=== PATIENT | female | born 1945 | race Caucasian/White ===

== ENCOUNTER 2025-08-15 08:48 | Outpatient (REF) | payer SELFPAY ==
--- OUTSIDE RECORDS SUMMARY | 2025-08-15 08:52 | XMS_ITS | Clinical Summary ---
Author Organization [facility] Address [address] [place] [address] Care Team Providers Care Layout Former Name Role Phone Danae Sanchez MD Primary Care Provider Allergies Active Allergy Reactions Criticality Noted Date Comments Lisinopril 09/21/2021 Medications Medication Sig Dispensed Refills Start Date End Date Status FLUoxetine (PROzac) 40 MG capsule Take 40 mg by mouth. 0 01/11/2019 Active hydroCHLOROthiazide (HYDRODIURIL) tablet 25 mg 0 04/14/2019 Active pravastatin (PRAVACHOL) tablet 20 mg 0 04/14/2019 Active amLODIPine (NORVASC) tablet 5 mg Take 5 mg by mouth. 0 01/11/2019 Activ e traZODone (DESYREL) 50 MG tablet 0 04/23/2019 Active Magnesium Oxide 400 (240 Mg) MG TABS Take 1 tablet by mouth. 0 06/13/2017 Active Multiple Vitamins tablet Take 1 tablet by mouth. 0 07/11/2014 Active [place]-3 Fatty Acids (FISH OIL) 1000 MG CAPS Take 1,000 mg by mouth. 0 01/10/2017 Active Timolol Maleate 0.5 % (DAILY) SOLN Apply 1 drop to eye. 0 Active vitamin E 400 UNIT capsule Take 1 capsule by mouth. 0 01/10/2017 Active acetaminophen (TYLENOL) 650 MG CR tablet Take 650 mg by mouth. 0 01/10/2017 Active aspirin 81 MG tablet Take 81 mg by mouth. 0 Active Calcium Carbonate-Vitamin D 600-400 MG-UNIT per tablet Take 1 tablet by mouth. 0 01/11/2019 Active fluticasone (FLONASE) 50 MCG/ACT nasal spray spray or apply 2 sprays inside Nose. 0 Active oxybutynin (DITROPAN) 5 MG tablet 0 07/31/2019 Active HYDROcodone-acetami nophen (NORCO) 5-325 MG per tablet Take 1 tab every 12 hours as needed for pain 20 tablet 0 10/15/2019 Active Coenzyme Q10 100 MG capsule Take 2 capsules by mouth daily. 0 Active albuterol 108 (90 Base) MCG/ACT inhaler 0 07/29/2021 Active celecoxib (CeleBREX) 200 MG capsule 0 07/29/2021 Active [place] Inhub 250-50 MCG/DOSE DISKUS 0 07/29/2021 Active gabapentin (NEURONTIN) 300 MG capsule 0 07/29/2021 Active acetaminophen (TYLENOL EXTRA STRENGTH) 500 MG tablet Take 500 mg by mouth. 0 Active amoxicillin (AMOXIL) 500 MG tablet Take 4 tabs 1 hour prior to dental appointment 20 tablet 3 08/10/2021 Active fluconazole (DIFLUCAN) 100 MG tablet 0 08/12/2021 Active Spiriva HandiHaler 18 MCG inhalation capsule 0 09/01/2021 Active oxyCODONE (ROXICODONE) 5 MG immediate release tablet Take 1 tab every 24 hours as needed for pain 30 tablet 0 12/21/2021 Active Synthroid 25 MCG tablet 0 03/15/2022 Active losartan (COZAAR) tablet 25 mg Take 25 mg by mouth daily. 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 Shoulder impingement, right 05/07/2019 Social History Tobacco Use Types Packs/Day Years Used Date Smoking Tobacco: Every Day Cigarettes 1 Smokeless Tobacco: Never Alcohol Use Standard Drinks/Week Comments Yes 3 (1 standard drink = 0.6 oz pur e alcohol) Sex and Gender Information Value Date Recorded Sex Assigned at Not on file Gender Identity Not on file Sexual Orientation Not on file Job Start Date Occupation Industry Not on file Not on file Not on file Last Filed Vital Signs Vital Sign Reading Time Taken Comments Blood Pressure - - Pulse - - Temperature - - Respiratory Rate - - Oxygen Saturation - - Inhaled Oxygen Concentration - - Weight 77.6 kg (171 lb) 03/23/2022 11:25 AM EDT Height 162.6 cm (5' 4 ) 03/23/2022 11:25 AM EDT Body Mass Index 29.35 03/23/2022 11:25 AM EDT Plan of Treatment Health Maintenance Due Date Last Done Comments Hepatitis C Screening 1945 COVID-19 Vaccine (#1) 06/18/1946 Depression Screening 1958 Preventative Health Evaluation 1964 Tobacco Cessation Counseling 1964 Shingrix-Zoster Vaccine (1 o f 2) 1996 Fall Risk Assessment 12/17/2011 Osteoporosis Screening (DEXA Scan) 12/17/2011 RSV Adult > 60+ Yrs or (1 - 1-dose 75+ series) 2021 Influenza Vaccine (#1) 2025 9, 06/15/2012, 07/26/2011 DTap / Tdap / Td (2 - Td or Tdap) 11/11/2031 11/11/2021 Pneumococcal Vaccine Completed 11/11/2021, 01/10/2017, 03/17/2011 Hepatitis B Vaccines Aged Out No long er eligible based on patient's age to complete this topic RSV Ped < 20 months Aged Out No longe r eligible based on patient's age to complete this topic Care Teams Layout Former Relationship Specialty Start Date End Date Danae Sanchez MD [address] [facility] [address] [place] [address] PCP - General Internal Medicine 04/05/19
--- OUTSIDE RECORDS SUMMARY | 2025-08-15 08:52 | XMS_ITS | Clinical Summary ---
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 Active timoloL maleate 0.5 % drops, once daily apply 1 Drop to the eye daily. Active aspirin 81 mg EC tablet Take 81 mg by mouth daily. Active albuterol HFA (PROAIR HFA ; PROVENTIL HFA ; VENTOLIN HFA) 90 mcg/actuation inhalerIndicati ons:ILD (interstitial lung disease) (CMS/HCC V24, CMS/HCC V28),Chronic obstructive pulmonary disease, unspecified COPD type (CMS/HCC V24, CMS/HCC V28) Inhale 2 puffs by mouth every 6 (six) hours if needed for wheezing. 3 each 3 5 09/25/19 26 Active FLUoxetine (PROzac) 40 mg capsule Take 1 capsule (40 mg total) by mouth 1 (one) time each day. 90 capsule 3 4 Active buPROPion XL (WELLBUTRIN XL) 150 mg 24 hr tablet Take 1 tablet (150 mg total) by mouth 1 (one) time each day in the morning. 90 tablet 3 5 Active traZODone (DESYREL) 100 mg tablet TAKE 1 TABLET BY MOUTH AT BEDTIME 90 tablet 3 5 Active levothyroxine (SYNTHROID, LEVOTHROID) 50 mcg tablet Take 1 tablet (50 mcg total) by mouth 1 (one) time each day. 90 tablet 3 5 Active meloxicam (MOBIC) 7.5 mg tablet Take 1 tablet (7.5 mg total) by mouth 1 (one) time each day. 90 tablet 3 5 Active oxyBUTYnin (DITROPAN) 5 mg tablet Take 1 tablet (5 mg total) by mouth 2 (two) times a day. 180 tablet 3 5 Active senna-docusate (PERICOLACE) 8.6-50 mg per tablet Take 1 tablet by mouth 1 (one) time each day. 90 each 3 5 Active fluticasone propionate (FLONASE) 50 mcg/actuation nasal spray Administer 2 sprays into each nostril 1 (one) time each day. 48 g 1 5 Active losartan (COZAAR) 25 mg tablet TAKE 1 TABLET BY MOUTH DAILY 90 tablet 3 5 Active tiotropium (Spiriva Respimat) 2.5 mcg/actuation inhalation sprayIndication s:ILD (interstitial lung disease) (CMS/HCC V24, CMS/HCC V28),Chronic obstructive pulmonary disease, unspecified COPD type (CMS/HCC V24, CMS/HCC V28) Inhale 2 puffs by mouth 1 (one) time each day. 3 each 3 5 03/10/20 26 Active Advair HFA 230-21 mcg/actuation inhalerIndicati ons:ILD (interstitial lung disease) (CMS/HCC V24, CMS/HCC V28),Chronic obstructive pulmonary disease, unspecified COPD type (CMS/HCC V24, CMS/HCC V28) INHALE 2 PUFFS BY MOUTH 2 TIMES A DAY. RINSE MOUTH WITH WATER AFTER USE TO REDUCE AFTERTASTE AND INCIDENCE OF CANDIDIASIS. DO NOT SWALLOW. 36 each 3 5 Active budesonide-form oteroL (Breyna) 160-4.5 mcg/actuation inhaler Inhale 2 puffs by mouth 2 (two) times a day. Rinse mouth with water after use to reduce aftertaste and incidence of candidiasis. Do not swallow. 3 each 3 5 03/10/20 26 Active pravastatin (PRAVACHOL) 20 mg tablet Take 1 tablet (20 mg total) by mouth 1 (one) time each day. 90 tablet 3 5 Active tiotropium (SPIRIVA RESPIMAT) 2.5 mcg/actuation inhalation sprayIndication s:Pulmonary emphysema, unspecified emphysema type Inhale 2 puffs by mouth 1 (one) time each day. 1 each 11 5 04/02/20 26 Active fluticasone furoate-vilante roL (Breo Ellipta) 200-25 mcg/dose inhaler Inhale 1 puff by mouth 1 (one) time each day. 1 each 11 5 04/23/20 26 Active fluticasone-ume clidinium-vilan terol (Trelegy Ellipta) 100-62.5-25 mcg inhaler Inhale 1 puff (100 mcg total) by mouth 1 (one) time each day. Rinse mouth with water after use to reduce aftertaste and incidence of candidiasis. Do not swallow. 3 each 3 5 07/31/20 26 Active blood pressure monitor (Blood Pressure Kit) kit 1 Kit by Does not apply route three times a week. 2 07/31/20 25 Discontin ued(Patie nt Discharge ) Active Problems Problem Noted Date Diagnosed Date Current smoker 08/07/2024 Depression 08/07/2024 Benign hypertension 08/07/2024 Assessment & Plan (10/31/2024 4:06 PM EST): Blood pressure is normal. I will discontinue hydrochlorothiazide. 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 Left ventricular systolic function was mildly reduced. I will discontinue hydrochlorothiazide and amlodipine. We will start low-dose losartan. Would like to arrange stress test. Assessment & Plan (10/31/2024 4:06 PM EST): Left ventricular systolic function was mildly reduced by echocardiogram but completely normal with stress test. Will update echocardiogram in 1 year. Interstitial lung disease (CMS/HCC V24, CMS/HCC V28) 10/18/2021 Overview (07/09/2024): Last Assessment & Plan: Mild interstitial lung disease Patient did not tolerate Ninetanib She continue doing all her regular activities with only with mild dyspnea on exertion Follow-up in 1 year with pulmonary function test. LBBB (left bundle branch block) 10/05/2020 Overview (07/09/2024): Last Assessment & Plan: Most likely from conduction system degenerative disorder. Assessment & Plan (10/31/2024 4:06 PM EST): Has been chronic. Will continue to monitor for further progression of arrhythmia. Orders: Transthoracic echocardiogram (TTE) complete with PRN contrast, bubble, strain, and 3D order panel; Future Nontraumatic complete tear of right rotator cuff 05/07/2019 Shoulder impingement, right 05/07/2019 Hyperlipidemia 01/30/2018 Overview (07/09/2024): Last Assessment & Plan: Has resumed statin. We will repeat another lipid profile in a couple of months. Suggest her to take coenzyme Q 10. Hypertension 01/30/2018 Overview (07/09/2024): Last Assessment & Plan: Overall well controlled. Insomnia 01/30/2018 Colon polyps 10/26/2017 Depression, major 06/13/2017 Degenerative joint disease (DJD) of hip 06/12/20 17 Glaucoma 01/10/2017 Degenerative joint disease of knee 07/12/2016 Osteoporosis 07/04/2016 Chronic constipation 01/04/2016 Encounters Date Type Department Care Team Description 08/06/2025 Lab Requisition [facility] [address] [place] [phone] Rogelio Avelar MD Anemia, unspecified 07/31/2025 3:00 PM EST Procedure visit Pulmonology [facility] 175 [facility] [address] [place] [phone] Dyspnea, unspecified type 07/31/2025 2:45 PM EST Office Visit Pulmonology [facility] [address] [phone] Akilah Bowen MD Dyspnea, unspecified type (Primary Dx); Pulmonary fibrosis (CMS/HCC V24, CMS/HCC V28); Chronic obstructive pulmonary disease, unspecified COPD type (CMS/HCC V24, CMS/HCC V28); Lung nodules; Recurrent pneumonia; Hypoxemia; Hospital discharge follow-up; Ex-smoker 07/30/2025 Lab Requisition [facility] [address] [place] [phone] Rogelio Avelar MD Anemia, unspecified 07/23/2025 Lab Requisition [facility] [address] [place] [phone] Rogelio Avelar MD Anemia, unspecified 07/20/2025 Lab Requisition [facility] [address] [place] [address] Rogelio Avelar MD Urinary tract infection, site not specified; Dysuria 07/17/2025 Lab Requisition [facility] [address] [place] [phone] Rogelio Avelar MD Anemia, unspecified from Last 3 Months Immunizations Immunization Administration Dates Next Due Influenza trivalent, 0.5mL (Fluad) 65yo and olde r 07/30/2019 Influenza trivalent, with pr eservative (Fluzone; Afluria) 6mo and older 06/15/2012,07/26/2011 Pneumococcal conjugate 13 va lent (Prevnar 13, PCV13) 2mo and older 01/10/2017 Pneumococcal conjugate 20 va lent (Prevnar 20, PCV 20) 2mo and older 08/03/2023 Pneumococcal polysaccharide 23 valent (Pneumovax 23) 2yo and older 11/11/2021,03/17/2011 Tdap Tetanus diptheria acell ular pertussis (Boostrix; Adacel) 7yo and older 11/11/2021,03/17/2011 Zoster Live 03/17/2011 Surgical History Surgery Date Site/Laterality Comments TUBAL LIGATION PROCEDURE: HISTORICAL TUBAL LIGATION TYMPANOSTOMY TUBE PLACEMENT PROCEDURE: HISTORICAL PE TUBES CATARACT EXTRACTION PROCEDURE: HISTORICAL CATARACT REMOVAL TOTAL KNEE ARTHROPLASTY PROCEDURE: TN ARTHRP KNE CONDYLE&PLATU MEDIAL&LAT COMPARTMENTS Medical History Medical History Date Comments Chronic constipation 01/04/2016 DX:Chronic constipation Colon polyps 10/26/2017 DX:Colon polyps Degenerative joint disease ( DJD) of hip 06/12/2017 DX:Degenerative joint diseas e (DJD) of hip Depression, major 06/13/2017 DX:Depression, major Degenerative joint disease of knee 07/12/2016 DX:Degenerative joint disease of knee Glaucoma 01/10/2017 DX:Glaucoma History of rheumatic fever 07/16/2018 DX:Hi story of rheumatic fever Hyperlipidemia 01/30/2018 DX:Hyperlipidemi a Hypertension 01/30/2018 DX:Hypertension Insomnia 01/30/2018 DX:Insomnia Osteoporosis 07/04/2016 DX:Osteoporosis Tobacco use 10/26/2017 DX:Tobacco use Family History Medical History Relation Name Comments Other: heart attack Father Breast cancer Mother's Sister Relation Name Status Comments Father Mother's Sister Alive Social History Tobacco Use Types Packs/Day Years Used Date Smoking Tobacco: Every Day Cigarettes 1 Last attempted to quit: 07/26/2021 Smokeless Tobacco: Never Tobacco Cessation:Ready to Q uit: Not Asked; Counseling Given: Not Answered Alcohol Use Standard Drinks/Week Comments Yes 0 (1 standard drink = 0.6 oz pur e alcohol) Housing Instability Answer Date Recorde d Are you worried that in the next 2 months you may not have stable housing? No 08/14/2024 Food Access & Nutrition Answer Date Rec orded Do you have access to a vari ety of food including fruits and vegetables? Yes 08/14/2024 Access to Healthcare Answer Date Record ed Within the last 3 months, ho w many times did you visit the emergency department for your medical care? 0 08/14/2024 Health Literacy Answer Date Recorded How often do you need to hav e someone help you when you read instructions, pamphlets, or other written material from your doctor or pharmacy? Never 08/14/2024 Caregiver: How often do you need to have someone help you when you read instructions, pamphlets, or other written material from your doctor or pharmacy? Not on file 08/14/2024 Financial Risk Answer Date Recorded How hard is it for you to pa y for the very basics like food, housing, medical care, and air conditioning / heating? Not very hard 08/14/2024 Transportation Answer Date Recorded Has the lack of transportati on kept you from meetings, work, or from getting things needed for daily living? No Has the lack of transportati on kept you from medical appointments or from getting medications? No 08/14/2024 Social Isolation Answer Date Recorded How often do you feel lonely or isolated from th ose around you? Rarely 08/14/2024 Food Risk Answer Date Recorded Within the past 12 months we worried whether our food would run out before we got money to buy more. Never true 08/14/2024 Within the past 12 months th e food we bought just didn't last and we didn't have money to get more. Never true 08/14/2024 Dependent Care Answer Date Recorded Do you need help finding or paying for care for your loved ones. For example, child development teacher or elderly care for an older adult? No 08/14/2024 Education Answer Date Recorded Do you think completing more education or training, like finishing a GED, going to college, or learning a trade, would be helpful for you? No 08/14/2024 Employment and Income Answer Date Recor ded During the last four weeks, have you been actively looking for work? No 08/14/2024 Living Situation Answer Date Recorded What is your living situation? Unrecognized valu e 08/14/2024 Interpersonal Safety Answer Date Record ed Physical Abuse Unrecognized value 12/24/2024 Verbal Abuse Unrecognized value 12/24/2024 Comments No Sex and Gender Information Value Date Recorded Sex Assigned at Female 08/19/2024 12:54 PM EST Legal Sex Female 12:49 AM EST Gender Identity Female 08/19/2024 12:54 PM EST Sexual Orientation Straight 08/19/2024 12 :54 PM EST Obstetrics History Para Term AB IAB SAB Ectopic Multiple Livin g Live Births 2 Last Filed Vital Signs Vital Sign Reading Time Taken Comments Blood Pressure 115/52 07/31/2025 2:45 PM EST Pulse 62 07/31/2025 2:45 PM EST Temperature 36.1 C (97 F) 07/31/2025 2:45 PM EST Respiratory Rate 18 07/31/2025 2:45 PM EST Oxygen Saturation 100% 07/31/2025 2:45 PM EST Inhaled Oxygen Concentration - - Weight 59 kg (130 lb) 07/31/2025 2:45 PM EST Height 162.6 cm (5' 4 ) 07/31/2025 2:45 PM EST Body Mass Index 22.31 07/31/2025 2:45 PM EST Plan of Treatment Upcoming Encounters Date Type Department Care Team (Late st Contact Info) Description 10/20/2025 3:30 PM EST Ancillary Procedure [facility] [address] [place] [phone] 12/01/2025 3:45 PM EDT Office Visit Pulmonology - [place] 175 [facility] [address] [place] [phone] Akilah Bowen MD [address] [place] [phone] Health Maintenance Due Date Last Done Comments Hepatitis C Screening 09/01/2022 Osteoporosis Screening (Bone Density Screening) 09/01/2022 Zoster Vaccines (3 of 3) 03/12/2025 01/15/2025, 02/24 COVID-19 Vaccine ( season) 2025 07/26/2024, 07/29/2023, 07/28/2022, Additional history exists Influenza Vaccine (#1) 2025 , 07/29/2023, 07/21/2022, Additional history exists Social Influencers of Health Screening 08/14/2025 08/14/2024 Medicare Annual Wellness Visit 08/21/2025 08/21/2024 Falls Risk Assessment 12/24/2025 12/24/2024, 024 Hypertension/CHF/CAD Annual BMP Blood Test 08/07/2026 08/07/2025, 07/31/2025, 07/24/2025, Additional history exists Cholesterol Screening (Lipid Panel) 09/02/2029 09/02/2024, 12/20/2023 DTaP,Tdap,and Td Vaccines (3 - Td or Tdap) 11/11/2031 11/11/2021, 03/17/2011 Lung Cancer Screening (Low Dose CT) Discontinued 10/19/2020 Pneumococcal Vaccine: 50+ Years Completed 08/03/2023, 11/11/2021, 01/10/2017, Additional history exists RSV Immunization Adult Patients Completed 08/11/2023 Colorectal Cancer Screening: Colonoscopy Discontinued 12/24/2024, 12/24/2024, 12/23/2024, Additional history exists Depression Screening Completed 01/07/2025 HIB Vaccines Aged Out No longer eligi ble based on patient's age to complete this topic HPV Vaccines Aged Out No longer eligi ble based on patient's age to complete this topic Hepatitis A Vaccines Aged Out No long er eligible based on patient's age to complete this topic Hepatitis B Vaccines Aged Out No long er eligible based on patient's age to complete this topic IPV Vaccines Aged Out No longer eligi ble based on patient's age to complete this topic MMR Vaccines Aged Out No longer eligi ble based on patient's age to complete this topic Meningococcal ACWY Vaccine Aged Out N o longer eligible based on patient's age to complete this topic Meningococcal B Vaccine Aged Out No l onger eligible based on patient's age to complete this topic RSV Immunization Patients Under 20 months Aged Out No longer eligible based on patient's age to complete this topic Varicella Vaccines Aged Out No longer eligible based on patient's age to complete this topic Procedures Procedure Name Priority Date/Time Associated Diagnosis Comments BASIC METABOLIC PANEL Routine 08/07/2025 8:19 AM EST Anemia, unspecified COMPLETE BLOOD COUNT Routine 08/07/2025 8:19 AM EST Anemia, unspecified SIX MINUTE WALK TEST Routine 07/31/2025 4:23 PM EST Dyspnea, unspecified type BASIC METABOLIC PANEL Routine 07/31/2025 7:33 AM EST Anemia, unspecified COMPLETE BLOOD COUNT Routine 07/31/2025 7:33 AM EST Anemia, unspecified BASIC METABOLIC PANEL Routine 07/24/2025 7:40 AM EDT Anemia, unspecified COMPLETE BLOOD COUNT Routine 07/24/2025 7:40 AM EDT Anemia, unspecified URINALYSIS WITH REFLEX MICROSCOPIC Routine 07/19/2025 9:00 PM EDT Urinary tract infection, site not specified Dysuria URINALYSIS WITH REFLEX MICROSCOPIC Routine 07/19/2025 9:00 PM EDT Urinary tract infection, site not specified Dysuria CULTURE URINE Routine 07/19/2025 9:00 PM EDT Urinary tract infection, site not specified Dysuria COMPREHENSIVE METABOLIC PANEL Routine 07/17/2025 10:02 AM EDT Anemia, unspecified COMPLETE BLOOD COUNT Routine 07/17/2025 10:02 AM EDT Anemia, unspecified COLONOSCOPY Routine 12/24/2024 12:04 PM EDT Colon cancer screening LIPID PANEL WITH REFLEX TO DIRECT LDL Routine 09/02/2024 10:17 AM EST Mixed hyperlipidemia Primary hypertension Cardiomyopathy, unspecified type (CMS/HCC V24, CMS/HCC V28) CT LUNG SCREENING LOW DOSE Routine 10/19/2020 4:14 PM EST Personal history of nicotine dependence from Last 3 Months or Most Recently Relevant to Health Maintenance Results * (ABNORMAL) Complete blood count (08/07/2025 8:19 AM EST) Only the most recent of4 resultswithin the time period is included. WBC 11.7(H) 4.8 - 10.8 K/mcL LAB HEMETOLOGY METHOD 08/07/2025 11:34 AM [facility] RBC 3.30(L) 3.80 - 4.80 M/mcL LAB HEMETOLOGY METHOD 08/07/2025 11:34 AM [facility] Hemoglobin 9.7(L) 11.5 - 16.0 g/dL LAB HEMETOLOGY METHOD 08/07/2025 11:34 AM [facility] Hematocrit 30.4(L) 35.0 - 47.0 % LAB HEMETOLOGY METHOD 08/07/2025 11:34 AM [facility] MCV 93.3 79.0 - 98.0 FL LAB HEMETOLOGY METHOD 08/07/2025 11:34 AM [facility] MCH 29.8 27.0 - 32.0 pcg LAB HEMETOLOGY METHOD 08/07/2025 11:34 AM [facility] MCHC 31.9(L) 32.0 - 37.0 g/dL LAB HEMETOLOGY METHOD 08/07/2025 11:34 AM [facility] RDW 17.7(H) 11.0 - 15.0 % LAB HEMETOLOGY METHOD 08/07/2025 11:34 AM [facility] Platelets 339 130 - 400 K/mcL LAB HEMETOLOGY METHOD 08/07/2025 11:34 AM [facility] MPV 10.4 7.0 - 11.0 FL LAB HEMETOLOGY METHOD 08/07/2025 11:34 AM [facility] NRBC 0.0 <1.0 % LAB HEMETOLOGY METHOD 08/07/2025 11:34 AM [facility] NRBC Absolute 0.00 <0.10 K/mcL LAB HEMETOLOGY METHOD 08/07/2025 11:34 AM [facility] Blood Venous blood specimen / Unknown Venipuncture / Unknown 08/07/2025 8:19 AM EST 08/07/2025 11:18 AM EST us Rogelio Avelar MD LAB BLOOD ORDERABLES Final Result [facility] [address] [place] [address], [place] [phone] * (ABNORMAL) Basic metabolic panel (08/07/2025 8:19 AM EST) Only the most recent of3 resultswithin the time period is included. Sodium 140 133 - 145 mmol/L LAB CHEMISTRY METHOD 08/07/2025 12:14 PM [facility] Potassium 3.6 3.5 - 5.5 mmol/L LAB CHEMISTRY METHOD 08/07/2025 12:14 PM [facility] Chloride 102 96 - 110 mmol/L LAB CHEMISTRY METHOD 08/07/2025 12:14 PM [facility] CO2 32 21 - 32 mmol/L LAB CHEMISTRY METHOD 08/07/2025 12:14 PM [facility] Anion Gap 6 3 - 11 LAB CHEMISTRY METHOD 08/07/2025 12:14 PM [facility] Glucose 53(L) 70 - 100 mg/dL LAB CHEMISTRY METHOD 08/07/2025 12:14 PM [facility] BUN 26(H) 5 - 25 mg/dL LAB CHEMISTRY METHOD 08/07/2025 12:14 PM [facility] Creatinine 1.05 0.50 - 1.10 mg/dL LAB CHEMISTRY METHOD 08/07/2025 12:14 PM [facility] eGFR 54(L) >=60 mL/min/1. 73m2 LAB CHEMISTRY METHOD 08/07/2025 12:14 PM EST [facility] Comment:Calculation based on the Chronic Kidney Disease Epidemiology Collaboration (CKD-EPI) equation refit without adjustment for race. BUN/Creatinine Ratio 24.8 LAB CHEMISTRY METHOD 08/07/2025 12:14 PM EST [facility] Calcium 8.2(L) 8.5 - 10.5 mg/dL LAB CHEMISTRY METHOD 08/07/2025 12:14 PM EST [facility] Blood Venous blood specimen / Unknown Venipuncture / Unknown 08/07/2025 8:19 AM EST 08/07/2025 11:21 AM EST us Rogelio Avelar MD LAB BLOOD ORDERABLES Final Result [facility] [address] [place] [address], [place] [phone] * 6 minute walk test (07/31/2025 4:23 PM EST) Impressions Akilah Bowen MD - 07/31/2025 4:23 PM EST Modified Walked six minutes covering, Mild SOB Lowest oxygen saturation was 88%. Returned to [facility] lab for Rest & Recovery. After 1 min RaSpO2 = 97% HR = 70; After 2 min RaSpO2 = 99% HR = 64. Pt has indication for supplemental Oxygen for activity on 1-2lpm. us Akilah Bowen MD IN CLINIC/BEDSIDE ORDERABLES Fin al Result * (ABNORMAL) Urinalysis with reflex microscopic (07/19/2025 9:00 PM EDT) Specific [place] Urine 1.013 1.003 - 1.030 LAB URINALYSIS - AUTOMATED METHOD 07/20/2025 11:08 AM EDT [facility] pH, Urine 6.5 5.0 - 8.0 pH LAB URINALYSIS - AUTOMATED METHOD 07/20/2025 11:08 AM EDT [facility] Leukocytes, Urine Large(A) Negative LAB URINALYSIS - AUTOMATED METHOD 07/20/2025 11:08 AM [facility] Nitrite, Urine Negative Negative LAB URINALYSIS - AUTOMATED METHOD 07/20/2025 11:08 AM [facility] Protein, Urine 30(A) <=Trace mg/dL LAB URINALYSIS - AUTOMATED METHOD 07/20/2025 11:08 AM [facility] Glucose, Urine 250(A) Negative mg/dL LAB URINALYSIS - AUTOMATED METHOD 07/20/2025 11:08 AM [facility] Ketones, Urine Negative Negative mg/dL LAB URINALYSIS - AUTOMATED METHOD 07/20/2025 11:08 AM [facility] Urobilinogen , Urine 0.2 0.2 - 1.0 mg/dL LAB URINALYSIS - AUTOMATED METHOD 07/20/2025 11:08 AM [facility] Bilirubin, Urine Negative Negative LAB URINALYSIS - AUTOMATED METHOD 07/20/2025 11:08 AM [facility] Blood, Urine Small(A) Negative LAB URINALYSIS - AUTOMATED METHOD 07/20/2025 11:08 AM [facility] RBC, Urine 1.0 0 - 4 /HPF LAB URINALYSIS - AUTOMATED METHOD 07/20/2025 11:08 AM [facility] WBC, Urine 811.7(H) 0 - 4 /HPF LAB URINALYSIS - AUTOMATED METHOD 07/20/2025 11:08 AM [facility] Squamous Epithelial, Urine 19 0 - 60 /LPF LAB URINALYSIS - AUTOMATED METHOD 07/20/2025 11:08 AM [facility] Crystals, Urine LT CALCIUM OXALATE /LPF LAB URINALYSIS - AUTOMATED METHOD 07/20/2025 11:08 AM [facility] Bacteria, Urine Moderate(A) Negative /HPF LAB URINALYSIS - AUTOMATED METHOD 07/20/2025 11:08 AM EDT [facility] Hyaline Casts, Urine 2.1 0 - 3 /LPF LAB URINALYSIS - AUTOMATED METHOD 07/20/2025 11:08 AM EDT [facility] Yeast, Urine Present(A) None /HPF LAB URINALYSIS - AUTOMATED METHOD 07/20/2025 11:08 AM EDT [facility] Urine Urinary bladder structure / Unknown 07/19/2025 9:00 PM EDT 07/20/2025 9:41 AM EDT us Rogelio vAelar MD LAB URINE ORDERABLES Final Result Performing Organization Address City/[facility]/ZIP Co de Phone Number [facility] [address] [place] [address], [place] [phone] * (ABNORMAL) Culture urine (07/19/2025 9:00 PM EDT) Pathologist [facility] Culture, Urine 50,000-100, 000 CFU/mL Laura glabrata(A) THONG 07/24/2025 10:05 AM EDT [facility] Comment: The organism value for this result has been updated. These results have been appended to the previously preliminary verified report. Edited result: Previously reported as Yeast on 07/23/2025 at 0932 EDT. Urine Urinary bladder structure / Unknown 07/19/2025 9:00 PM EDT 07/20/2025 9:41 AM EDT us Rogelio Avelar MD LAB MICROBIOLOGY - GENERAL ORDERABLES Final Result [facility] [address] [place] [address], [place] [phone] * (ABNORMAL) Comprehensive metabolic panel (07/17/2025 10:02 AM EDT) Sodium 138 133 - 145 mmol/L LAB CHEMISTRY METHOD 07/17/2025 2:45 PM [facility] Potassium 3.6 3.5 - 5.5 mmol/L LAB CHEMISTRY METHOD 07/17/2025 2:45 PM [facility] Chloride 98 96 - 110 mmol/L LAB CHEMISTRY METHOD 07/17/2025 2:45 PM [facility] CO2 30 21 - 32 mmol/L LAB CHEMISTRY METHOD 07/17/2025 2:45 PM [facility] Anion Gap 10 3 - 11 LAB CHEMISTRY METHOD 07/17/2025 2:45 PM [facility] Glucose 67(L) 70 - 100 mg/dL LAB CHEMISTRY METHOD 07/17/2025 2:45 PM [facility] BUN 27(H) 5 - 25 mg/dL LAB CHEMISTRY METHOD 07/17/2025 2:45 PM [facility] Creatinine 1.33(H) 0.50 - 1.10 mg/dL LAB CHEMISTRY METHOD 07/17/2025 2:45 PM [facility] eGFR 41(L) >=60 mL/min/1. 73m2 LAB CHEMISTRY METHOD 07/17/2025 2:45 PM [facility] Comment:Calculation based on the Chronic Kidney Disease Epidemiology Collaboration (CKD-EPI) equation refit without adjustment for race. BUN/Creatinine Ratio 20.3 LAB CHEMISTRY METHOD 07/17/2025 2:45 PM [facility] Calcium 9.2 8.5 - 10.5 mg/dL LAB CHEMISTRY METHOD 07/17/2025 2:45 PM [facility] AST (SGOT) 23 10 - 42 unit/L LAB CHEMISTRY METHOD 07/17/2025 2:45 PM [facility] ALT (SGPT) 13 10 - 60 unit/L LAB CHEMISTRY METHOD 07/17/2025 2:45 PM [facility] Alkaline Phosphatase 65 42 - 121 unit/L LAB CHEMISTRY METHOD 07/17/2025 2:45 PM EDT [facility] Total Protein 5.5(L) 6.0 - 8.0 g/dL LAB CHEMISTRY METHOD 07/17/2025 2:45 PM EDT [facility] Albumin 2.5(L) 3.2 - 5.0 g/dL LAB CHEMISTRY METHOD 07/17/2025 2:45 PM EDT [facility] Total Bilirubin 0.3 0.0 - 1.4 mg/dL LAB CHEMISTRY METHOD 07/17/2025 2:45 PM EDT [facility] Blood Venous blood specimen / Unknown Venipuncture / Unknown 07/17/2025 10:02 AM EDT 07/17/2025 12:10 PM EDT Rogelio Avelar MD LAB BLOOD ORDERABLES Final Result Performing Organization Address City/State/[facility] Co de Phone Number [facility] [address] [place] [address], * COLONOSCOPY Anesthesia - MAC; [facility] ENDOSCOPY (12/24/2024 12:04 PM EDT) Anatomical Region Laterality Modality Endoscopy 12/24/2024 11:4 5 AM EDT Impressions 12/24/2024 12:05 PM EDT - One 8 mm polyp in the ascending colon, removed with a cold snare. Resected and retrieved. - A single (solitary) ulcer in the transverse colon. Clip (MR conditional) was placed. 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 - Diverticulosis in the sigmoid colon and in the descending colon. - Internal hemorrhoids. Recommendation: - Await pathology results. - No repeat colonoscopy due to age. Narrative 12/24/2024 12:05 PM EDT [facility] Patient Name: Mendy Jiang Procedure Date: 12/24/2024 11:45 AM Date of : 1945 Age: 79 Gender: Female Note Status: Finalized Attending MD: Janeth Mendoza MD, Procedure Date No Time: 12/24/2024 Procedure: Colonoscopy Indications: Surveillance: Personal history of adenomatous polyps, inadequate prep on last colonoscopy (less than 1 year ago) Providers: Janeth Mendoza MD Referring MD: Janeth Mendoza MD Medicines: Monitored Anesthesia Care Complications: No immediate complications. Estimated blood loss: Minimal. Estimated Blood Loss: Estimated blood loss was minimal. Procedure: Pre-Anesthesia Assessment: - Prior to the procedure, a History and Physical was performed, and patient medications and allergies were reviewed. The patient is competent. The risks and benefits of the procedure and the sedation options and risks were discussed with the patient. All questions were answered and informed consent was obtained. Patient identification and proposed procedure were verified by the physician, the nurse, the textile scrap salvager and the material handling technician in the pre-procedure area in the endoscopy suite. Mental Status Examination: alert and oriented. Airway Examination: normal oropharyngeal airway and neck mobility. Respiratory Examination: clear to auscultation. CV Examination: normal. Prophylactic Antibiotics: The patient does not require prophylactic antibiotics. Prior Anticoagulants: The patient has taken no anticoagulant or antiplatelet agents. ASA Grade Assessment: III - A patient with severe systemic disease. After reviewing the risks and benefits, the patient was deemed in satisfactory condition to undergo the procedure. The anesthesia plan was to use monitored anesthesia care (MAC). Immediately prior to administration of medications, the patient was re-assessed for adequacy to receive sedatives. The heart rate, respiratory rate, oxygen saturations, blood pressure, adequacy of pulmonary ventilation, and response to care were monitored throughout the procedure. The physical status of the patient was re-assessed after the procedure. After I obtained informed consent, the scope was passed under direct vision. Throughout the procedure, the patient's blood pressure, pulse, and oxygen saturations were monitored continuously. The Colonoscope was introduced through the anus and advanced to the cecum, identified by appendiceal orifice and ileocecal valve. The colonoscopy was performed without difficulty. The patient tolerated the procedure well. The quality of the bowel preparation was good. Findings: The perianal and digital rectal examinations were normal. An 8 mm polyp was found in the ascending colon. The polyp was multi-lobulated. The polyp was removed with a cold snare. Resection and retrieval were complete. Estimated blood loss was minimal. A single (solitary) nine mm ulcer was found in the transverse colon. No bleeding was present. No stigmata of recent bleeding were seen. To prevent bleeding after the polypectomy, one hemostatic clip was successfully placed (MR conditional). 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 There was no bleeding at the end of the procedure. Estimated blood loss was minimal. Many small and large-mouthed diverticula were found in the sigmoid colon and descending colon. Internal hemorrhoids were found during retroflexion. The hemorrhoids were Grade II (internal hemorrhoids that prolapse but reduce spontaneously). Procedure Code(s): --- Professional --- 05758, Colonoscopy, flexible; with removal of tumor(s), polyp(s), or other lesion(s) by snare technique Diagnosis Code(s): --- Professional --- D12.2, Benign neoplasm of ascending colon K63.3, Ulcer of intestine CPT copyright 2020 [employer]. All rights reserved. The codes documented in this report are preliminary and upon stencil machine operator review may be revised to meet current compliance requirements. Janeth Mendoza MD 12/24/2024 12:05:27 PM This report has been signed electronically.Janeth Mendoza MD Number of Addenda: 0 Note Initiated On: 12/24/2024 11:45 AM Scope Withdrawal Time: 0 hours 7 minutes 53 seconds Scope In: 11:51:22 AM Scope Out: 12:03:03 PM Endoscopy Department at [facility] - [address] [place] [phone] Procedure Note Janeth Mendoza MD - 12/24/2024 [facility] Patient Name: Mendy Jiang Procedure Date: 12/24/2024 11:45 AM Date of : 1945 Age: 79 Gender: Female Note Status: Finalized Attending MD: Janeth Mendoza MD, Procedure Date No Time: 12/24/2024 Procedure: Colonoscopy Indications: Surveillance: Personal history of adenomatouspolyps, inadequate prep on last colonoscopy (less than 1year ago) Providers: Janeth Mendoza MD Referring MD: Janeth Mendoza MD Medicines: Monitored Anesthesia Care Complications: No immediate complications. Estimated blood loss: Minimal. Estimated Blood Loss: Estimated blood loss was minimal. Procedure: Pre-Anesthesia Assessment: - Prior to the procedure, a History and Physicalwas performed, and patient medications and allergieswere reviewed. The patient is competent. The risks and benefits of the procedure and the sedation optionsand risks were discussed with the patient. Allquestions were answered and informed consent was obtained. Patient identification and proposed procedure were verified by the physician, the nurse, theanesthetist and the material handling technician in the pre-procedure area in the endoscopy suite. Mental Status Examination: alertand oriented. Airway Examination: normal oropharyngeal airway and neck mobility. Respiratory Examination: clear to auscultation. CV Examination: normal. Prophylactic Antibiotics: The patient does notrequire prophylactic antibiotics. Prior Anticoagulants: The patient has taken no anticoagulant or antiplatelet agents. ASA Grade Assessment: III - A patient with severe systemic disease. After reviewing the risksand benefits, the patient was deemed in satisfactory condition to undergo the procedure. The anesthesia plan was to use monitored anesthesia care (MAC). Immediately prior to administration of medications, the patient was re-assessed for adequacy to receive sedatives. The heart rate, respiratory rate, oxygen saturations, blood pressure, adequacy of pulmonary ventilation, and response to care were monitored throughout the procedure. The physical status ofthe patient was re-assessed after the procedure. After I obtained informed consent, the scope was passed under direct vision. Throughout theprocedure, the patient's blood pressure, pulse, and oxygen saturations were monitored continuously. The Colonoscope was introduced through the anus and advanced to the cecum, identified by appendiceal orifice and ileocecal valve. The colonoscopy was performed without difficulty. The patient tolerated the procedure well. The quality of the bowel preparation was good. Findings: The perianal and digital rectal examinations were normal. An 8 mm polyp was found in the ascending colon. The polyp was multi-lobulated. The polyp was removedwith a cold snare. Resection and retrieval werecomplete. Estimated blood loss was minimal. A single (solitary) nine mm ulcer was found in the transverse colon. No bleeding was present. Nostigmata of recent bleeding were seen. To prevent bleeding after the polypectomy, one hemostatic clip was successfully placed (MR conditional). 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 There was nobleeding at the end of the procedure. Estimated blood losswas minimal. Many small and large-mouthed diverticula were foundin the sigmoid colon and descending colon. Internal hemorrhoids were found duringretroflexion. The hemorrhoids were Grade II (internal hemorrhoids that prolapse but reduce spontaneously). Procedure Code(s): --- Professional --- 91484, Colonoscopy, flexible; with removal of tumor(s), polyp(s), or other lesion(s) by snare technique Diagnosis Code(s): --- Professional --- D12.2, Benign neoplasm of ascending colon K63.3, Ulcer of intestine CPT copyright 2020 [employer]. All rights reserved. The codes documented in this report are preliminary and upon stencil machine operator reviewmay be revised to meet current compliance requirements. Janeth Mendoza MD 12/24/2024 12:05:27 PM This report has been signed electronically.Janeth Mendoza MD Number of Addenda: 0 Note Initiated On: 12/24/2024 11:45 AM Scope Withdrawal Time: 0 hours 7 minutes 53 seconds Scope In: 11:51:22 AM Scope Out: 12:03:03 PM Endoscopy Department at [facility] - [address] [place] [id number] IMPRESSION: - One 8 mm polyp in the ascending colon, removed with a cold snare. Resected and retrieved. - A single (solitary) ulcer in the transversecolon. Clip (MR conditional) was placed. 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 - Diverticulosis in the sigmoid colon and in the descending colon. - Internal hemorrhoids. Recommendation: - Await pathology results. - No repeat colonoscopy due to age. us Janeth Mendoza MD GI~PROCEDURE ORDERABLES Fin al Result * Lipid panel with reflex to direct LDL (09/02/2024 10:17 AM EST) Cholesterol 182 0 - 200 mg/dL LAB CHEMISTRY METHOD 09/02/2024 3:55 PM EST [facility] Triglycerides 113 0 - 150 mg/dL LAB CHEMISTRY METHOD 09/02/2024 3:55 PM EST [facility] HDL 64 >=40 mg/dL LAB CHEMISTRY METHOD 09/02/2024 3:55 PM EST [facility] LDL Calculated 95 0 - 100 mg/dL LAB CHEMISTRY METHOD 09/02/2024 3:55 PM EST [facility] VLDL Cholesterol Nicko 22.6 mg/dL LAB CHEMISTRY METHOD 09/02/2024 3:55 PM EST [facility] Non HDL Chol. (LDL+VLDL) 118 <145 mg/dL LAB CHEMISTRY METHOD 09/02/2024 3:55 PM EST [facility] Chol/HDL Ratio 2.8 0.0 - 4.4 LAB CHEMISTRY METHOD 09/02/2024 3:55 PM EST [facility] Blood Venous blood specimen / Unknown Venipuncture / Unknown 09/02/2024 10:17 AM EST 09/02/2024 10:17 AM EST us Danae Sanchez MD LAB BLOOD ORDERABLES Final Res ult [facility] [address] [place] [address], * CT LUNG SCREENING LOW DOSE (10/19/2020 4:14 PM EST) Anatomical Region Laterality Modality Computed Tomogra phy 10/19/2020 2:39 PM EST Narrative 10/19/2020 4:14 PM [facility] [address] [place] [address] Patient: MENDY JIANG./Age/Sex: 1945 - 74 - F Unit#: [id number] Location/Status: SPDICATLS/REG CLI Mnemonic/Ordering Site: [facility] Ordering Physician: DAVE LARKIN MD CT Lung Screening Low Dose - 10/19/20 - 1449 History: 54 pack-year current smoker screening for lung malignancy. Comparison: 09/23/2019 Findings: Noncontrast low dose chest CT (LDCT) was performed per lung cancer CT screening protocol on a GE multidetector scanner. The CT scanner utilized low- dose iterative reconstruction technique with automatic exposure control based on patient size. Dose: 154.91 mGy-cm DLP No incidental findings per PQRS measures. Lungs demonstrate emphysematous changes with bullous disease and peripheral lung scarring, similar to prior exam. Grossly stable 2 mm noncalcified right lower lobe pulmonary nodule on series 3 image 109. Essentially stable 2 mm subpleural nodule left lower lobe noted on series 3 image 131. No suspicious pulmonary nodule. No thoracic adenopathy appreciated. Normal thyroid. No pericardial or pleural effusions. Coronary vascular calcification. Limited views of the upper abdomen appear within normal limits. Anterior spurring the thoracic spine. IMPRESSION: No suspicious pulmonary nodule. Chronic emphysematous changes with bilateral lung scarring Lung RADS 1.1: Category 2: Recommend LDCT in 12 months. G0297 G9637 G9557 G9551 Dictating Physician: KENROY BEEBE MD Electronically Signed by: KENROY BEEBE MD Dic Date/Time: 10/19/20 1605 Sign date/Time: 10/19/20 1614 Procedure Note Kenroy Beebe MD - 09/13/2022 [facility] Diagnostic Imaging Department [address] [place] [id number] Patient: MENDY JIANG D.O.B./Age/Sex: 1945 - 74 - F Unit#: [id number] Location/Status: SPDICATLS/REG CLI Mnemonic/Ordering Site: [facility] Ordering Physician: DAVE LARKIN MD CT Lung Screening Low Dose - 10/19/20 - 1449 History: 54 pack-year current smoker screening for lung malignancy. Comparison: 09/23/2019 Findings: Noncontrast low dose chest CT (LDCT) was performed per lungcancer CT screening protocol on a GE multidetector scanner. The CT scanner utilizedlow- dose iterative reconstruction technique with automatic exposure controlbased on patient size. Dose: 154.91 mGy-cm DLP No incidental findings per PQRS measures. Lungs demonstrate emphysematous changes with bullous disease andperipheral lung scarring, similar to prior exam. Grossly stable 2 mm noncalcified right lower lobe pulmonary nodule onseries 3 image 109. Essentially stable 2 mm subpleural nodule left lower lobe noted on series3 image 131. No suspicious pulmonary nodule. No thoracic adenopathy appreciated. Normal thyroid. No pericardial or pleural effusions. Coronary vascular calcification. Limited views of the upper abdomen appear within normal limits. Anterior spurring the thoracic spine. IMPRESSION: No suspicious pulmonary nodule. Chronic emphysematous changes with bilateral lung scarring Lung RADS 1.1: Category 2: Recommend LDCT in 12 months. 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 [address] [place] [address] PCP - General Internal Medicine 08/06/24
--- OUTSIDE RECORDS SUMMARY | 2025-08-15 08:52 | XMS_ITS | Clinical Summary ---
Author Organization [facility] Address [address] [place] [address] Care Team Providers Care [employer] Name Role Phone Danae Sanchez MD Primary Care Provider [phone] Allergies No known active allergies Medications albuterol (PROVENTIL HFA; VENTOLIN HFA) 108 (90 Base) MCG/ACT inhaler Inhale 2 puffs 4 times daily (every 6 hours) as needed. 09/25/19 25 026 Active buPROPion (WELLBUTRIN XL) 150 MG 24 hr tablet Take 1 tablet (150 mg total) by mouth every morning. 10/14/19 25 Active cyclobenzaprine (FLEXERIL) 5 MG tablet 3 (three) times a day as needed. 05/16/20 24 Active dorzolamide-timol ol (COSOPT) 2-0.5 % ophthalmic solution 1 drop. 01/25/20 25 Active FLUoxetine (PROzac) 40 MG capsule Take 1 capsule (40 mg total) by mouth every morning. 09/02/20 24 Active levothyroxine (SYNTHROID, LEVOTHROID) 50 MCG tablet 1 tablet (50 mcg total) daily on an empty stomach. 11/01/19 25 Active losartan (COZAAR) 25 MG tablet Take 1 tablet (25 mg total) by mouth every morning. 11/01/19 25 Active meloxicam (MOBIC) 7.5 MG tablet Take 1 tablet (7.5 mg total) by mouth daily. 11/01/19 25 Active oxybutynin (DITROPAN) 5 mg tablet Take 1 tablet (5 mg total) by mouth 2 times a day. 11/01/19 25 Active traZODone (DESYREL) 100 MG tablet Take 1 tablet (100 mg total) by mouth nightly. 10/31/19 25 Active oxyCODONE (ROXICODONE) 5 MG immediate release tablet 04/29/20 25 Active gabapentin (NEURONTIN) 100 MG capsule 2 capsules (200 mg total) by Mouth/Oral Cavity route every 12 hours. 04/21/20 25 Active timolol (BETIMOL) 0.5 % ophthalmic solution Administer 1 drop to the right eye 2 (two) times a day. Active timolol (BETIMOL) 0.25 % ophthalmic solution Administer 1 drop into the left eye daily. Active aspirin enteric coated 81 MG EC tabletIndications :S/P reverse total shoulder arthroplasty, left Take 1 tablet (81 mg total) by mouth 2 times a day. 84 tablet 05/02/20 25 Active acetaminophen (TYLENOL) 325 MG tabletIndications :S/P reverse total shoulder arthroplasty, left Take 3 tablets (975 mg total) by mouth every 8 (eight) hours around the clock. 05/02/20 25 Active PANTOprazole (PROTONIX) 40 MG EC tabletIndications :S/P reverse total shoulder arthroplasty, left Take 1 tablet (40 mg total) by mouth daily. 30 tablet 05/02/20 25 Active senna-docusate (SENNA-S) 8.6-50 MGIndications:S/P reverse total shoulder arthroplasty, left Take 1 tablet by mouth daily as needed for constipation. 14 tablet 05/02/20 25 Active oxyCODONE (ROXICODONE) 10 mg immediate release tabletIndications :S/P reverse total shoulder arthroplasty, left Take 1 tablet (10 mg total) by mouth every 4 (four) hours as needed for moderate pain. Max Daily Amount: 60 mg 05/12/20 25 Active oxyCODONE (ROXICODONE) 5 MG immediate release tabletIndications :S/P reverse total shoulder arthroplasty, left Take 1 tablet (5 mg total) by mouth every 4 (four) hours as needed for severe pain. Max Daily Amount: 30 mg 05/12/20 25 Active carvedilol (COREG) 3.125 MG tabletIndications :S/P reverse total shoulder arthroplasty, left Take 1 tablet (3.125 mg total) by mouth 2 (two) times a day with meals. 05/12/20 Active empagliflozin (JARDIANCE) 10 MG tabletIndications :S/P reverse total shoulder arthroplasty, left Take 1 tablet (10 mg total) by mouth daily. 05/13/20 25 026 Active fluticasone-umecl idinium-vilantero l (TRELEGY ELLIPTA) 100-62.5-25 mcg/act inhalerIndication s:S/P reverse total shoulder arthroplasty, left Inhale 1 puff daily. Do not start before May 13, 2025. 05/13/20 25 Active furosemide (LASIX) 40 MG tabletIndications :S/P reverse total shoulder arthroplasty, left Take 1 tablet (40 mg total) by mouth daily. 05/13/20 25 Active empty syringe 1 each with levothyroxine 100 MCG SOLR 125 mcgIndications:S/ P reverse total shoulder arthroplasty, left Infuse 125 mcg into a venous catheter 2 (two) times a week on Monday and . 05/12/20 Active nystatin (MYCOSTATIN) 763394 UNIT/ML suspensionIndicat ions:S/P reverse total shoulder arthroplasty, left Take 5 mL (500,000 Units total) by mouth 4 (four) times a day. 05/12/20 25 Active PANTOprazole (PROTONIX) 40 MG EC tabletIndications :S/P reverse total shoulder arthroplasty, left Take 1 tablet (40 mg total) by mouth daily. 05/13/20 Active polyethylene glycol 17 g packetIndications :S/P reverse total shoulder arthroplasty, left Take 1 packet (17 g total) by mouth daily as needed for constipation (first line). 05/12/20 25 Active predniSONE (DELTASONE) 20 MG tabletIndications :S/P reverse total shoulder arthroplasty, left Take 3 tablets (60 mg total) by mouth daily. With food. 05/13/20 25 Active predniSONE (DELTASONE) 50 MG tabletIndications :S/P reverse total shoulder arthroplasty, left Take 1 tablet (50 mg total) by mouth daily. With food. Do not start before May 14, 2025. 05/14/20 25 Active predniSONE (DELTASONE) 20 MG tabletIndications :S/P reverse total shoulder arthroplasty, left Take 2 tablets (40 mg total) by mouth daily. With food. Do not start before May 16, 2025. 05/16/20 Active predniSONE (DELTASONE) 10 MG tabletIndications :S/P reverse total shoulder arthroplasty, left Take 3 tablets (30 mg total) by mouth daily. With food. Do not start before May 18, 2025. 05/18/20 Active predniSONE (DELTASONE) 20 MG tabletIndications :S/P reverse total shoulder arthroplasty, left Take 1 tablet (20 mg total) by mouth daily. With food. Do not start before May 20, 2025. 05/20/20 Active predniSONE (DELTASONE) 10 MG tabletIndications :S/P reverse total shoulder arthroplasty, left Take 1 tablet (10 mg total) by mouth daily. With food. Do not start before May 22, 2025. 05/22/20 Active Active Problems Problem Noted Date Diagnosed Date Hypokalemia from diuretics 05/09/2025 Assessment & Plan (05/11/2025 1:21 PM EDT): Resolved Assessment & Plan (05/10/2025 12:58 PM EDT): From diuretics Lab workup showed potassium 3.4 Will replete potassium with 60 mEq of potassium chloride Monitor the potassium level close Assessment & Plan (05/09/2025 3:08 PM EDT): From diuretics use Lab workup showed potassium of 3.3 Heart failure with reduced ejection fraction Assessment & Plan (05/11/2025 1:21 PM EDT): Respiratory history has been getting better initially patient was on high flow nasal cannula nonbreathing mask and currently on 1.5 L of oxygen and maintaining saturation of 97%.off oxygen patient desaturated to 86% today CT chest angio showed no evidence of pulmonary embolism, diffuse patchy opacities in bilateral lungs likely presented pneumonia, pulmonary edema or atelectasis is superimposed on pulmonary fibrosis. - Echo showed decrease in LV function with ejection fraction of 30%, there is global hypokinesia with akinesia of the apex, wall motion based preserved in the basal to mid anterior lateral wall.estimated RVSP of 47 mmHg Procalcitonin 0.55, MRSA negative respiratory viral panel negative Urine output 1800 mL in 24 hour -proBNP I worsened 5002 --> 61,288(05/07/2025) Completed ceftriaxone and doxycycline for aspiration pneumonia( 03/31) on 05/10/2025 Continue Solu-Medrol 40 mg IV push once a day today and will transition to tapering dose of prednisone from tomorrow Continue Trelegy, DuoNebs scheduled and as needed Continue Jardiance 10 mg once a day and carvedilol 3.125 mg 2 times a day, lasix 40 mg x daily Pulmonology and cardiology is following Outpatient stress test as per cardiology Assessment & Plan (05/10/2025 2:39 PM EDT): Respiratory history has been getting better initially patient was on high flow nasal cannula nonbreathing mask and now on nasal cannula requiring 2 L of oxygen maintaining saturation of 95%. CT chest angio showed no evidence of pulmonary embolism, diffuse patchy opacities in bilateral lungs likely presented pneumonia, pulmonary edema or atelectasis is superimposed on pulmonary fibrosis. - Echo showed decrease in LV function with ejection fraction of 30%, there is global hypokinesia with akinesia of the apex, wall motion based preserved in the basal to mid anterior lateral wall.estimated RVSP of 47 mmHg Procalcitonin 0.55, MRSA negative respiratory viral panel negative Urine output 1000 mL in 24 hour -proBNP I worsened 5002 --> 61,288(05/07/2025) Continue ceftriaxone and doxycycline for aspiration pneumonia( 03/31) Will reduce Solu-Medrol to 40 mg every 24 hours Continue Trelegy, DuoNebs scheduled and as needed Will transition iv lasix to PO lasix 40 mg once a day Will start Jardiance 10 mg once a day and carvedilol 3.125 mg 2 times a day Pulmonology and cardiology is following Outpatient stress test as per cardiology Assessment & Plan (05/09/2025 3:08 PM EDT): Respiratory history has been getting better initially patient was on high flow nasal cannula nonbreathing mask and now on nasal cannula requiring 3 L of oxygen with no saturation of 94%. CT chest angio showed no evidence of pulmonary embolism, diffuse patchy opacities in bilateral lungs likely presented pneumonia, pulmonary edema or atelectasis is superimposed on pulmonary fibrosis. - Echo showed decrease in LV function with ejection fraction of 30%, there is global hypokinesia with akinesia of the apex, wall motion based preserved in the basal to mid anterior lateral wall.estimated RVSP of 47 mmHg Procalcitonin 0.55, MRSA negative respiratory viral panel negative Urine output 1000 mL in 24 hour -proBNP I worsened 5002 --> 61,288(05/07/2025) Continue ceftriaxone and doxycycline for aspiration pneumonia( 6/) Continue Solu-Medrol to 40 mg every 12 hourly Continue Trelegy, DuoNebs scheduled and as needed -Continue IV Lasix twice daily Will start Jardiance 10 mg once a day and carvedilol 3.125 mg 2 times a day Pulmonology and cardiology is following Outpatient stress test as per cardiology Assessment & Plan (05/08/2025 1:48 PM EDT): Respiratory status has been getting better and Patient switched from HFNC to 4 L of oxygen and maintaining saturation of 96% , decreased air entry in both lower lung zones CT chest angio was done which showed no evidence of pulmonary embolism, diffuse patchy opacities in bilateral lungs likely presented pneumonia, pulmonary edema or atelectasis is superimposed on pulmonary fibrosis. - Echo showed decrease in LV function with ejection fraction of 30%, there is global hypokinesia with akinesia of the apex, wall motion based preserved in the basal to mid anterior lateral wall.estimated RVSP of 47 mmHg Procalcitonin 0.55, MRSA negative respiratory viral panel negative Urine output 1000 mL in 24 hour -proBNP I worsened 5002 --> 61,288(05/07/2025) Continue ceftriaxone and doxycycline for aspiration pneumonia( /7) Will decrease Solu-Medrol to 40 mg every 12 hourly Continue Trelegy, DuoNebs scheduled and as needed -Continue IV Lasix twice daily Pulmonology and cardiology is following Assessment & Plan (05/07/2025 6:20 PM EDT): Respiratory status has been getting better and oxygen requirement decreased from 80% to FiO2 of 40% and maintaining oxygen saturation of 96%, decreased air entry in both lower lung zones CT chest angio was done which showed no evidence of pulmonary embolism, diffuse patchy opacities in bilateral lungs likely presented pneumonia, pulmonary edema or atelectasis is superimposed on pulmonary fibrosis. - Echo showed decrease in LV function with ejection fraction of 30%, there is global hypokinesia with akinesia of the apex, wall motion based preserved in the basal to mid anterior lateral wall.estimated RVSP of 47 mmHg Procalcitonin 0.55, MRSA negative respiratory viral panel negative Urine output 900 mL in 24 hours which might be an accurate -proBNP is getting worse from 5002 --> 61,288 Continue ceftriaxone and doxycycline for aspiration pneumonia Continue Solu-Medrol 40 mg every 6 hourly Continue Trelegy, DuoNebs scheduled and as needed -Continue IV Lasix twice daily Pulmonology and cardiology is following Dysphagia 05/07/2025 Assessment & Plan (05/11/2025 1:21 PM EDT): MOLD WASHER evaluated the patient and fees test was done on 05/09/2000 and and recommended dysphagia diet level 6 Assessment & Plan (05/10/2025 12:58 PM EDT): MOLD WASHER evaluated the patient and fees test was done yesterday and recommended dysphagia diet level 6 Assessment & Plan (05/09/2025 3:08 PM EDT): MOLD WASHER evaluated the patient and fees test was done yesterday and recommended dysphagia diet level 6 Assessment & Plan (05/08/2025 4:42 PM EDT): MOLD WASHER reevaluated patient and advise keep NPO and FEES test Addendum : Fees test was done and recommended dysphagia diet level 6 Assessment & Plan (05/07/2025 1:32 PM EDT): MOLD WASHER evaluated the patient .during evaluation, patient showed signs and symptoms of aspiration and desaturated to the high 80s with p.o..MOLD WASHER recommended FEES or MBS . However patient desaturated so we are holding fees and MBS for now. Keep n.p.o. MOLD WASHER reevaluation tomorrow Anxiety and depression 05/07/2025 Assessment & Plan (05/11/2025 1:21 PM EDT): Continue fluoxetine and bupropion Disposition : STR , Auth is pending Assessment & Plan (05/10/2025 12:58 PM EDT): Continue fluoxetine and bupropion Assessment & Plan (05/09/2025 3:08 PM EDT): Continue fluoxetine and bupropion Assessment & Plan (05/08/2025 1:48 PM EDT): Continue to hold fluoxetine and bupropion Assessment & Plan (05/07/2025 1:32 PM EDT): Continue hold fluoxetine and bupropion Acute systolic congestive heart failure 05/06/20 25 Assessment & Plan (05/11/2025 1:21 PM EDT): Respiratory history has been getting better initially patient was on high flow nasal cannula nonbreathing mask and currently on 1.5 L of oxygen and maintaining saturation of 97%.off oxygen patient desaturated to 86% today CT chest angio showed no evidence of pulmonary embolism, diffuse patchy opacities in bilateral lungs likely presented pneumonia, pulmonary edema or atelectasis is superimposed on pulmonary fibrosis. - Echo showed decrease in LV function with ejection fraction of 30%, there is global hypokinesia with akinesia of the apex, wall motion based preserved in the basal to mid anterior lateral wall.estimated RVSP of 47 mmHg Procalcitonin 0.55, MRSA negative respiratory viral panel negative Urine output 1800 mL in 24 hour -proBNP I worsened 5002 --> 61,288(05/07/2025) Completed ceftriaxone and doxycycline for aspiration pneumonia( 03/31) on 05/10/2025 Continue Solu-Medrol 40 mg IV push once a day today and will transition to tapering dose of prednisone from tomorrow Continue Trelegy, DuoNebs scheduled and as needed Continue Jardiance 10 mg once a day and carvedilol 3.125 mg 2 times a day, lasix 40 mg x daily Pulmonology and cardiology is following Outpatient stress test as per cardiology Assessment & Plan (05/10/2025 2:39 PM EDT): Respiratory history has been getting better initially patient was on high flow nasal cannula nonbreathing mask and now on nasal cannula requiring 2 L of oxygen maintaining saturation of 95%. CT chest angio showed no evidence of pulmonary embolism, diffuse patchy opacities in bilateral lungs likely presented pneumonia, pulmonary edema or atelectasis is superimposed on pulmonary fibrosis. - Echo showed decrease in LV function with ejection fraction of 30%, there is global hypokinesia with akinesia of the apex, wall motion based preserved in the basal to mid anterior lateral wall.estimated RVSP of 47 mmHg Procalcitonin 0.55, MRSA negative respiratory viral panel negative Urine output 1000 mL in 24 hour -proBNP I worsened 5002 --> 61,288(05/07/2025) Continue ceftriaxone and doxycycline for aspiration pneumonia( 03/31) Will reduce Solu-Medrol to 40 mg every 24 hours Continue Trelegy, DuoNebs scheduled and as needed Will transition iv lasix to PO lasix 40 mg once a day Will start Jardiance 10 mg once a day and carvedilol 3.125 mg 2 times a day Pulmonology and cardiology is following Outpatient stress test as per cardiology Assessment & Plan (05/09/2025 3:08 PM EDT): Respiratory history has been getting better initially patient was on high flow nasal cannula nonbreathing mask and now on nasal cannula requiring 3 L of oxygen with no saturation of 94%. CT chest angio showed no evidence of pulmonary embolism, diffuse patchy opacities in bilateral lungs likely presented pneumonia, pulmonary edema or atelectasis is superimposed on pulmonary fibrosis. - Echo showed decrease in LV function with ejection fraction of 30%, there is global hypokinesia with akinesia of the apex, wall motion based preserved in the basal to mid anterior lateral wall.estimated RVSP of 47 mmHg Procalcitonin 0.55, MRSA negative respiratory viral panel negative Urine output 1000 mL in 24 hour -proBNP I worsened 5002 --> 61,288(05/07/2025) Continue ceftriaxone and doxycycline for aspiration pneumonia( 03/01) Continue Solu-Medrol to 40 mg every 12 hourly Continue Trelegy, DuoNebs scheduled and as needed -Continue IV Lasix twice daily Will start Jardiance 10 mg once a day and carvedilol 3.125 mg 2 times a day Pulmonology and cardiology is following Outpatient stress test as per cardiology Assessment & Plan (05/08/2025 1:48 PM EDT): Respiratory status has been getting better and Patient switched from HFNC to 4 L of oxygen and maintaining saturation of 96% , decreased air entry in both lower lung zones CT chest angio was done which showed no evidence of pulmonary embolism, diffuse patchy opacities in bilateral lungs likely presented pneumonia, pulmonary edema or atelectasis is superimposed on pulmonary fibrosis. - Echo showed decrease in LV function with ejection fraction of 30%, there is global hypokinesia with akinesia of the apex, wall motion based preserved in the basal to mid anterior lateral wall.estimated RVSP of 47 mmHg Procalcitonin 0.55, MRSA negative respiratory viral panel negative Urine output 1000 mL in 24 hour -proBNP I worsened 5002 --> 61,288(05/07/2025) Continue ceftriaxone and doxycycline for aspiration pneumonia( 01/29) Will decrease Solu-Medrol to 40 mg every 12 hourly Continue Trelegy, DuoNebs scheduled and as needed -Continue IV Lasix twice daily Pulmonology and cardiology is following Assessment & Plan (05/07/2025 6:20 PM EDT): Respiratory status has been getting better and oxygen requirement decreased from 80% to FiO2 of 40% and maintaining oxygen saturation of 96%, decreased air entry in both lower lung zones CT chest angio was done which showed no evidence of pulmonary embolism, diffuse patchy opacities in bilateral lungs likely presented pneumonia, pulmonary edema or atelectasis is superimposed on pulmonary fibrosis. - Echo showed decrease in LV function with ejection fraction of 30%, there is global hypokinesia with akinesia of the apex, wall motion based preserved in the basal to mid anterior lateral wall.estimated RVSP of 47 mmHg Procalcitonin 0.55, MRSA negative respiratory viral panel negative Urine output 900 mL in 24 hours which might be an accurate -proBNP is getting worse from 5002 --> 61,288 Continue ceftriaxone and doxycycline for aspiration pneumonia Continue Solu-Medrol 40 mg every 6 hourly Continue Trelegy, DuoNebs scheduled and as needed -Continue IV Lasix twice daily Pulmonology and cardiology is following Assessment & Plan (05/06/2025 12:22 PM EDT): Continue IV Lasix high flow oxygen to keep saturation above 90% consult cardiology for new findings of cardiomyopathy with ejection fraction of 30% (patient has a history of mild cardiomyopathy with ejection fraction 45 to 50% on last echo available from 2021 and history of LBBB, with last stress test being in June 2022 with no perfusion defect) 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 - Echo showed decrease in LV function with ejection fraction of 30%, there is global hypokinesia with akinesia of the apex, wall motion based preserved in the basal to mid anterior lateral wall.estimated RVSP of 47 mmHg Procalcitonin 0.55, MRSA negative respiratory viral panel negative Urine output 1800 mL in 24 hour -proBNP I worsened 5002 --> 61,288(05/07/2025) Completed ceftriaxone and doxycycline for aspiration pneumonia( 03/31) on 05/10/2025 Continue Solu-Medrol 40 mg IV push once a day today and will transition to tapering dose of prednisone from tomorrow Continue Jacquelin Hobbs scheduled and as needed Continue Jardiance 10 mg once a day and carvedilol 3.125 mg 2 times a day, lasix 40 mg x daily Pulmonology and cardiology is following Outpatient stress test as per cardiology Assessment & Plan (05/10/2025 2:39 PM EDT): Respiratory history has been getting better initially patient was on high flow nasal cannula nonbreathing mask and now on nasal cannula requiring 2 L of oxygen maintaining saturation of 95%. CT chest angio showed no evidence of pulmonary embolism, diffuse patchy opacities in bilateral lungs likely presented pneumonia, pulmonary edema or atelectasis is superimposed on pulmonary fibrosis. - Echo showed decrease in LV function with ejection fraction of 30%, there is global hypokinesia with akinesia of the apex, wall motion based preserved in the basal to mid anterior lateral wall.estimated RVSP of 47 mmHg Procalcitonin 0.55, MRSA negative respiratory viral panel negative Urine output 1000 mL in 24 hour -proBNP I worsened 5002 --> 61,288(05/07/2025) Continue ceftriaxone and doxycycline for aspiration pneumonia( 03/31) Will reduce Solu-Medrol to 40 mg every 24 hours Continue Trelegy, DuoNebs scheduled and as needed Will transition iv lasix to PO lasix 40 mg once a day Will start Jardiance 10 mg once a day and carvedilol 3.125 mg 2 times a day Pulmonology and cardiology is following Outpatient stress test as per cardiology Assessment & Plan (05/09/2025 3:08 PM EDT): Respiratory history has been getting better initially patient was on high flow nasal cannula nonbreathing mask and now on nasal cannula requiring 3 L of oxygen with no saturation of 94%. CT chest angio showed no evidence of pulmonary embolism, diffuse patchy opacities in bilateral lungs likely presented pneumonia, pulmonary edema or atelectasis is superimposed on pulmonary fibrosis. - Echo showed decrease in LV function with ejection fraction of 30%, there is global hypokinesia with akinesia of the apex, wall motion based preserved in the basal to mid anterior lateral wall.estimated RVSP of 47 mmHg Procalcitonin 0.55, MRSA negative respiratory viral panel negative Urine output 1000 mL in 24 hour -proBNP I worsened 5002 --> 61,288(05/07/2025) Continue ceftriaxone and doxycycline for aspiration pneumonia( 03/01) Continue Solu-Medrol to 40 mg every 12 hourly Continue Trelegy, DuoNebs scheduled and as needed -Continue IV Lasix twice daily Will start Jardiance 10 mg once a day and carvedilol 3.125 mg 2 times a day Pulmonology and cardiology is following Outpatient stress test as per cardiology Assessment & Plan (05/08/2025 1:48 PM EDT): Respiratory status has been getting better and Patient switched from HFNC to 4 L of oxygen and maintaining saturation of 96% , decreased air entry in both lower lung zones CT chest angio was done which showed no evidence of pulmonary embolism, diffuse patchy opacities in bilateral lungs likely presented pneumonia, pulmonary edema or atelectasis is superimposed on pulmonary fibrosis. - Echo showed decrease in LV function with ejection fraction of 30%, there is global hypokinesia with akinesia of the apex, wall motion based preserved in the basal to mid anterior lateral wall.estimated RVSP of 47 mmHg Procalcitonin 0.55, MRSA negative respiratory viral panel negative Urine output 1000 mL in 24 hour -proBNP I worsened 5002 --> 61,288(05/07/2025) Continue ceftriaxone and doxycycline for aspiration pneumonia( 5/7) Will decrease Solu-Medrol to 40 mg every 12 hourly Continue Trelegy, DuoNebs scheduled and as needed -Continue IV Lasix twice daily Pulmonology and cardiology is following Assessment & Plan (05/07/2025 6:20 PM EDT): Respiratory status has been getting better and oxygen requirement decreased from 80% to FiO2 of 40% and maintaining oxygen saturation of 96%, decreased air entry in both lower lung zones CT chest angio was done which showed no evidence of pulmonary embolism, diffuse patchy opacities in bilateral lungs likely presented pneumonia, pulmonary edema or atelectasis is superimposed on pulmonary fibrosis. - Echo showed decrease in LV function with ejection fraction of 30%, there is global hypokinesia with akinesia of the apex, wall motion based preserved in the basal to mid anterior lateral wall.estimated RVSP of 47 mmHg Procalcitonin 0.55, MRSA negative respiratory viral panel negative Urine output 900 mL in 24 hours which might be an accurate -proBNP is getting worse from 5002 --> 61,288 Continue ceftriaxone and doxycycline for aspiration pneumonia Continue Solu-Medrol 40 mg every 6 hourly Continue Trelegy, DuoNebs scheduled and as needed -Continue IV Lasix twice daily Pulmonology and cardiology is following Assessment & Plan (05/06/2025 12:22 PM EDT): Continue IV Lasix high flow oxygen to keep saturation above 90% consult cardiology for new findings of cardiomyopathy with ejection fraction of 30% (patient has a history of mild cardiomyopathy with ejection fraction 45 to 50% on last echo available from 2021 and history of LBBB, with last stress test being in June 2022 with no perfusion defect) Aspiration pneumonia 05/06/2025 Assessment & Plan (05/11/2025 1:21 PM EDT): Respiratory history has been getting better initially patient was on high flow nasal cannula nonbreathing mask and currently on 1.5 L of oxygen and maintaining saturation of 97%.off oxygen patient desaturated to 86% today CT chest angio showed no evidence of pulmonary embolism, diffuse patchy opacities in bilateral lungs likely presented pneumonia, pulmonary edema or atelectasis is superimposed on pulmonary fibrosis. - Echo showed decrease in LV function with ejection fraction of 30%, there is global hypokinesia with akinesia of the apex, wall motion based preserved in the basal to mid anterior lateral wall.estimated RVSP of 47 mmHg Procalcitonin 0.55, MRSA negative respiratory viral panel negative Urine output 1800 mL in 24 hour -proBNP I worsened 5002 --> 61,288(05/07/2025) Completed ceftriaxone and doxycycline for aspiration pneumonia( 03/31) on 05/10/2025 Continue Solu-Medrol 40 mg IV push once a day today and will transition to tapering dose of prednisone from tomorrow Continue Trelegy, DuoNebs scheduled and as needed Continue Jardiance 10 mg once a day and carvedilol 3.125 mg 2 times a day, lasix 40 mg x daily Pulmonology and cardiology is following Outpatient stress test as per cardiology Assessment & Plan (05/10/2025 2:39 PM EDT): Respiratory history has been getting better initially patient was on high flow nasal cannula nonbreathing mask and now on nasal cannula requiring 2 L of oxygen maintaining saturation of 95%. CT chest angio showed no evidence of pulmonary embolism, diffuse patchy opacities in bilateral lungs likely presented pneumonia, pulmonary edema or atelectasis is superimposed on pulmonary fibrosis. - Echo showed decrease in LV function with ejection fraction of 30%, there is global hypokinesia with akinesia of the apex, wall motion based preserved in the basal to mid anterior lateral wall.estimated RVSP of 47 mmHg Procalcitonin 0.55, MRSA negative respiratory viral panel negative Urine output 1000 mL in 24 hour -proBNP I worsened 5002 --> 61,288(05/07/2025) Continue ceftriaxone and doxycycline for aspiration pneumonia( 03/31) Will reduce Solu-Medrol to 40 mg every 24 hours Continue Trelegy, DuoNebs scheduled and as needed Will transition iv lasix to PO lasix 40 mg once a day Will start Jardiance 10 mg once a day and carvedilol 3.125 mg 2 times a day Pulmonology and cardiology is following Outpatient stress test as per cardiology Assessment & Plan (05/09/2025 3:08 PM EDT): Respiratory history has been getting better initially patient was on high flow nasal cannula nonbreathing mask and now on nasal cannula requiring 3 L of oxygen with no saturation of 94%. CT chest angio showed no evidence of pulmonary embolism, diffuse patchy opacities in bilateral lungs likely presented pneumonia, pulmonary edema or atelectasis is superimposed on pulmonary fibrosis. - Echo showed decrease in LV function with ejection fraction of 30%, there is global hypokinesia with akinesia of the apex, wall motion based preserved in the basal to mid anterior lateral wall.estimated RVSP of 47 mmHg Procalcitonin 0.55, MRSA negative respiratory viral panel negative Urine output 1000 mL in 24 hour -proBNP I worsened 5002 --> 61,288(05/07/2025) Continue ceftriaxone and doxycycline for aspiration pneumonia( 03/01) Continue Solu-Medrol to 40 mg every 12 hourly Continue Trelegy, DuoNebs scheduled and as needed -Continue IV Lasix twice daily Will start Jardiance 10 mg once a day and carvedilol 3.125 mg 2 times a day Pulmonology and cardiology is following Outpatient stress test as per cardiology Assessment & Plan (05/08/2025 1:48 PM EDT): Respiratory status has been getting better and Patient switched from HFNC to 4 L of oxygen and maintaining saturation of 96% , decreased air entry in both lower lung zones CT chest angio was done which showed no evidence of pulmonary embolism, diffuse patchy opacities in bilateral lungs likely presented pneumonia, pulmonary edema or atelectasis is superimposed on pulmonary fibrosis. - Echo showed decrease in LV function with ejection fraction of 30%, there is global hypokinesia with akinesia of the apex, wall motion based preserved in the basal to mid anterior lateral wall.estimated RVSP of 47 mmHg Procalcitonin 0.55, MRSA negative respiratory viral panel negative Urine output 1000 mL in 24 hour -proBNP I worsened 5002 --> 61,288(05/07/2025) Continue ceftriaxone and doxycycline for aspiration pneumonia( /) Will decrease Solu-Medrol to 40 mg every 12 hourly Continue Trelegy, DuoNebs scheduled and as needed -Continue IV Lasix twice daily Pulmonology and cardiology is following Assessment & Plan (05/07/2025 6:20 PM EDT): Respiratory status has been getting better and oxygen requirement decreased from 80% to FiO2 of 40% and maintaining oxygen saturation of 96%, decreased air entry in both lower lung zones CT chest angio was done which showed no evidence of pulmonary embolism, diffuse patchy opacities in bilateral lungs likely presented pneumonia, pulmonary edema or atelectasis is superimposed on pulmonary fibrosis. - Echo showed decrease in LV function with ejection fraction of 30%, there is global hypokinesia with akinesia of the apex, wall motion based preserved in the basal to mid anterior lateral wall.estimated RVSP of 47 mmHg Procalcitonin 0.55, MRSA negative respiratory viral panel negative Urine output 900 mL in 24 hours which might be an accurate -proBNP is getting worse from 5002 --> 61,288 Continue ceftriaxone and doxycycline for aspiration pneumonia Continue Solu-Medrol 40 mg every 6 hourly Continue Jacquelin Hobbs scheduled and as needed -Continue IV Lasix twice daily Pulmonology and cardiology is following Assessment & Plan (05/06/2025 12:22 PM EDT): Continue IV antibiotics Closed fracture of left proximal humerus 025 Assessment & Plan (05/11/2025 1:21 PM EDT): Status post left reverse total shoulder arthroplasty for left proximal third humeral shaft fracture. Continuing on WB LUE in sling at all times, Orhto is following Pain is better controlled Will discontinue IV Dilaudid and start oxycodone as needed continue doxycycline 100 mg 2 times a day for extended surgical prophylaxis antibiotics Needs to complete 6 weeks course of doxycycline 100 mg twice daily once patient discharge DC planning as per case managemen Assessment & Plan (05/10/2025 12:58 PM EDT): Status post left reverse total shoulder arthroplasty for left proximal third humeral shaft fracture. Continuing on WB LUE in sling at all times, Orhto is following Pain is better controlled Will discontinue IV Dilaudid and start oxycodone as needed continue doxycycline 100 mg 2 times a day for extended surgical prophylaxis antibiotics Needs to complete 6 weeks course of doxycycline 100 mg twice daily once patient discharge DC planning as per case management Assessment & Plan (05/09/2025 3:08 PM EDT): Status post left reverse total shoulder arthroplasty for left proximal third humeral shaft fracture. Continuing on WB LUE in sling at all times, Orhto is following IV Dilaudid as needed for pain continue doxycycline 100 mg 2 times a day for extended surgical prophylaxis antibiotics Needs to complete 6 weeks course of doxycycline 100 mg twice daily once patient discharge DC planning as per case management Assessment & Plan (05/08/2025 1:48 PM EDT): Status post left reverse total shoulder arthroplasty for left proximal third humeral shaft fracture. Continuing on WB LUE in sling at all times, Orhto is following IV Dilaudid as needed for pain continue doxycycline 100 mg 2 times a day for extended surgical prophylaxis antibiotics Needs to complete 6 weeks course of doxycycline 100 mg twice daily once patient discharge DC planning as per case management Assessment & Plan (05/07/2025 6:20 PM EDT): Status post left reverse total shoulder arthroplasty for left proximal third humeral shaft fracture. Continuing on WB LUE in sling at all times, IV Dilaudid as needed for pain continue doxycycline 100 mg 2 times a day for extended surgical prophylaxis antibiotics Needs to complete 6 weeks course of doxycycline 100 mg twice daily once patient Assessment & Plan (05/06/2025 12:22 PM EDT): Status post surgical treatment follow-up with Ortho discharge planning prison facility when able Acute respiratory failure with hypoxia Assessment & Plan (05/11/2025 1:21 PM EDT): Respiratory history has been getting better initially patient was on high flow nasal cannula nonbreathing mask and currently on 1.5 L of oxygen and maintaining saturation of 97%.off oxygen patient desaturated to 86% today CT chest angio showed no evidence of pulmonary embolism, diffuse patchy opacities in bilateral lungs likely presented pneumonia, pulmonary edema or atelectasis is superimposed on pulmonary fibrosis. - Echo showed decrease in LV function with ejection fraction of 30%, there is global hypokinesia with akinesia of the apex, wall motion based preserved in the basal to mid anterior lateral wall.estimated RVSP of 47 mmHg Procalcitonin 0.55, MRSA negative respiratory viral panel negative Urine output 1800 mL in 24 hour -proBNP I worsened 5002 --> 61,288(05/07/2025) Completed ceftriaxone and doxycycline for aspiration pneumonia( 03/31) on 05/10/2025 Continue Solu-Medrol 40 mg IV push once a day today and will transition to tapering dose of prednisone from tomorrow Continue Trelegy, DuoNebs scheduled and as needed Continue Jardiance 10 mg once a day and carvedilol 3.125 mg 2 times a day, lasix 40 mg x daily Pulmonology and cardiology is following Outpatient stress test as per cardiology Assessment & Plan (05/10/2025 2:39 PM EDT): Respiratory history has been getting better initially patient was on high flow nasal cannula nonbreathing mask and now on nasal cannula requiring 2 L of oxygen maintaining saturation of 95%. CT chest angio showed no evidence of pulmonary embolism, diffuse patchy opacities in bilateral lungs likely presented pneumonia, pulmonary edema or atelectasis is superimposed on pulmonary fibrosis. - Echo showed decrease in LV function with ejection fraction of 30%, there is global hypokinesia with akinesia of the apex, wall motion based preserved in the basal to mid anterior lateral wall.estimated RVSP of 47 mmHg Procalcitonin 0.55, MRSA negative respiratory viral panel negative Urine output 1000 mL in 24 hour -proBNP I worsened 5002 --> 61,288(05/07/2025) Continue ceftriaxone and doxycycline for aspiration pneumonia( 03/31) Will reduce Solu-Medrol to 40 mg every 24 hours Continue Trelegy, DuoNebs scheduled and as needed Will transition iv lasix to PO lasix 40 mg once a day Will start Jardiance 10 mg once a day and carvedilol 3.125 mg 2 times a day Pulmonology and cardiology is following Outpatient stress test as per cardiology Assessment & Plan (05/09/2025 3:08 PM EDT): Respiratory history has been getting better initially patient was on high flow nasal cannula nonbreathing mask and now on nasal cannula requiring 3 L of oxygen with no saturation of 94%. CT chest angio showed no evidence of pulmonary embolism, diffuse patchy opacities in bilateral lungs likely presented pneumonia, pulmonary edema or atelectasis is superimposed on pulmonary fibrosis. - Echo showed decrease in LV function with ejection fraction of 30%, there is global hypokinesia with akinesia of the apex, wall motion based preserved in the basal to mid anterior lateral wall.estimated RVSP of 47 mmHg Procalcitonin 0.55, MRSA negative respiratory viral panel negative Urine output 1000 mL in 24 hour -proBNP I worsened 5002 --> 61,288(05/07/2025) Continue ceftriaxone and doxycycline for aspiration pneumonia( 6/) Continue Solu-Medrol to 40 mg every 12 hourly Continue Trelegy, DuoNebs scheduled and as needed -Continue IV Lasix twice daily Will start Jardiance 10 mg once a day and carvedilol 3.125 mg 2 times a day Pulmonology and cardiology is following Outpatient stress test as per cardiology Assessment & Plan (05/08/2025 1:48 PM EDT): Respiratory status has been getting better and Patient switched from HFNC to 4 L of oxygen and maintaining saturation of 96% , decreased air entry in both lower lung zones CT chest angio was done which showed no evidence of pulmonary embolism, diffuse patchy opacities in bilateral lungs likely presented pneumonia, pulmonary edema or atelectasis is superimposed on pulmonary fibrosis. - Echo showed decrease in LV function with ejection fraction of 30%, there is global hypokinesia with akinesia of the apex, wall motion based preserved in the basal to mid anterior lateral wall.estimated RVSP of 47 mmHg Procalcitonin 0.55, MRSA negative respiratory viral panel negative Urine output 1000 mL in 24 hour -proBNP I worsened 5002 --> 61,288(05/07/2025) Continue ceftriaxone and doxycycline for aspiration pneumonia( 5/) Will decrease Solu-Medrol to 40 mg every 12 hourly Continue Trelegy, DuoNebs scheduled and as needed -Continue IV Lasix twice daily Pulmonology and cardiology is following Assessment & Plan (05/07/2025 6:20 PM EDT): Respiratory status has been getting better and oxygen requirement decreased from 80% to FiO2 of 40% and maintaining oxygen saturation of 96%, decreased air entry in both lower lung zones CT chest angio was done which showed no evidence of pulmonary embolism, diffuse patchy opacities in bilateral lungs likely presented pneumonia, pulmonary edema or atelectasis is superimposed on pulmonary fibrosis. - Echo showed decrease in LV function with ejection fraction of 30%, there is global hypokinesia with akinesia of the apex, wall motion based preserved in the basal to mid anterior lateral wall.estimated RVSP of 47 mmHg Procalcitonin 0.55, MRSA negative respiratory viral panel negative Urine output 900 mL in 24 hours which might be an accurate -proBNP is getting worse from 5002 --> 61,288 Continue ceftriaxone and doxycycline for aspiration pneumonia Continue Solu-Medrol 40 mg every 6 hourly Continue Jacquelin Hobbs scheduled and as needed -Continue IV Lasix twice daily Pulmonology and cardiology is following Assessment & Plan (05/06/2025 12:22 PM EDT): Continue IV Lasix high flow oxygen to keep saturation above 90% consult cardiology for new findings of cardiomyopathy with ejection fraction of 30% (patient has a history of mild cardiomyopathy with ejection fraction 45 to 50% on last echo available from 2021 and history of LBBB, with last stress test being in June 2022 with no perfusion defect) Assessment & Plan (05/05/2025 11:18 AM EDT): High flow oxygen IV Lasix IV Solu-Medrol IV antibiotics for pneumonia may require intubation Assessment & Plan (05/04/2025 11:06 AM EDT): Continue high flow oxygen keep saturation above 90% transferred to progressive care unit for closer monitoring continue telemetry pulse oximetry. Lasix 20 x 1 IV follow-up echo result Will start on DVT prophylaxis with subcu Lovenox CT angiogram negative. Glaucoma 05/02/2025 Assessment & Plan (05/06/2025 12:22 PM EDT): Timolol eyedrops Assessment & Plan (05/05/2025 11:18 AM EDT): Timolol eyedrops Assessment & Plan (05/04/2025 11:06 AM EDT): Stable Severe protein-calorie malnu trition greater than 10% weight loss in 6 months, meeting less than 75% needs for over 3 months, moderate orbital/triceps fat loss and moderate pectoralis/trapezous/interos 05/02/2025 05/02/2025 Assessment & Plan (05/11/2025 1:21 PM EDT): On dysphagia diet, [employer] is following Assessment & Plan (05/10/2025 12:58 PM EDT): On dysphagia diet, [employer] is following Assessment & Plan (05/09/2025 3:08 PM EDT): On dysphagia diet, [employer] is following Assessment & Plan (05/08/2025 1:48 PM EDT): NPO status, M[employer] W[employer]ER is following Assessment & Plan (05/07/2025 1:32 PM EDT): NPO status, M[employer] WASHER is following Assessment & Plan (05/06/2025 12:22 PM EDT): Currently n.p.o. pending speech evaluation Assessment & Plan (05/05/2025 11:18 AM EDT): N.p.o. risk for intubation S/P reverse total shoulder arthroplasty, left Assessment & Plan (05/11/2025 1:21 PM EDT): Status post left reverse total shoulder arthroplasty for left proximal third humeral shaft fracture. Continuing on WB LUE in sling at all times, Orhto is following Pain is better controlled Will discontinue IV Dilaudid and start oxycodone as needed continue doxycycline 100 mg 2 times a day for extended surgical prophylaxis antibiotics Needs to complete 6 weeks course of doxycycline 100 mg twice daily once patient discharge DC planning as per case managemen Assessment & Plan (05/10/2025 12:58 PM EDT): Status post left reverse total shoulder arthroplasty for left proximal third humeral shaft fracture. Continuing on WB LUE in sling at all times, Orhto is following Pain is better controlled Will discontinue IV Dilaudid and start oxycodone as needed continue doxycycline 100 mg 2 times a day for extended surgical prophylaxis antibiotics Needs to complete 6 weeks course of doxycycline 100 mg twice daily once patient discharge DC planning as per case management Assessment & Plan (05/09/2025 3:08 PM EDT): Status post left reverse total shoulder arthroplasty for left proximal third humeral shaft fracture. Continuing on WB LUE in sling at all times, Orhto is following IV Dilaudid as needed for pain continue doxycycline 100 mg 2 times a day for extended surgical prophylaxis antibiotics Needs to complete 6 weeks course of doxycycline 100 mg twice daily once patient discharge DC planning as per case management Assessment & Plan (05/08/2025 1:48 PM EDT): Status post left reverse total shoulder arthroplasty for left proximal third humeral shaft fracture. Continuing on WB LUE in sling at all times, Orhto is following IV Dilaudid as needed for pain continue doxycycline 100 mg 2 times a day for extended surgical prophylaxis antibiotics Needs to complete 6 weeks course of doxycycline 100 mg twice daily once patient discharge DC planning as per case management Assessment & Plan (05/07/2025 6:20 PM EDT): Status post left reverse total shoulder arthroplasty for left proximal third humeral shaft fracture. Continuing on WB LUE in sling at all times, IV Dilaudid as needed for pain continue doxycycline 100 mg 2 times a day for extended surgical prophylaxis antibiotics Needs to complete 6 weeks course of doxycycline 100 mg twice daily once patient Assessment & Plan (05/06/2025 12:22 PM EDT): Cleared by Ortho for discharge when medically stable to go to a prison facility with outpatient follow-up with orthopedic surgery in 2 weeks Assessment & Plan (05/05/2025 11:18 AM EDT): Orthopedic surgery follow-up Assessment & Plan (05/04/2025 11:06 AM EDT): As per Ortho Assessment & Plan (05/03/2025 12:38 PM EDT): Management as per orthopedic surgery patient medically stable Preoperative examination 04/24/2025 Assessment & Plan (04/24/2025 7:23 AM EDT): Patient will follow-up postoperatively for continued chronic disease management with their primary care and appropriate specialists. 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 Continuing on WB LUE in sling at all times, Orhto is following Pain is better controlled Will discontinue IV Dilaudid and start oxycodone as needed continue doxycycline 100 mg 2 times a day for extended surgical prophylaxis antibiotics Needs to complete 6 weeks course of doxycycline 100 mg twice daily once patient discharge DC planning as per case managemen Assessment & Plan (05/10/2025 12:58 PM EDT): Status post left reverse total shoulder arthroplasty for left proximal third humeral shaft fracture. Continuing on WB LUE in sling at all times, Orhto is following Pain is better controlled Will discontinue IV Dilaudid and start oxycodone as needed continue doxycycline 100 mg 2 times a day for extended surgical prophylaxis antibiotics Needs to complete 6 weeks course of doxycycline 100 mg twice daily once patient discharge DC planning as per case management Assessment & Plan (05/09/2025 3:08 PM EDT): Status post left reverse total shoulder arthroplasty for left proximal third humeral shaft fracture. Continuing on WB LUE in sling at all times, Orhto is following IV Dilaudid as needed for pain continue doxycycline 100 mg 2 times a day for extended surgical prophylaxis antibiotics Needs to complete 6 weeks course of doxycycline 100 mg twice daily once patient discharge DC planning as per case management Assessment & Plan (05/08/2025 1:48 PM EDT): Status post left reverse total shoulder arthroplasty for left proximal third humeral shaft fracture. Continuing on WB LUE in sling at all times, Orhto is following IV Dilaudid as needed for pain continue doxycycline 100 mg 2 times a day for extended surgical prophylaxis antibiotics Needs to complete 6 weeks course of doxycycline 100 mg twice daily once patient discharge DC planning as per case management Assessment & Plan (05/07/2025 6:20 PM EDT): Status post left reverse total shoulder arthroplasty for left proximal third humeral shaft fracture. Continuing on WB LUE in sling at all times, IV Dilaudid as needed for pain continue doxycycline 100 mg 2 times a day for extended surgical prophylaxis antibiotics Needs to complete 6 weeks course of doxycycline 100 mg twice daily once patient Assessment & Plan (05/06/2025 12:22 PM EDT): Continue to hold on antihypertensive due to soft blood pressure in order to allow for diuresis Assessment & Plan (05/05/2025 11:18 AM EDT): Continue to hold on antihypertensive to allow diuresis Assessment & Plan (05/04/2025 11:06 AM EDT): Hold on antihypertensives due to borderline hypotension in order to allow for diuresis Assessment & Plan (05/03/2025 12:38 PM EDT): Hold on HCTZ Assessment & Plan (04/24/2025 7:24 AM EDT): Seeking definitive management of left shoulder pain. Discussed the perioperative process, medication changes, and NPO status. Lung nodules 04/24/2025 Assessment & Plan (04/24/2025 7:29 AM EDT): Lung nodules, LLL 7mm. Last chest CT 12/10/24. Follows with [facility] [place], Dr. Maribell Fischer. Pulmonary hypertension 11/01/2024 Requires supplemental oxygen 11/01/2024 Current smoker 08/07/2024 Assessment & Plan (04/24/2025 8:08 AM EDT): Smokes 1 ppd. 60 pack year history. No interest in quitting. Discussed smoking cessation with patient at least 7 days prior to surgery date. Discussed risks of smoking including, but not limited to, delayed wound healing and increased risk of infection. Hypothyroidism 03/01/2023 Assessment & Plan (05/11/2025 1:21 PM EDT): Continue levothyroxine Assessment & Plan (05/10/2025 12:58 PM EDT): Continue levothyroxine Assessment & Plan (05/09/2025 3:08 PM EDT): Continue levothyroxine Assessment & Plan (05/08/2025 1:48 PM EDT): Continue hold levothyroxine Assessment & Plan (05/07/2025 1:32 PM EDT): Continue hold levothyroxine Assessment & Plan (05/06/2025 12:22 PM EDT): Continue Synthroid if does not pass swallow evaluation will change to IV Assessment & Plan (05/05/2025 11:18 AM EDT): Levothyroid Assessment & Plan (05/04/2025 11:06 AM EDT): Continue Synthroid Assessment & Plan (05/03/2025 12:38 PM EDT): Levothyroxine 50 mcg daily Assessment & Plan (04/24/2025 7:25 AM EDT): Compliant with thyroid medication. Continue current medication regimen as prescribed. Patient to follow up with PCP or customer support analyst for continued management of hypothyroidism as previously directed. Mixed stress and urge urinary incontinence 03/01 Chronic obstructive pulmonar y disease with acute exacerbation 07/27/2022 Assessment & Plan (05/11/2025 1:21 PM EDT): Respiratory history has been getting better initially patient was on high flow nasal cannula nonbreathing mask and currently on 1.5 L of oxygen and maintaining saturation of 97%.off oxygen patient desaturated to 86% today CT chest angio showed no evidence of pulmonary embolism, diffuse patchy opacities in bilateral lungs likely presented pneumonia, pulmonary edema or atelectasis is superimposed on pulmonary fibrosis. - Echo showed decrease in LV function with ejection fraction of 30%, there is global hypokinesia with akinesia of the apex, wall motion based preserved in the basal to mid anterior lateral wall.estimated RVSP of 47 mmHg Procalcitonin 0.55, MRSA negative respiratory viral panel negative Urine output 1800 mL in 24 hour -proBNP I worsened 5002 --> 61,288(05/07/2025) Completed ceftriaxone and doxycycline for aspiration pneumonia( 03/31) on 05/10/2025 Continue Solu-Medrol 40 mg IV push once a day today and will transition to tapering dose of prednisone from tomorrow Continue Trelegy, DuoNebs scheduled and as needed Continue Jardiance 10 mg once a day and carvedilol 3.125 mg 2 times a day, lasix 40 mg x daily Pulmonology and cardiology is following Outpatient stress test as per cardiology Assessment & Plan (05/10/2025 2:39 PM EDT): Respiratory history has been getting better initially patient was on high flow nasal cannula nonbreathing mask and now on nasal cannula requiring 2 L of oxygen maintaining saturation of 95%. CT chest angio showed no evidence of pulmonary embolism, diffuse patchy opacities in bilateral lungs likely presented pneumonia, pulmonary edema or atelectasis is superimposed on pulmonary fibrosis. - Echo showed decrease in LV function with ejection fraction of 30%, there is global hypokinesia with akinesia of the apex, wall motion based preserved in the basal to mid anterior lateral wall.estimated RVSP of 47 mmHg Procalcitonin 0.55, MRSA negative respiratory viral panel negative Urine output 1000 mL in 24 hour -proBNP I worsened 5002 --> 61,288(05/07/2025) Continue ceftriaxone and doxycycline for aspiration pneumonia( 03/31) Will reduce Solu-Medrol to 40 mg every 24 hours Continue Trelegy, DuoNebs scheduled and as needed Will transition iv lasix to PO lasix 40 mg once a day Will start Jardiance 10 mg once a day and carvedilol 3.125 mg 2 times a day Pulmonology and cardiology is following Outpatient stress test as per cardiology Assessment & Plan (05/09/2025 3:08 PM EDT): Respiratory history has been getting better initially patient was on high flow nasal cannula nonbreathing mask and now on nasal cannula requiring 3 L of oxygen with no saturation of 94%. CT chest angio showed no evidence of pulmonary embolism, diffuse patchy opacities in bilateral lungs likely presented pneumonia, pulmonary edema or atelectasis is superimposed on pulmonary fibrosis. - Echo showed decrease in LV function with ejection fraction of 30%, there is global hypokinesia with akinesia of the apex, wall motion based preserved in the basal to mid anterior lateral wall.estimated RVSP of 47 mmHg Procalcitonin 0.55, MRSA negative respiratory viral panel negative Urine output 1000 mL in 24 hour -proBNP I worsened 5002 --> 61,288(05/07/2025) Continue ceftriaxone and doxycycline for aspiration pneumonia( 03/01) Continue Solu-Medrol to 40 mg every 12 hourly Continue Trelegy, DuoNebs scheduled and as needed -Continue IV Lasix twice daily Will start Jardiance 10 mg once a day and carvedilol 3.125 mg 2 times a day Pulmonology and cardiology is following Outpatient stress test as per cardiology Assessment & Plan (05/08/2025 1:48 PM EDT): Respiratory status has been getting better and Patient switched from HFNC to 4 L of oxygen and maintaining saturation of 96% , decreased air entry in both lower lung zones CT chest angio was done which showed no evidence of pulmonary embolism, diffuse patchy opacities in bilateral lungs likely presented pneumonia, pulmonary edema or atelectasis is superimposed on pulmonary fibrosis. - Echo showed decrease in LV function with ejection fraction of 30%, there is global hypokinesia with akinesia of the apex, wall motion based preserved in the basal to mid anterior lateral wall.estimated RVSP of 47 mmHg Procalcitonin 0.55, MRSA negative respiratory viral panel negative Urine output 1000 mL in 24 hour -proBNP I worsened 5002 --> 61,288(05/07/2025) Continue ceftriaxone and doxycycline for aspiration pneumonia( 01/29) Will decrease Solu-Medrol to 40 mg every 12 hourly Continue Trelegy, DuoNebs scheduled and as needed -Continue IV Lasix twice daily Pulmonology and cardiology is following Assessment & Plan (05/07/2025 6:20 PM EDT): Respiratory status has been getting better and oxygen requirement decreased from 80% to FiO2 of 40% and maintaining oxygen saturation of 96%, decreased air entry in both lower lung zones CT chest angio was done which showed no evidence of pulmonary embolism, diffuse patchy opacities in bilateral lungs likely presented pneumonia, pulmonary edema or atelectasis is superimposed on pulmonary fibrosis. - Echo showed decrease in LV function with ejection fraction of 30%, there is global hypokinesia with akinesia of the apex, wall motion based preserved in the basal to mid anterior lateral wall.estimated RVSP of 47 mmHg Procalcitonin 0.55, MRSA negative respiratory viral panel negative Urine output 900 mL in 24 hours which might be an accurate -proBNP is getting worse from 5002 --> 61,288 Continue ceftriaxone and doxycycline for aspiration pneumonia Continue Solu-Medrol 40 mg every 6 hourly Continue Jacquelin Hobbs scheduled and as needed -Continue IV Lasix twice daily Pulmonology and cardiology is following Assessment & Plan (05/06/2025 12:22 PM EDT): IV steroids, bronchodilators scheduled and as needed pulmonary follow-up Assessment & Plan (05/05/2025 11:18 AM EDT): Start on high-dose IV steroids Assessment & Plan (05/04/2025 11:06 AM EDT): Scheduled and as needed bronchodilators Spiriva will discuss with pulmonary if patient will benefit from steroids Assessment & Plan (05/03/2025 12:38 PM EDT): Continue Breo Ellipta Assessment & Plan (04/24/2025 7:26 AM EDT): Continue inhalers without interruption. Denies any recent asthma exacerbations and/or hospitalizations. Lungs are CTA today with no obvious increased WOB. Follows with Grain Inspector. Depression 07/27/2022 Assessment & Plan (05/05/2025 11:18 AM EDT): Home meds Assessment & Plan (05/04/2025 11:06 AM EDT): Stable Assessment & Plan (05/03/2025 12:38 PM EDT): Continue home meds Fibrosis of lung 07/27/2022 Assessment & Plan (04/24/2025 8:01 AM EDT): Follows with dealer card room. Has chronic AHWLEY. No use of supplemental oxygen. SpO2 97% on room air. In process of obtaining last echo. Cardiomyopathy 03/16/2022 Overview (04/24/2025): Last Assessment & Plan: Probably from left bundle branch block. Left ventricular systolic function was mildly reduced. I will discontinue hydrochlorothiazide and amlodipine. We will start low-dose losartan. Would like to arrange stress test. Assessment & Plan (04/24/2025 8:08 AM EDT): Follows with utility tech regularly. Her last echocardiogram 07/26/2021, EF of 55 to 55%, grade 2 diastolic heart dysfunction, moderate TR, and elevation PASP. Requested last echo. Left bundle branch block (LBBB) 10/05/2020 Overview (04/24/2025): Last Assessment & Plan: Most likely from conduction system degenerative disorder. Assessment & Plan (04/24/2025 8:01 AM EDT): Chronic. Follows with cards. Benign hypertension 01/30/2018 Overview (04/24/2025): Last Assessment & Plan: Overall well controlled. Assessment & Plan (05/11/2025 1:21 PM EDT): Blood pressure is stable so far Continue losartan 25 mg once a day , carvedilol 3.125 mg 2 times a day Continue to hold hydrochlorothiazide Hydralazine as needed Assessment & Plan (05/10/2025 2:40 PM EDT): Blood pressure is stable so far Continue losartan 25 mg once a day , carvedilol 3.125 mg 2 times a day Continue to hold hydrochlorothiazide Hydralazine as needed Assessment & Plan (05/09/2025 3:08 PM EDT): Blood pressure is stable so far Continue losartan 25 mg once a day Will start carvedilol 3.125 mg 2 times a day Continue to hold hydrochlorothiazide Hydralazine as needed Assessment & Plan (05/08/2025 1:48 PM EDT): Blood pressure is stable so far Continue to hold losartan, hydrochlorothiazide in the setting of n.p.o. status, monitor blood pressure closely Hydralazine as needed Assessment & Plan (05/07/2025 1:32 PM EDT): Blood pressure is stable so far Continue to hold losartan, hydrochlorothiazide in the setting of n.p.o. status, monitor blood pressure closely Hydralazine as needed Assessment & Plan (05/06/2025 12:22 PM EDT): Continue to hold on antihypertensive due to soft blood pressure in order to allow for diuresis Assessment & Plan (05/05/2025 11:18 AM EDT): Continue to hold on antihypertensive to allow diuresis Assessment & Plan (05/04/2025 11:06 AM EDT): Hold on antihypertensives due to borderline hypotension in order to allow for diuresis Assessment & Plan (05/03/2025 12:38 PM EDT): Hold on HCTZ Assessment & Plan (04/24/2025 8:04 AM EDT): Well-controlled by lifestyle and medication. Continue current medication regimen as prescribed. Continue plan as previously directed by your provider. Hyperlipidemia 01/30/2018 Overview (04/24/2025): Last Assessment & Plan: Has resumed statin. We will repeat another lipid profile in a couple of months. Suggest her to take coenzyme Q 10. Assessment & Plan (04/24/2025 8:06 AM EDT): Diet controlled. Component Ref Range & Units 7 mo ago Cholesterol 0 - 200 mg/dL 182 Triglycerides 0 - 150 mg/dL 113 HDL >=40 mg/dL 64 LDL Cholesterol, Calculated 0 - 100 mg/dL 95 VLDL mg/dL 22.6 Non HDL Chol. (LDL+VLDL) <145 mg/dL 118 Insomnia 01/30/2018 Assessment & Plan (05/04/2025 11:06 AM EDT): Stable Osteoporosis 07/04/2016 Assessment & Plan (05/04/2025 11:06 AM EDT): Stable Chronic constipation 01/04/2016 Assessment & Plan (05/11/2025 1:21 PM EDT): Continue bowel regimen Assessment & Plan (05/10/2025 12:58 PM EDT): Continue bowel regimen Assessment & Plan (05/09/2025 3:08 PM EDT): Continue bowel regimen Assessment & Plan (05/08/2025 1:48 PM EDT): On bowel regimen on hold because of n.p.o. status Assessment & Plan (05/07/2025 1:32 PM EDT): On bowel regimen on hold because of n.p.o. status Assessment & Plan (05/06/2025 12:22 PM EDT): Bowel regimen Assessment & Plan (05/05/2025 11:18 AM EDT): Bowel regimen Assessment & Plan (05/04/2025 11:06 AM EDT): Bowel regimen Assessment & Plan (05/03/2025 12:38 PM EDT): Bowel regimen as ordered Assessment & Plan (04/24/2025 7:25 AM EDT): Patient states that her bowels have been regular. She will discuss postop constipation prevention upon discharge with her surgeon. Social History Tobacco Use Types Packs/Day Years Used Date Smoking Tobacco: Every Day Cigarettes Smokeless Tobacco: Never Alcohol Use Standard Drinks/Week Comments Yes 7 (1 standard drink = 0.6 oz pur e alcohol) [facility] Utilities Answer Date Recorded In the past 12 months has th e 115 network disks, gas, oil, or water [employer] threatened to shut off services in your home? No 05/12/2025 AUDIT-C Answer Date Recorded Q1: How often do you have a drink containing alcohol? 4 or more times a week 05/01/2025 Q2: How many drinks containi ng alcohol do you have on a typical day when you are drinking? 1 or 2 Q3: How often do you have si x or more drinks on one occasion? Less than monthly 05/01/2025 Overall Financial Resource Strain (CARDIA) Answe r Date Recorded How hard is it for you to pa y for the very basics like food, housing, medical care, and heating? Not very hard 05/02/2025 Hunger Vital Sign Answer Date Recorded Within the past 12 months, y ou worried that your food would run out before you got the money to buy more. Never true 05/12/20 25 Within the past 12 months, t he food you bought just didn't last and you didn't have money to get more. Never true 05/12/2025 PRAPARE - Transportation Answer Date Re corded In the past 12 months, has l ack of transportation kept you from medical appointments or from getting medications? No 04/25 In the past 12 months, has l ack of transportation kept you from meetings, work, or from getting things needed for daily living? No 05/12/2025 Housing Stability Vital Sign Answer Camacho e Recorded In the last 12 months, was t here a time when you were not able to pay the mortgage or rent on time? No 05/12/2025 In the past 12 months, how m any times have you moved where you were living? 0 05/12/2025 At any time in the past 12 m [facility], were you homeless or living in a half-way (including now)? No 05/12/2025 Comments No Sex and Gender Information Value Date Recorded Sex Assigned at Female 04/01/2025 12:05 PM EDT Legal Sex Female 11:32 AM EDT Gender Identity Female 04/01/2025 12:05 PM EDT Sexual Orientation Heterosexual (straight) 04/01 12:05 PM EDT Last Filed Vital Signs Vital Sign Reading Time Taken Comments Blood Pressure 113/55 05/12/2025 5:39 PM EDT Pulse 71 05/12/2025 5:39 PM EDT Temperature 35.8 C (96.4 F) 05/12/2025 2:25 PM EDT Respiratory Rate 18 05/12/2025 2:25 PM EDT Oxygen Saturation 94% 05/12/2025 2:25 PM EDT Inhaled Oxygen Concentration - - Weight 71.6 kg (157 lb 13.6 oz) 05/04/2025 2:00 PM EDT Height 162.6 cm (5' 4 ) 05/04/2025 2:00 PM EDT Body Mass Index 27.09 05/04/2025 2:00 PM EDT Plan of Treatment Health Maintenance Due Date Last Done Comments Advance Care Planning 1945 Hepatitis C Virus Screening 1945 DTaP/Tdap/Td Vaccines (1 - Tdap) 1965 Pneumococcal Vaccines 50+ (1 of 2 - PCV) 1965 Zoster (Shingles) Vaccine (1 of 2) 1996 DXA Bone Density (Females,Ages 65 and older) 12/17/2011 RSV Vaccine 50 years and older and Patients (1 - 1-dose 75+ series) 2021 Influenza Vaccine 04/25/2025 07/30/2019, , 06/15/2012, Additional history exists COVID-19 Vaccine (2 - season) 2025 01/17/2022 Hepatitis B Vaccines Aged Out No long er eligible based on patient's age to complete this topic Medical Devices Implanted Type Area Incident Analyst Device Identifier Shelf Expiration Date Model / Serial / Lot 6192-1-001 Cement Bone Smpx P Speedset Radopq Sterl - [id number] Implanted:Qty : 1 on 05/01/2025 by Glenys Hernandez MD at [facility] Cement Left: Shoulder [employer] JACLYN [id number] 07/25/2026 6192-1-0 01 / / [id number] Cement Bone Smpx P Speedset Radopq Sterl - [id number] Implanted:Qty : 1 on 05/01/2025 by Glenys Hernandez MD at [facility] Cement Left: Shoulder [employer] JACLYN [id number] 07/25/2026 6192--0 01 / / [id number] Insert Humeral 33mm Univers Revers +6mm Shldr Linr Cnstrn - [id number] Implanted:Qty : 1 on 05/01/2025 by Glenys Hernandez MD at [facility] Joint Prosthesis Left: Shoulder [employer] [id number] 05/25/2029 AR-9503X S-06C / / [id number] Component Glenoid 33mm 24mm +4 Lateralize Glenosphere Taper - [id number] Implanted:Qty : 1 on 05/01/2025 by Glenys Hernandez MD at [facility] Joint Prosthesis Left: Shoulder [employer] [id number] 12/23/2029 AR-9564- 2433-LAT / / [id number] Ar-9561-25s Screw Baseplate 25mm Central Mdlr Sterl - [id number] Implanted:Qty : 1 on 05/01/2025 by Glenys Hernandez MD at [facility] Joint Prosthesis Left: Shoulder [employer] [id number] 10/25/2029 AR-9561- 25S / / [id number] Baseplate Glenoid 24mm Arthx +2mm Shldr Mdlr Lateralize - [id number] Implanted:Qty : 1 on 05/01/2025 by Glenys Hernandez MD at [facility] Joint Prosthesis Left: Shoulder [employer] [id number] 07/25/2029 AR-9560- 24-2 / / [id number] c Cup Humeral 33mm Univers Revers Neutral Suture - [id number] Implanted:Qty : 1 on 05/01/2025 by Glenys Hernandez MD at [facility] Joint Prosthesis Left: Shoulder [employer] [id number] 09/24/2028 AR-9502F -33CPC / / [id number] Ar-9501-06p Stem Humeral Arthx Univers Revers 6 Shldr Sterl - [id number] Implanted:Qty : 1 on 05/01/2025 by Glenys Hernandez MD at [facility] Joint Prosthesis Left: Shoulder [employer] [id number] 04/24/2028 AR-9501- 06P / / [id number] Ar-9563-20 Screw Bone Glenoid Perph Univers Revers 20mm 5.5mm Lock - [id number] Implanted:Qty : 1 on 05/01/2025 by Glenys Hernandez MD at [facility] Screw Left: Shoulder [employer] [id number] 08/24/2029 AR-9563- 20 / / [id number] Ar-9563-16 Screw Bone Glenoid Perph Univers Revers 16mm 5.5mm Lock - [id number] Implanted:Qty : 1 on 05/01/2025 by Glenys Hernandez MD at [facility] Screw Left: Shoulder [employer] [id number] 10/25/2029 AR-9563- 16 / / [id number] Ar-9563-36 Screw Bone Univers Revers L36 Mm Od5.5 Mm Glenoid Peripheral - [id number] Implanted:Qty : 1 on 05/01/2025 by Glenys Hernandez MD at [facility] Screw Left: Shoulder [employer] [id number] 01/22/2029 AR-9563- 36 / / [id number] Ar-9563-32 Screw Bone Glenoid Perph Univers Revers 32mm 5.5mm Lock - [id number] Implanted:Qty : 1 on 05/01/2025 by Glenys Hernandez MD at [facility] Screw Left: Shoulder [employer] [id number] 08/24/2029 MN-9563- 32 / / [id number] Insurance [employer]ED MEDICARE [facility] Advance Directives * Full Code (Latest Code Status on File) Date Activated Date Inactivated Comments 05/01/2025 6:51 PM Care Teams Experimental [employer] Relationship Specialty Start Date End Date Danae Sanchez MD [address] [facility] [address] [place] [address] PCP - General 04/01/25
--- OUTSIDE RECORDS SUMMARY | 2025-08-15 08:52 | XMS_ITS ---
Author Name [facility] Organization Unknown Results Test Name/Text Value Interpretation Date Range Source TSH 7.48 uIU/mL Above high normal 06/23/2025 0.35 - 5. 5 [facility] BICARBONATE 32.0 mmol/L 06/23/2025 24 - 32 [facility] GLOBULIN 2.5 g/dL 06/23/2025 2.3 - 4.5 [facility] SGOT 28.0 Units/L 06/23/2025 14 - 36 [facility] ALKALINE PHOSPHATASE 102.0 Units/L 06/23/2025 40 - 129 [facility] ANION GAP 8.0 Below low normal 06/23/2025 10 - 25 [facility] SGPT 30.0 Units/L 06/23/2025 - 35 [facility] GFR,CALCULATED 51.0 mL/min/1.73m2 06/23/2025 39 - [facility] TOTAL PROTEIN 4.7 g/dL Below low normal 06/23/2025 6.4 - 8. 3 [facility] BUN 20.0 mg/dL 06/23/2025 8 - 23 [facility] SODIUM 134.0 mmol/L Below low normal 06/23/2025 135 - 145 [facility] ALBUMIN 2.2 g/dL Below low normal 06/23/2025 3.5 - 5 CT [facility] BUN/CREA RATIO 18.18 Ratio 06/23/2025 CT [facility] POTASSIUM 3.5 mmol/L 06/23/2025 3.5 - 5.1 [facility] BILIRUBIN, TOTAL 0.4 mg/dL 06/23/2025 0.2 - 1.3 CT [facility] CHLORIDE 98.0 mmol/L 06/23/2025 98 - 107 [facility] A:G RATIO 0.88 Ratio Below low normal 06/23/2025 0.91 - 1.95 [facility] CALCIUM 8.5 mg/dL 06/23/2025 8.4 - 10.2 [facility] CREATININE 1.1 mg/dL 06/23/2025 0.4 - 1.1 [facility] GLUCOSE, FASTING 55.0 mg/dL Below low normal 06/23/2025 70 - [address] [facility] [address] 290.0 K/uL 06/23/2025 150 - 450 [facility] RDWS 55.8 fL Above high normal 06/23/2025 41 - 51 [facility] MCHC 30.7 g/dL Below low normal 06/23/2025 32 - 36 CT [facility] MCH 28.5 pg 06/23/2025 27 - 31 [facility] HEMATOCRIT 30.0 % Below low normal 06/23/2025 38 - 47 [facility] RDWC 16.5 % Above high normal 06/23/2025 11 - 16 [facility] MCV 92.9 fL 06/23/2025 80 - 96 [facility] RBC COUNT 3.23 M/uL Below low normal 06/23/2025 4.2 - 5.4 CT [facility] HEMOGLOBIN 9.2 g/dL Below low normal 06/23/2025 12 - 16 [facility] WBC COUNT 12.85 K/uL Above high normal 06/23/2025 4.2 - 10 [facility] MPV 11.1 fL 06/23/2025 8 - 13 [facility] HEMOGLOBIN 9.4 g/dL Below low normal 05/28/2025 12 - 16 [facility] MPV 12.0 fL 05/28/2025 8 - 13 [facility] MCHC 30.8 g/dL Below low normal 05/28/2025 32 - 36 CT [facility] MCV 96.2 fL Above high normal 05/28/2025 80 - 96 [facility] MCH 29.7 pg 05/28/2025 27 - 31 [facility] WBC COUNT 9.43 K/uL 05/28/2025 4.2 - [address] [facility] [address] 173.0 K/uL 05/28/2025 150 - 450 [facility] RBC COUNT 3.17 M/uL Below low normal 05/28/2025 4.2 - 5.4 CT [facility] RDWS 55.7 fL Above high normal 05/28/2025 41 - 51 [facility] HEMATOCRIT 30.5 % Below low normal 05/28/2025 38 - 47 [facility] RDWC 15.8 % 05/28/2025 11 - 16 [facility] SODIUM 137.0 mmol/L 05/28/2025 135 - 145 [facility] CHLORIDE 99.0 mmol/L 05/28/2025 98 - 107 [facility] GLUCOSE, RANDOM 56.0 mg/dL Below low normal 05/28/2025 65 - 130 [facility] BUN 43.0 mg/dL Above high normal 05/28/2025 8 - 23 [facility] GFR,CALCULATED 31.0 mL/min/1.73m2 Below low normal 05/28/2025 39 - [facility] BUN/CREA RATIO 25.29 Ratio 05/28/2025 CT [facility] ANION GAP 9.0 Below low normal 05/28/2025 10 - 25 CT [facility] BICARBONATE 33.0 mmol/L Above high normal 05/28/2025 24 - 32 [facility] CREATININE 1.7 mg/dL Above high normal 05/28/2025 0.4 - 1.1 [facility] POTASSIUM 4.1 mmol/L 05/28/2025 3.5 - 5.1 [facility] CALCIUM 8.8 mg/dL 05/28/2025 8.4 - 10.2 [facility] CREATININE 1.1 mg/dL 05/14/2025 0.4 - 1.1 [facility] GLUCOSE, RANDOM 85.0 mg/dL 05/14/2025 65 - 130 [facility] CALCIUM 8.0 mg/dL Below low normal 05/14/2025 8.4 - 10.2 [facility] TOTAL PROTEIN 4.3 g/dL Below low normal 05/14/2025 6.4 - 8. 3 [facility] GFR,CALCULATED 51.0 mL/min/1.73m2 05/14/2025 39 - [facility] GLOBULIN 2.0 g/dL Below low normal 05/14/2025 2.3 - 4.5 CT [facility] BILIRUBIN, TOTAL 0.5 mg/dL 05/14/2025 0.2 - 1.3 CT [facility] ALBUMIN 2.3 g/dL Below low normal 05/14/2025 3.5 - 5 CT [facility] SODIUM 132.0 mmol/L Below low normal 05/14/2025 135 - 145 [facility] SGOT 28.0 Units/L 05/14/2025 14 - 36 [facility] BUN/CREA RATIO 41.82 Ratio 05/14/2025 CT [facility] ALKALINE PHOSPHATASE 72.0 Units/L 05/14/2025 40 - 129 [facility] ANION GAP 7.0 Below low normal 05/14/2025 10 - 25 CT [facility] BUN 46.0 mg/dL Above high normal 05/14/2025 8 - 23 [facility] CHLORIDE 94.0 mmol/L Below low normal 05/14/2025 98 - 107 [facility] POTASSIUM 4.0 mmol/L 05/14/2025 3.5 - 5.1 [facility] A:G RATIO 1.15 Ratio 05/14/2025 0.91 - 1.95 [facility] BICARBONATE 35.0 mmol/L Above high normal 05/14/2025 24 - 32 [facility] SGPT 23.0 Units/L 05/14/2025 - 35 [facility] ABS. EOSINOPHIL 0.09 K/uL 05/14/2025 0 - 0.45 [facility] MONOCYTE 7.5 % 05/14/2025 0 - 12.5 [facility] LYMPHOCYTES 11.3 % Below low normal 05/14/2025 20 - 52 [facility] ABS. LYMPHOCYTE 1.25 K/uL 05/14/2025 1 - 5.2 [facility] NEUTROPHIL 78.9 % Above high normal 05/14/2025 50 - 70 [facility] EOSINOPHIL 0.8 % 05/14/2025 0 - 4 [facility] ABS. NEUTROPHIL 8.76 K/uL Above high normal 05/14/2025 2.5 - 7 [facility] ABS. IMMATURE GRAN. 0.15 K/uL Above high normal 05/14/2025 - 0.1 [facility] IMMATURE GRAN. 1.4 % Above high normal 05/14/2025 0 - 1. 1 [facility] ABS. NUCLEATED RBC 0.0 K/uL 05/14/2025 - [facility] ABS. MONOCYTE 0.83 K/uL 05/14/2025 0 - 0.9 [facility] BASOPHIL 0.1 % 05/14/2025 0 - 2 [facility] ABS. BASOPHIL 0.01 K/uL 05/14/2025 0 - 0.2 [facility] NUCLEATED RBC 0.0 % 05/14/2025 - [facility] DIFF TYPE AUTOMATED 05/14/2025 [facility] RDWS 47.0 fL 05/14/2025 41 - 51 [facility] MCV 94.3 fL 05/14/2025 80 - 96 [facility] HEMATOCRIT 34.5 % Below low normal 05/14/2025 38 - 47 [facility] HEMOGLOBIN 11.0 g/dL Below low normal 05/14/2025 12 - 16 [facility] MPV 11.7 fL 05/14/2025 8 - [address] [facility] [address] 283.0 K/uL 05/14/2025 150 - 450 [facility] MCHC 31.9 g/dL Below low normal 05/14/2025 32 - 36 CT [facility] RDWC 14.0 % 05/14/2025 11 - 16 [facility] MCH 30.1 pg 05/14/2025 27 - 31 [facility] WBC COUNT 11.09 K/uL Above high normal 05/14/2025 4.2 - 10 [facility] RBC COUNT 3.66 M/uL Below low normal 05/14/2025 4.2 - 5.4 CT [facility] Magnesium SerPl-mCnc 2.1 mg/dL 05/11/2025 1.6 - 2. 7 [facility] CO2 SerPl-sCnc 30.0 mmol/L 05/11/2025 22 - 33 HH CCT Glucose SerPl-mCnc 79.0 mg/dL 05/11/2025 65 - 99 [facility] Chloride SerPl-sCnc 97.0 mmol/L Below low normal 05/11/2025 98 - 107 [facility] GFR/BSA.pred SerPlBld DJZ-NAQ-SpSFsm 58.0 Below low normal 05/11/2025 59 - [facility]HCCT Creat SerPl-mCnc 1.0 mg/dL 05/11/2025 0.4 - 1.1 HH CCT Potassium SerPl-sCnc 3.8 mmol/L 05/11/2025 3.4 - 5 .3 [facility] BUN SerPl-mCnc 54.0 mg/dL Above high normal 05/11/2025 8 - 2 1 [facility] Anion Gap Bld-sCnc 10.0 05/11/2025 7 - 17 [facility] BUN/Creat SerPl 54.0 Ratio Above high normal 05/11/2025 10 - 25 [facility] Calcium SerPl-mCnc 8.5 mg/dL Below low normal 05/11/2025 8.7 - 10.5 [facility] Sodium SerPl-sCnc 137.0 mmol/L 05/11/2025 136 - 14 5 [facility] PMV Bld Auto 10.4 fL 05/11/2025 7.5 - 12.5 [facility] MCHC RBC Auto-mCnc 32.7 g/dL 05/11/2025 30 - 36 [facility] MCV RBC Auto 92.0 fL 05/11/2025 80 - 100 [facility] RBC num Bld Auto 3.97 Mil/uL Below low normal 05/11/2025 4 - 5.4 [facility] WBC num Bld Auto 14.7 Thou/uL Above high normal 05/11/2025 4 - 11 [facility] Platelet num Bld Auto 267.0 Thou/uL 05/11/2025 150 - 450 [facility] MCH RBC Qn Auto 30.0 pg 05/11/2025 27 - [address] Hct VFr Bld Auto 36.4 % 05/11/2025 35 - 47 HH CCT Hgb Bld-mCnc 11.9 g/dL 05/11/2025 11.7 - 15.7 [facility] T RDW RBC Auto-Rto 13.1 % 05/11/2025 11.5 - 14.5 [facility] ESR Bld Qn 39.0 MM/HR Above high normal 05/10/2025 - 30 [facility] Magnesium SerPl-mCnc 1.8 mg/dL 05/10/2025 1.6 - 2. 7 [facility] Anion Gap Bld-sCnc 10.0 05/10/2025 7 - 17 [facility] Glucose SerPl-mCnc 116.0 mg/dL Above high normal 05/10/2025 65 - 99 [facility] BUN SerPl-mCnc 57.0 mg/dL Above high normal 05/10/2025 8 - 2 1 [facility]CT CO2 SerPl-sCnc 31.0 mmol/L 05/10/2025 22 - 33 HH CCT Chloride SerPl-sCnc 96.0 mmol/L Below low normal 05/10/2025 98 - 107 [facility]CT Potassium SerPl-sCnc 3.4 mmol/L 05/10/2025 3.4 - 5 .3 [facility]CT BUN/Creat SerPl 52.0 Ratio Above high normal 05/10/2025 10 - 25 [facility]CT Sodium SerPl-sCnc 137.0 mmol/L 05/10/2025 136 - 14 5 HHCCT Calcium SerPl-mCnc 8.1 mg/dL Below low normal 05/10/2025 8.7 - 10.5 HHCCT GFR/BSA.pred SerPlBld DZO-OON-UkILsi 51.0 Below low normal 05/10/2025 59 - HHCCT Creat SerPl-mCnc 1.1 mg/dL 05/10/2025 0.4 - 1.1 HH CCT CRP SerPl-mCnc 2.67 mg/dL Above high normal 05/10/2025 0 - 0 .49 [facility]CT RDW RBC Auto-Rto 13.0 % 05/10/2025 11.5 - 14.5 [facility]CT RBC num Bld Auto 3.77 Mil/uL Below low normal 05/10/2025 4 - 5.4 [facility]CT Platelet num Bld Auto 269.0 Thou/uL 05/10/2025 150 - 450 [facility]CT Hgb Bld-mCnc 11.7 g/dL 05/10/2025 11.7 - 15.7 [facility] T MCHC RBC Auto-mCnc 33.3 g/dL 05/10/2025 30 - 36 [facility]CT MCH RBC Qn Auto 31.0 pg 05/10/2025 27 - [address] MCV RBC Auto 93.0 fL 05/10/2025 80 - 100 [facility] PMV Bld Auto 10.5 fL 05/10/2025 7.5 - 12.5 [facility]CT WBC num Bld Auto 8.1 Thou/uL 05/10/2025 4 - 11 [facility] nRBC num Bld Auto 0.02 Thou/uL 05/10/2025 0 - 0.02 HHCCT Hct VFr Bld Auto 35.1 % 05/10/2025 35 - 47 HH CCT nRBC/100 WBC Bld Auto-Rto 0.2 /100 WBC Above high normal 05/10/2025 0 - 0.1 [facility]CT Anion Gap Bld-sCnc 13.0 05/09/2025 7 - 17 [facility]CT Chloride SerPl-sCnc 94.0 mmol/L Below low normal 05/09/2025 98 - 107 [facility]CT BUN SerPl-mCnc 60.0 mg/dL Above high normal 05/09/2025 8 - 2 1 [facility]CT CO2 SerPl-sCnc 28.0 mmol/L 05/09/2025 22 - 33 HH CCT Glucose SerPl-mCnc 111.0 mg/dL Above high normal 05/09/2025 65 - 99 [facility]CT Potassium SerPl-sCnc 3.3 mmol/L Below low normal 05/09/2025 3.4 - 5.3 HHCCT GFR/BSA.pred SerPlBld EZU-CQY-LsOEei 46.0 Below low normal 05/09/2025 59 - HHCCT Creat SerPl-mCnc 1.2 mg/dL Above high normal 05/09/2025 0.4 - 1.1 [facility]CT Calcium SerPl-mCnc 8.2 mg/dL Below low normal 05/09/2025 8.7 - 10.5 H[facility]CT Sodium SerPl-sCnc 135.0 mmol/L Below low normal 05/09/2025 1 36 - 145 [facility]CT BUN/Creat SerPl 50.0 Ratio Above high normal 05/09/2025 10 - 25 H[facility]CT WBC num Bld Auto 5.1 Thou/uL 05/09/2025 4 - 11 [facility]CT nRBC num Bld Auto 0.02 Thou/uL 05/09/2025 0 - 0.02 [facility]CT nRBC/100 WBC Bld Auto-Rto 0.4 /100 WBC Above high normal 05/09/2025 0 - 0.1 H[facility]CT RDW RBC Auto-Rto 13.3 % 05/09/2025 11.5 - 14.5 [facility]CT RBC num Bld Auto 4.03 Mil/uL 05/09/2025 4 - 5.4 HHCCT MCHC RBC Auto-mCnc 32.0 g/dL 05/09/2025 30 - 36 [facility]CT Platelet num Bld Auto 239.0 Thou/uL 05/09/2025 150 - 450 [facility]CT MCV RBC Auto 96.0 fL 05/09/2025 80 - 100 [facility]CT Hgb Bld-mCnc 12.4 g/dL 05/09/2025 11.7 - 15.7 [facility] T Hct VFr Bld Auto 38.7 % 05/09/2025 35 - 47 HH CCT PMV Bld Auto 10.4 fL 05/09/2025 7.5 - 12.5 HHCCT MCH RBC Qn Auto 30.8 pg 05/09/2025 27 - [address] Chloride SerPl-sCnc 99.0 mmol/L 05/07/2025 98 - 10 7 [facility]HCCT CO2 SerPl-sCnc 23.0 mmol/L 05/07/2025 22 - 33 HH CCT Calcium SerPl-mCnc 8.8 mg/dL 05/07/2025 8.7 - 10.5 H[facility]CT BUN/Creat SerPl 41.0 Ratio Above high normal 05/07/2025 10 - 25 [facility]CT GFR/BSA.pred SerPlBld NVW-LQL-ZlWSih 46.0 Below low normal 05/07/2025 59 - HHCCT Glucose SerPl-mCnc 123.0 mg/dL Above high normal 05/07/2025 65 - 99 H[facility]CT Potassium SerPl-sCnc 3.7 mmol/L 05/07/2025 3.4 - 5 .3 HHCCT Creat SerPl-mCnc 1.2 mg/dL Above high normal 05/07/2025 0.4 - 1.1 HHCCT BUN SerPl-mCnc 49.0 mg/dL Above high normal 05/07/2025 8 - 2 1 H[facility]CT Anion Gap Bld-sCnc 19.0 Above high normal 05/07/2025 7 - 17 H[facility]CT Sodium SerPl-sCnc 141.0 mmol/L 05/07/2025 136 - 14 5 HHCCT MCV RBC Auto 96.0 fL 05/07/2025 80 - 100 H[facility]CT MCH RBC Qn Auto 30.4 pg 05/07/2025 27 - [address] Hgb Bld-mCnc 12.0 g/dL 05/07/2025 11.7 - 15.7 [facility] T RBC num Bld Auto 3.95 Mil/uL Below low normal 05/07/2025 4 - 5.4 [facility]CT Platelet num Bld Auto 290.0 Thou/uL 05/07/2025 150 - 450 H[facility]CT MCHC RBC Auto-mCnc 31.7 g/dL 05/07/2025 30 - 36 H[facility]CT WBC num Bld Auto 8.6 Thou/uL 05/07/2025 4 - 11 HHCCT RDW RBC Auto-Rto 13.4 % 05/07/2025 11.5 - 14.5 HHCCT Hct VFr Bld Auto 37.8 % 05/07/2025 35 - 47 HH CCT PMV Bld Auto 11.1 fL 05/07/2025 7.5 - 12.5 H[facility]CT ISTAT Arterial Total CO2 28.0 mmol/L 05/06/2025 22 - 28 [facility] Liter Flow 40.0 05/06/2025 [facility] ISTAT Arterial PO2 221.0 mmHg Above high normal 05/06/2025 7 5 - 95 [facility] ISTAT Sample Type Arterial 05/06/2025 H [facility] Blood Gas Draw Site Right radial artery 05/06/2025 [facility] ISTAT Arterial PCO2 39.9 mmHg 05/06/2025 32 - 45 [facility]CT ISTAT Arterial FIO2 100.0 05/06/2025 [facility] ISTAT Base Excess 3.0 mmol/L 05/06/2025 [facility] ISTAT Arterial HCO3 27.0 mmol/L Above high normal 05/06/2025 22 - 26 [facility]CT ISTAT Arterial pH 7.44 05/06/2025 7.35 - 7.45 [facility]CT Delivery System High Flow NC 05/06/2025 [facility]CT Beto Test Positive 05/06/2025 [facility] ISTAT O2 Saturation 100.0 % Above high normal 05/06/2025 9 4 - 97 [facility]CT CRP SerPl-mCnc 36.6 mg/dL Above high normal 05/06/2025 0 - 0 .49 H[facility]CT GFR/BSA.pred SerPlBld WQN-IBP-AaLBtn 51.0 Below low normal 05/06/2025 59 - HHCCT Glucose SerPl-mCnc 129.0 mg/dL Above high normal 05/06/2025 65 - 99 [facility]CT Calcium SerPl-mCnc 9.0 mg/dL 05/06/2025 8.7 - 10.5 H[facility]CT BUN/Creat SerPl 33.0 Ratio Above high normal 05/06/2025 10 - 25 [facility]CT CO2 SerPl-sCnc 25.0 mmol/L 05/06/2025 22 - 33 HH CCT Sodium SerPl-sCnc 140.0 mmol/L 05/06/2025 136 - 14 5 HHCCT Creat SerPl-mCnc 1.1 mg/dL 05/06/2025 0.4 - 1.1 HH CCT BUN SerPl-mCnc 36.0 mg/dL Above high normal 05/06/2025 8 - 2 1 [facility]CT Anion Gap Bld-sCnc 17.0 05/06/2025 7 - 17 [facility]CT Chloride SerPl-sCnc 98.0 mmol/L 05/06/2025 98 - 10 7 HHCCT Potassium SerPl-sCnc 3.9 mmol/L 05/06/2025 3.4 - 5 .3 HHCCT ESR Bld Qn 102.0 MM/HR Above high normal 05/06/2025 - 30 [facility]CT RBC num Bld Auto 3.9 Mil/uL Below low normal 05/06/2025 4 - 5.4 H[facility]CT WBC num Bld Auto 14.0 Thou/uL Above high normal 05/06/2025 4 - 11 H[facility]CT MCHC RBC Auto-mCnc 33.1 g/dL 05/06/2025 30 - 36 [facility]CT Platelet num Bld Auto 305.0 Thou/uL 05/06/2025 150 - 450 [facility]CT MCH RBC Qn Auto 30.3 pg 05/06/2025 27 - [address] MCV RBC Auto 92.0 fL 05/06/2025 80 - 100 [facility]CT PMV Bld Auto 11.2 fL 05/06/2025 7.5 - 12.5 H[facility]CT Hgb Bld-mCnc 11.8 g/dL 05/06/2025 11.7 - 15.7 [facility] T Hct VFr Bld Auto 35.7 % 05/06/2025 35 - 47 HH CCT RDW RBC Auto-Rto 13.2 % 05/06/2025 11.5 - 14.5 H[facility]CT pro BNP, N-terminal 86143.0 pg/mL Above high normal 05/06/20 25 - 450 [facility] Result Not Detected 05/05/2025 - CCT MDRN Aware Yes 05/05/2025 [facility] ISTAT Venous TCO2 30.0 mmol/L Above high normal 05/05/2025 2 3 - 29 [facility] ISTAT VENOUS PCO2 37.8 mmHg 05/05/2025 35 - 50 H [facility] Liter Flow 50.0 05/05/2025 [facility] ISTAT Base Excess 6.0 mmol/L 05/05/2025 [facility] ISTAT Venous pH 7.5 Above high normal 05/05/2025 7.33 - 7.43 HHT Blood Gas Draw Site VENOUS 05/05/2025 [facility] High Flow NC 05/05/2025 [facility] ISTAT Venous HCO3 29.1 mmol/L Above high normal 05/05/2025 2 3 - 28 HHT ISTAT Sample Type VENOUS 05/05/2025 H [facility] ISTAT Venous FIO2 100.0 [facility]05[facility] NA 05/05/2025 [facility] ISTAT Venous PO2 <50.0 mmHg 05/05/2025 0 - 60 H [facility] Ferritin SerPl-mCnc 746.0 ug/L Above high normal 05/05/2025 30 - 400 [facility]CT MCV RBC Auto 94.0 fL 05/05/2025 80 - 100 [facility]CT MCHC RBC Auto-mCnc 32.6 g/dL 05/05/2025 30 - 36 HHCCT Hct VFr Bld Auto 39.0 % 05/05/2025 35 - 47 HH CCT Platelet num Bld Auto 250.0 Thou/uL 05/05/2025 150 - 450 [facility]CT RDW RBC Auto-Rto 13.1 % 05/05/2025 11.5 - 14.5 HHCCT MCH RBC Qn Auto 30.5 pg 05/05/2025 27 - [address] PMV Bld Auto 11.3 fL 05/05/2025 7.5 - 12.5 H[facility]CT WBC num Bld Auto 17.3 Thou/uL Above high normal 05/05/2025 4 - 11 H[facility]CT RBC num Bld Auto 4.16 Mil/uL 05/05/2025 4 - 5.4 HHCCT Hgb Bld-mCnc 12.7 g/dL 05/05/2025 11.7 - 15.7 [facility] T Potassium SerPl-sCnc 3.9 mmol/L 05/05/2025 3.4 - 5 .3 HHCCT Creat SerPl-mCnc 1.1 mg/dL 05/05/2025 0.4 - 1.1 HH CCT CO2 SerPl-sCnc 27.0 mmol/L 05/05/2025 22 - 33 HH CCT Anion Gap Bld-sCnc 13.0 05/05/2025 7 - 17 [facility]CT BUN/Creat SerPl 24.0 Ratio 05/05/2025 10 - 25 HH CCT Calcium SerPl-mCnc 9.3 mg/dL 05/05/2025 8.7 - 10.5 HHCCT Sodium SerPl-sCnc 132.0 mmol/L Below low normal 05/05/2025 1 36 - 145 HHCCT Chloride SerPl-sCnc 92.0 mmol/L Below low normal 05/05/2025 98 - 107 HHCCT GFR/BSA.pred SerPlBld EPL-GSV-HmSOkg 51.0 Below low normal 05/05/2025 59 - HHCCT Glucose SerPl-mCnc 79.0 mg/dL 05/05/2025 65 - 99 H[facility]CT BUN SerPl-mCnc 26.0 mg/dL Above high normal 05/05/2025 8 - 2 1 CCT FLUAV RNA Nph Ql STEVE+probe Not Detected 05/05/2025 CCT 2019-nCOV RNA Not Detected 05/05/2025 CCT C pneum DNA Nph Ql STEVE+probe Not Detected 05/05/2025 [facility] RV+EV RNA Nph Ql STEVE+probe Not Detected 05/05/2025 [facility] HCoV [id number] Nph Ql STEVE+Pr Not Detected 05/05/2025 [facility] FLUBV RNA Nph Ql STEVE+probe Not Detected 05/05/2025 [facility] RSV B RNA Nph Ql STEVE+probe Not Detected 05/05/2025 [facility] HPIV3 RNA Nph Ql STEVE+probe Not Detected 05/05/2025 [facility] HPIV1 RNA Nph Ql STEVE+probe Not Detected 05/05/2025 [facility] HAdV A+B+C+D+E+F DNA Nph Ql STEVE+probe Not Detected 05/05/2025 [facility] FLUAV H3 RNA Nph Ql STEVE+probe Not Detected 05/05/2025 [facility] HPIV4 RNA Nph Ql STEVE+probe Not Detected 05/05/2025 [facility] hMPV RNA Nph Ql STEVE+probe Not Detected 05/05/2025 CCT M pneumo DNA Nph Ql STEVE+probe Not Detected 05/05/2025 [facility] FLUAV H1 RNA Nph Ql STEVE+probe Not Detected 05/05/2025 [facility] FLUAV H1 2009 pand RNA Nph Ql STEVE+probe Not Detected 05/05/2025 CCT RSV A RNA Nph Ql STEVE+probe Not Detected 05/05/2025 [facility] HPIV2 RNA Nph Ql STEVE+probe Not Detected 05/05/2025 CCT Procalcitonin SerPl EIA-mCnc 0.55 ng/mL Above high normal 05/05/2025 - 0.51 HHCCT ESR Bld Qn 28.0 MM/HR 05/04/2025 - 30 CCT Hct VFr Bld Auto 35.4 % 05/04/2025 35 - 47 HH CCT Hgb Bld-mCnc 11.5 g/dL Below low normal 05/04/2025 11.7 - 15 .7 CCT ISTAT Arterial Total CO2 30.0 mmol/L Above high normal 05/04/2025 22 - 28 CCT Beto Test Positive 05/04/2025 [facility] I[facility] Arterial FIO2 80.0 05/04/2025 [facility] Delivery System High Flow NC 05/04/2025 [facility] Blood Gas Draw Site Right radial artery 05/04/2025 [facility] ISTAT O2 Saturation 97.0 % 05/04/2025 94 - 97 [facility] I[facility] Arterial PO2 87.0 mmHg 05/04/2025 75 - 95 CCT ISTAT Arterial PCO2 41.3 mmHg 05/04/2025 32 - 45 CCT ISTAT Arterial HCO3 28.8 mmol/L Above high normal 05/04/2025 22 - 26 [facility] I[facility] Sample Type Arterial 05/04/2025 H HC[facility] ISTAT Base Excess 4.0 mmol/L 05/04/2025 [facility] Liter Flow 40.0 05/04/2025 H[facility] ISTAT Arterial pH 7.45 05/04/2025 7.35 - 7.45 CCT CRP SerPl-mCnc 11.9 mg/dL Above high normal 05/04/2025 0 - 0 .49 HHCCT Magnesium SerPl-mCnc 2.0 mg/dL 05/04/2025 1.6 - 2. 7 HHCCT Phosphate SerPl-mCnc 2.1 mg/dL Below low normal 05/04/2025 2 .7 - 4.5 HHCCT pro BNP, N-terminal 5024.0 pg/mL Above high normal 5 - 450 HHCCT CO2 SerPl-sCnc 25.0 mmol/L 05/04/2025 22 - 33 HH CCT GFR/BSA.pred SerPlBld [id number] 51.0 Below low normal 05/04/2025 59 - HHCCT Chloride SerPl-sCnc 93.0 mmol/L Below low normal 05/04/2025 98 - 107 HHCCT Glucose SerPl-mCnc 90.0 mg/dL 05/04/2025 65 - 99 HHCCT Calcium SerPl-mCnc 8.5 mg/dL Below low normal 05/04/2025 8.7 - 10.5 HHCCT Creat SerPl-mCnc 1.1 mg/dL 05/04/2025 0.4 - 1.1 HH CCT Potassium SerPl-sCnc 4.4 mmol/L 05/04/2025 3.4 - 5 .3 HHCCT BUN SerPl-mCnc 25.0 mg/dL Above high normal 05/04/2025 8 - 2 1 HHCCT BUN/Creat SerPl 23.0 Ratio 05/04/2025 10 - 25 HH CCT Anion Gap Bld-sCnc 10.0 05/04/2025 7 - 17 HHCCT Sodium SerPl-sCnc 128.0 mmol/L Below low normal 05/04/2025 1 36 - 145 HHCCT POC Glucose 126.0 mg/dL Above high normal 05/04/2025 65 - 99 HHCCT Hgb Bld-mCnc 10.7 g/dL Below low normal 05/02/2025 11.7 - 15 .7 HHCCT Hct VFr Bld Auto 32.9 % Below low normal 05/02/2025 35 - 47 HHCCT Est. average glucose Bld gHb Est-mCnc 103.0 mg/dL 04/24/2025 HHCCT Hgb A1c MFr Bld 5.2 % 04/24/2025 - 5.[address] Result Not Detected 04/24/2025 - HHCCT Potassium SerPl-sCnc 3.4 mmol/L 04/24/2025 3.4 - 5 .3 HHCCT Glucose SerPl-mCnc 79.0 mg/dL 04/24/2025 65 - 99 HHCCT CO2 SerPl-sCnc 27.0 mmol/L 04/24/2025 22 - 33 HH CCT Calcium SerPl-mCnc 9.4 mg/dL 04/24/2025 8.7 - 10.5 HHCCT GFR/BSA.pred SerPlBld [id number] 46.0 Below low normal 04/24/2025 59 - HHCCT BUN/Creat SerPl 23.0 Ratio 04/24/2025 10 - 25 HH CCT BUN SerPl-mCnc 27.0 mg/dL Above high normal 04/24/2025 8 - 2 1 HHCCT Chloride SerPl-sCnc 95.0 mmol/L Below low normal 04/24/2025 98 - 107 HHCCT Sodium SerPl-sCnc 137.0 mmol/L 04/24/2025 136 - 14 5 HHCCT Anion Gap Bld-sCnc 15.0 04/24/2025 7 - 17 HHCCT Creat SerPl-mCnc 1.2 mg/dL Above high normal 04/24/2025 0.4 - 1.1 HHCCT RBC num Bld Auto 4.2 Mil/uL 04/24/2025 4 - 5.4 H HCCT RDW RBC Auto-Rto 12.9 % 04/24/2025 11.5 - 14.5 HHCCT Hct VFr Bld Auto 40.4 % 04/24/2025 35 - 47 HH CCT Hgb Bld-mCnc 12.9 g/dL 04/24/2025 11.7 - 15.7 HHCC T MCV RBC Auto 96.0 fL 04/24/2025 80 - 100 HHCCT PMV Bld Auto 11.0 fL 04/24/2025 7.5 - 12.5 HHCCT MCH RBC Qn Auto 30.7 pg 04/24/2025 27 - [address] MCHC RBC Auto-mCnc 31.9 g/dL 04/24/2025 30 - 36 HHCCT Platelet num Bld Auto 352.0 Thou/uL 04/24/2025 150 - 450 CCT WBC num Bld Auto 12.8 Thou/uL Above high normal 04/24/2025 4 - 11 [facility] History of Medication Use Medication Directions Dispensed Refills Start Date End Date Status HYDROcodone-acetaminophe n (NORCO) 5-325 mg per tablet Take 1 tablet by mouth 4 times daily (every 6 hours) as needed for severe pain (pain). Max Daily Amount: 4 tablets 5 04/23/20 25 aborted fluticasone-salmeterol (Advair HFA) 230-21 MCG/ACT inhaler 2 puffs 2 (two) times a day. 5 active tiotropium (SPIRIVA RESPIMAT) 2.5 MCG/ACT inhaler Inhale 2 puffs (5 mcg total) daily. 5 active dorzolamide-timolol (COSOPT) 2-0.5 % ophthalmic solution 1 drop. 5 active diphenhydrAMINE-APAP, sleep, (TYLENOL PM EXTRA STRENGTH PO) Take by mouth. 5 04/23/20 25 aborted levothyroxine (SYNTHROID, LEVOTHROID) 50 MCG tablet 1 tablet (50 mcg total) daily on an empty stomach. 5 active losartan (COZAAR) 25 MG tablet Take 1 tablet (25 mg total) by mouth every morning. 5 active meloxicam (MOBIC) 7.5 MG tablet Take 1 tablet (7.5 mg total) by mouth daily. 5 active oxybutynin (DITROPAN) 5 mg tablet Take 1 tablet (5 mg total) by mouth 2 times a day. 5 active traZODone (DESYREL) 100 MG tablet Take 1 tablet (100 mg total) by mouth nightly. 5 active buPROPion (WELLBUTRIN XL) 150 MG 24 hr tablet Take 1 tablet (150 mg total) by mouth every morning. 5 active albuterol (PROVENTIL HFA; VENTOLIN HFA) 108 (90 Base) MCG/ACT inhaler Inhale 2 puffs 4 times daily (every 6 hours) as needed. 5 active FLUoxetine (PROzac) 40 MG capsule Take 1 capsule (40 mg total) by mouth every morning. 4 active lidocaine (PF) 100 mg/5 mL (2 %) injection syringe Take 4 mL by injection route. 4 active Marcaine (PF) 0.5 % (5 mg/mL) injection solution Take 4 mL by injection route. 4 active triamcinolone acetonide 40 mg/mL suspension for injection Take 40 mg by injection route. 4 active cyclobenzaprine (FLEXERIL) 5 MG tablet 3 (three) times a day as needed. 4 active Marcaine (PF) 0.5 % (5 mg/mL) injection solution active lidocaine (PF) 100 mg/5 mL (2 %) injection syringe active triamcinolone acetonide 40 mg/mL suspension for injection active amlodipine 5 mg tablet a ctive azithromycin 250 mg tablet TAKE 2 TABLETS BY MOUTH TODAY, THEN TAKE 1 TABLET DAILY FOR 4 DAYS DIRECTED active estradiol 0.01% (0.1 mg/gram) vaginal cream PLEASE SEE ATTACHED FOR DETAILED DIRECTIONS active fluoxetine 40 mg capsule active fluticasone propionate 50 mcg/actuation nasal spray,suspension SPRAY 2 SPRAYS BY NASAL ROUTE DAILY active hydrochlorothiazide 25 mg tablet active ketoconazole 2 % topical cream APPLY TOPICALLY VERY SPARINGLY TWICE A DAY TO RASH UNDER BREASTS active levothyroxine 50 mcg tablet active losartan 25 mg tablet TAKE 1 TABLET BY MOUTH EVERY DAY active metronidazole 0.75 % topical cream APPLY TOPICALLY TO AFFECTED AREA ON FACE TWICE DAILY FOR ROSACEA active Myrbetriq 25 mg tablet,extended release TAKE 1 TABLET BY MOUTH DAILY active nystatin 100,000 unit/gram topical cream APPLY LOCALLY TWICE A DAY active oxybutynin chloride ER 5 mg tablet,extended release 24 hr TAKE 3 TABLETS BY MOUTH DAILY active oxycodone 5 mg tablet TAKE 1 TABLET BY MOUTH EVERY 24 HOURS NEEDED FOR PAIN active pravastatin 20 mg tablet active Synthroid 25 mcg tablet active trazodone 100 mg tablet active aspirin enteric coated 81 MG EC tablet Take 1 tablet (81 mg total) by mouth every morning. active hydroCHLOROthiazide (HYDRODIURIL) 25 MG tablet 1 tablet (25 mg total) every morning. 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 2023-03-01 ProblemAct [facility] Pulmonary hypertension active 2024-11-01 ProblemAct [facility] Fibrosis of lung active 2022-07-27 ProblemAct [facility] Lung nodules active 2025-04-24 ProblemAct [facility] Cardiomyopathy active 2022-03-[address] Current smoker active 2024-08-[address] Depression active 2022-07-27 ProblemAct [facility] Arthritis of left shoulder region active 2025-04-24 ProblemAct [facility] Chronic constipation active 2016-01-04 ProblemAct [facility] Insomnia active 2018-01-30 ProblemAct [facility] Hypothyroidism active 2023-03-[address] Requires supplemental oxygen active 2024-11-01 ProblemAct [facility] Hyperlipidemia active 2018-01-[address] Chronic pain following right total knee arthroplasty active 2022-12-21 ProblemAct [facility] Arthritis of knee active 2022-12-21 ProblemAct [facility] Encounters Encounter Type Encounter Reason Primary Diagnosis Location Date Ambulatory [facility] 08/07/2025 Ambulatory Pulmonary fibrosis, unspecified Pulmonary fibrosis, unspecified [facility] 07/07/2025 Ambulatory Acute systolic (congestive) heart failure Acute systolic (congestive) heart failure [facility] 06/23/2025 Ambulatory Hypotension, unspecified Hypotension, unspecified [facility] 05/28/2025 Ambulatory Hypertensive heart disease with heart failure Hypertensive heart disease with heart failure [facility] 05/14/2025 Inpatient UNSPECIFIED FRAC TURE OF UPPER END OF LEFT HUMERUS, SUBSEQUENT ENCOUNTER FOR FRACTURE WITH ROUTINE HEALING [facility] 05/13/2025 Inpatient Presence of left artificial shoulder joint Presence of left artificial shoulder joint [facility] 05/01/2025 Ambulatory Encounter for other preprocedural examination Encounter for other preprocedural examination [facility] 04/24/2025 Emergency Other nonspecific abnormal finding of lung field Other nonspecific abnormal finding of lung field [employer] [place] 04/01/2025 Ambulatory [facility] 06/03/2024 Ambulatory [facility] 05/31/2024 Ambulatory [facility] 05/31/2024 Ambulatory [facility] 05/31/2024 Ambulatory [facility] 05/31/2024 Ambulatory [facility] 05/31/2024 Care Team Organization Name Specialty Phone Email Start Date End [facility] 07/02/2025 [facility] 05/19/2025 [facility] 05/15/2025 [facility] 05/14/2025 [facility] 05/13/2025 [employer] [place] 04/01/2025 05/30/2025 [employer] [facility] [place] [facility] 04/01/2025 [employer] [place] 04/01/2025 [facility] 08/02/2022 05/13/20 24
--- OUTSIDE RECORDS SUMMARY | 2025-08-15 08:52 | XMS_ITS | Data Portability ---
Author Organization [place] [facility] Address [address] [place] [address] Care Team Providers Care Logistics Technician Name Role Phone EDDA HAIR Referring Provider [phone] EDDA HAIR Primary Care Provider [phone] Assessment Encounter Date Assessment Date Assessment LastModified by Organization Details LastModified Time 12/21/2022 12/21/2022 77-year-old female following up on her chronic right knee pain seen on 09/27/2022 for which she noted improvement from her sliding injury however she has ongoing chronic pain she is addressed this with Dr. Williamson in the past. I did discuss further work-up however she declines this. She does have chronic back problems which she is bringing up to her primary care next week. I did discuss having her see Dr. Williamson once again for her chronic right knee pain however she declined this at this time. She does admit she is not compliant with her stretching exercises and routine which may be a contributing factor. Her also states this who is present with her at today's visit. Regarding her left knee she has very mild arthritis predominantly in the patellofemoral compartment. She opted for cortisone injection at today's visit. After verbal consent was obtained. The procedure was carried out. The patient tolerated the procedure well. Aftercare instructions were discussed in detail. Follow-up visit 3 months time for repeat clinical exam. Should her symptoms not improve or worsen she should contact my office. Patient agrees with the above-noted plan. Additional treatment plan discussed with the patient in detail included the following; - Provider focused nonsteroidal anti-inflammatory regimen (discussed were the pros, cons, benefits and risks as well as any black box warnings) - Analgesic pain medication for pain suppression (discussed were the pros, cons, benefits and risks as well as any black box warnings) - The use of topical pain relieving medication were discussed - The use of ice to decrease inflammation and pain - The use of assistive ambulatory devices for ambulation and fall prevention - Formal specific guided physical therapy program I reviewed my findings at length with the patient today. We discussed the nature and etiology of this problem along with current treatment options. We discussed the expected course and outcomes and what to expect. We also discussed risks and benefits. All of their questions were answered today, and there was exhibited understanding and comprehension of all that was discussed. 10 minutes were spent reviewing previous imaging and charting. 15 minutes were spent obtaining patient history. 5 minutes were spent on physical exam. 15minutes were spent explaining diagnosis and assessment. Today's documentation was made using voice recognition software. This note may contain grammatical errors secondary to the software. Not available 12/21/2022 13:36:03 05/31/2024 05/31/2024 HPI : Patient is here today with complaints of left knee pain. T he patient is experiencing left knee pain, which is moderate in intensity, and has recently worsened. The pain limits some activities of daily living. Walking tolerance is reduced. Pain and restriction of function are moderate at this time. She also has a history of a right total knee replacement by Dr. Williamson. She never felt great following the knee replacement. There has been some persistent pain. This has been steady. Pain particular in the medial aspect of the knee. Review of systems is negative for other rapidly progressive neurological disorder, chest pain, shortness of breath, fevers, chills, or any signs of active or persistent local or systemic infection. Physical Exam : Patient is well nourished, well-developed, in no acute distress, with appropriate mood and affect. The patient is oriented to time, place, and person. Examination of the right knee shows a well-healed skin incision. Range of motion is 0 to 120 degrees. Stable to varus and valgus stress. Stable to AP translation. Left knee motion is reduced and does cause significant pain. The left knee moves from 0-130 degrees. The knees are stable within those [id number]. The alignment of the left knee is valgus . Muscle strength is normal. Pedal pulses are palpable. Hip examination, including flexion and internal rotation, was negative in that groin pain was not produced. Assessment/Plan : Regarding her right knee she is 3 years from right total knee replacement with Dr. Williamson. I do not see any implant related issues on exam or imaging. We discussed that some patients do have some persistent pain following right total knee replacement. Declined further workup at this time. The patient has left knee arthritis. An extensive discussion was conducted on the natural history of the disease and the variety of surgical and non-surgical options available to the patient including, but not limited to non-steroidal anti-inflammatory medications, steroid injections, viscosupplementat ion, physical therapy, maintenance of ideal body weight, and reduction of activity. Plan for left knee corticosteroid injection today. Her preference is to follow-up as needed. Not available 05/31/2024 14:04:30 Plan of Treatment Reminders Order Date Submit Date Provider Last Modified By Organization Details Last Modified Time Details Appointments None recorded. Lab None recorded. Referral None recorded. Procedures None recorded. Surgeries None recorded. Imaging XR, knee, 4 or more view 2023 024 [email or web address] [facility], [address], [address], [place], [address], 4 14:30:49 XR, knee, 4 or more view 2023 024 [email or web address] [facility], [address], [address], [place], [address], 4 14:30:49 XR, knee, 3 view 2022 023 [email or web address] [facility], [address], [place], [address], 3 07:56:41 Medication Orders Marcaine (PF) 0.5 % (5 mg/mL) injection solution 2023 024 [email or web address] [id number], [address] [place] [address], [address], 4 14:30:49 lidocaine (PF) 100 mg/5 mL (2 %) injection syringe 2023 024 [email or web address] [id number], [address] [place], [address], 4 14:30:49 triamcinolo ne acetonide 40 mg/mL suspension for injection 2023 024 [email or web address] [id number], [address] [place], [address], 4 14:30:49 Kenalog 40 mg/mL suspension for injection 2022 023 [email or web address] [id number], [address] [place], [address], 3 13:37:09 lidocaine (PF) 100 mg/5 mL (2 %) injection syringe 2022 023 [email or web address] [id number], [address] [place] [address], [address], 3 13:37:09 Patient TargetsNo targets recorded. Patient Instructions Encounter Date Encounter Id Patient Instructions Last Modified By Organization Details Last Modified Time 12/21/2022 [id number] Left knee x-rays taken at today's visit reveals mild degenerative changes predominantly in the lateral compartment left knee with subchondral sclerosis as well as patellofemoral joint space narrowing without acute bony abnormality. Patient Instructions Following Cortisone Injections Elly Sanders, MS, PA-C has recommended a cortisone injection of the LEFT Knee for you in the office today He has injected the area in order to reduce the pain and inflammation that you are experiencing. Please note that not everyone will have a lasting response following the injection. Here is some information that he would like for you to have: Content of the Injection: The injection consists of two medications. Cortisone (an anti-inflammatory that will take 48-72 hours to take effect) and Lidocaine (a numbing agent that will last 2-3 hours). Once the Lidocaine wears off, you may have an increase in your pain. l recommend icing the affected area for 20 minutes 3-4 times per day. Post-injection Instructions: It is recommended that you refrain from any high level activities using the joint or limb that was injected for approximately 24-48 hours. Normal day to day activities are generally not a problem. Possible Side Effects: Skin discoloration: Individuals with dark complexions may experience some skin discoloration locally at the site of the injection. Steroid Flare-Up: There is the possibility of an increase in discomfort within 48 hours following the injection. This is called luba diggs . To help minimize the chances of this, please see the post-injection instructions above. Infection: There is a less than 1% chance of an infection. If you notice any signs of infection (redness, warmth, drainage, fever greater than 100 degrees) you should call Elly's office immediately. Not available 12/21/2022 13:39:00 05/31/2024 [id number] AP, lateral, and patellar radiographs of the right knee taken today demonstrate satisfactory position and alignment of components following right total knee replacement. AP, lateral, Murphy, and patellar view radiographs of the left knee taken today demonstrate left knee degenerative joint disease with joint space narrowing, osteophyte formation, and subchondral sclerosis. Not available 05/31/2024 14:04:44 Reason for Referral None Reported. 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 28203096447 95381 Active 2018 Nontrauma tic complete tear of right rotator cuff Not Available [facility] 5 23:47:30 Disorder of shoulder 913730510 Active 2018 Shoulder impingeme nt, right Not Available [facility] 5 23:47:30 Arthritis of knee 606633113 Active 2022 ELLY SANDERS PA-C [address], [place], [address] , [place] [facility] 3 13:28:18 Chronic pain following right total knee arthropla sty 96388904534 866832 Active 2022 ELLY SANDERS PA-C [address], [place], [address] , [place] [facility] 3 13:29:02 Problem Notes None recorded. Procedures Surgical History Date Name Laterality Status Provider Name and Address Organization Details Recorded Time 4 MJG Knee Injection w/o US completed Jeremie Hayden MD [address] [facility] [address], [place], [address], [facility] 05/31/2024 14:04:57 3 Knee Joint/Bursa Asp & Inj completed ELLY SANDERS PA-C [address] [facility] [address], [place], [address], [facility] 12/21/2022 13:27:31 Imaging Results None recorded. Procedure Notes None recorded. Medical Equipment None Reported. Allergies Allergen ID Allergen Name Allergen Category Reaction Reaction Severity Criticality Documentation Date Start Date Code Code System Note Provider Name and Address Organization Details Recorded Time 1108 lisinopri l medicatio n Not available Not available Not available 12/21/2022 17190 RxNorm Sinai rowan, [facility] 3 12:53:27 Medications Name Sig Start Date Stop Date Status Note LastModified by Organization Details LastModified Time celecoxib 200 mg capsule 2020 active Not Available Not Available Not Avai lable fluoxetine 40 mg capsule Take 40 mg by mouth. active Not Available Not Available No t Available fluconazole 100 mg tablet 2020 active Not Available Not Available Not Avai lable trazodone 50 mg tablet 2018 active Not Available Not Available Not Avai lable azithromyci n 250 mg tablet TAKE 2 TABLETS BY MOUTH TODAY, THEN TAKE 1 TABLET DAILY FOR 4 DAYS DIRECTED active Not Available Not Available No t Available hydrocodone 5 mg-acetamin ophen 325 mg tablet Take 1 tab every 12 hours as needed for pain 2019 active Not Available Not Available Not Avai lable amlodipine 5 mg tablet Take 5 mg by mouth. active Not Available Not Available No t Available acetaminoph en 500 mg tablet Take 500 mg by mouth. active Not Available Not Available No t Available amoxicillin 500 mg tablet Take 4 tabs 1 hour prior to dental appointme nt 2020 active Not Available Not Available Not Avai lable levothyroxi ne 25 mcg tablet Take 1 tablet (25 mcg total) by mouth. 03/10 completed Not Available Not Available Not Available acetaminoph en ER 650 mg tablet,exte nded release Take 650 mg by mouth. 2016 active Not Available Not Available Not Avai lable magnesium oxide 400 mg (241.3 mg magnesium) tablet Take 1 tablet by mouth. 2016 active Not Available Not Available Not Avai lable trazodone 100 mg tablet active Not Available Not Available Not Available triamcinolo ne acetonide 40 mg/mL suspension for injection Take 40 mg by injection route. 2023 active Not Available Not Available Not Avai lable levothyroxi ne 50 mcg tablet active Not Available Not Available Not Available methylpredn isolone acetate 40 mg/mL suspension for injection 12/21 completed Not Available Not Available Not Available nystatin 100,000 unit/gram topical cream APPLY LOCALLY TWICE A DAY active Not Available Not Available No t Available metronidazo le 0.75 % topical cream APPLY TOPICALLY TO AFFECTED AREA ON FACE TWICE DAILY FOR ROSACEA active Not Available Not Available No t Available losartan 25 mg tablet Take 25 mg by mouth daily. active Not Available Not Available No t Available oxybutynin chloride ER 5 mg tablet,exte nded release 24 hr TAKE 3 TABLETS BY MOUTH DAILY active Not Available Not Available No t Available gabapentin 300 mg capsule 2020 active Not Available Not Available Not Avai lable aspirin 81 mg tablet Take 81 mg by mouth. active Not Available Not Available No t Available pravastatin 20 mg tablet active Not Available Not Available Not Available hydrochloro thiazide 25 mg tablet active Not Available Not Available No t Available estradiol 0.01% (0.1 mg/gram) vaginal cream PLEASE SEE ATTACHED FOR DETAILED DIRECTION S active Not Available Not Available No t Available albuterol sulfate HFA 90 mcg/actuati on aerosol inhaler 2020 active Not Available Not Available Not Avai lable ketoconazol e 2 % topical cream APPLY TOPICALLY VERY SPARINGLY TWICE A DAY TO RASH UNDER BREASTS active Not Available Not Available No t Available oxybutynin chloride 5 mg tablet 2018 active Not Available Not Available Not Avai lable fluticasone propionate 50 mcg/actuati on nasal spray,suspe nsion spray or apply 2 sprays inside Nose. active Not Available Not Available No t Available oxycodone 5 mg tablet Take 1 tab every 24 hours as needed for pain 2021 active Not Available Not Available Not Avai lable docosahexae noic acid (dha)-epa 120 mg-180 mg capsule Take 1,000 mg by mouth. 2016 active Not Available Not Available Not Avai lable Marcaine (PF) 0.5 % (5 mg/mL) injection solution Take 4 mL by injection route. 2023 active Not Available Not Available Not Avai lable Spiriva with HandiHaler 18 mcg and inhalation capsules 2020 active Not Available Not Available Not Avai lable vitamin E phosphate 400 Unit capsule Take 1 capsule by mouth. 2016 active Not Available Not Available Not Avai lable timolol maleate 0.5 % once daily eye drops Apply 1 drop to eye. active Not Available Not Available No t Available lidocaine (PF) 10 mg/mL (1 %) injection solution 07/19 completed Not Available Not Available Not Available coenzyme R60-gavgujg E 100 mg-5 unit capsule Take 2 capsules by mouth daily. active Not Available Not Available No t Available lidocaine (PF) 100 mg/5 mL (2 %) injection syringe Take 4 mL by injection route. 2023 active Not Available Not Available Not Avai lable Myrbetriq 25 mg tablet,exte nded release TAKE 1 TABLET BY MOUTH DAILY active Not Available Not Available No t Available hyaluronate sodium, stabilized 60 mg/3 mL intra-artic ular syringe 04/24 completed Not Available Not Available Not Available Vitals Date Recorded Body height Body mass index (BMI) Body weight Provider Name and Address Organization Details Last Updated DateTime 05/31/2024 162.56 cm 28.2 kg/m2 86912.15 g Ivelisse Botello [place] [facility] 05/31/2024 13:41:48 Social History Question Answer Notes LastModified by Organizat ion Details LastModified Time Tobacco Smoking Status Current Every Day Smoker Ivelisse Botello null, [place] [facility] 05/31/2024 13:45:21 How Much Tobacco Do You Smoke? 1 PPD [email or web address] Information not available 05/31/2024 Sex: Unknown Functional Status Question Answer Note LastModified by Organizat ion Details LastModified Time How many times per week do you consume alcohol? 3-4 times per week [email or web address] Information not available 05/31/2024 Do you use any illicit or recreational drugs? No [email or web address] Information not available 05/31/2024 What is your level of alcohol consumption? Occasional Information not available 05/31/2024 Mental Status None recorded. Family History Nothing Reported. Medical History Condition Response Hypertension Y Gynecological HistoryNo gynecological history recorded. Obstetrics History GPAL:G 0 P 0 0 0 0 Past Encounters Encounter ID Performer Location Encounter Start Date Encounter Closed Date Diagnosis/Indication Diagnosis SNOMED-CT Code Diagnosis ICD10 Code Diagnosis IMO Codes [id number] [address] [facility] [address] [place] [address] 12/21/2022 12:46:36 12/21/2022 13:26:27 Pain of left knee joint 7845368968 29444 M25.562 Chronic pa in following right total knee arthroplasty 0076010041 2611184 T84.84XD Arthritis of knee 608512 002 M13.862 [id number] MD HUE [facility] [address] [facility] [address] [place] [address] 05/31/2024 13:30:40 05/31/2024 14:01:12 History of right total knee replacement 3448257408 111335 Z96.651 17044120 Pain of le ft knee region 8916258589 33875 M25.562 23083647 Osteoarthr itis of left knee joint 6433899138 17228 M17.12 2274108 Health Concerns Section Related Observation LastModified by Organization Detai ls LastModified Time None Recorded Concern Status LastModified by Organization Details LastModified Time None Recorded Advance Directives Directive None Recorded Payers Insurance Date Sequence Insurance Name Policy Number Policy Aldana Covered Member ID Aldana Member ID Guarantor Name 06/03/2024 1 [facility] - MEDICARE PREFERRED (MEDICARE REPLACEMENT HMO) [employer] Mendy Jack [id number] Mendy Jack 06/03/2024 2 () Mendy Jack [id number] Mendy Jack Notes Date Note Type Note Provider Name and Address Organization Details Recorded Time 12/21/2022 text/html Assessment and Plan: Date of visit [id number] female history of right total knee arthroplasty on July 26, 2021. With recent sliding injury onto a carpeted floor approximately 2 and half weeks ago. She may have a grade 1 MCL sprain. We discussed treatment options she opted for double hinged knee brace for which she was fitted for. I would like to reevaluate her in 4 weeks for repeat clinical exam. Should her symptoms worsen she should contact my office. In the meantime she can take [id number] pain medication and topical analgesics for symptomatic relief.It appears she did not cause any loosening to her knee replacement. She will continue with her stretching exercises. I did review her x-rays with her she should continue with her stretching exercise regimen. She also understands will take her antibiotic prophylaxis. She agrees with the above-noted plan. If she has any worsening symptoms she should contact her office.She had a scheduled follow-up visit on 10/25/2022 however she canceled appointment. HPI:Patient states recovered from her sliding injury of her right knee. However she does admit she does not do her stretching exercises she states has had chronic knee pain before and after her total knee replacement surgery for which she has brought up in the past with Dr. Williamson. Her who is accompanied with her at today's visit states the patient is not compliant with doing her stretching exercises or physical activity Here for left knee pain chronic in nature cortisone injection she states was approximately a year ago. She describes her pain is medial nature that gets worse with walking. She is going to be leaving to her summer home within the next few weeks. Patient states she has an upcoming primary care appointment for which she is going to address chronic back issues. Denies any urinary or bowel changes or saddle anesthesia. ELLY SANDERS PA-C [address] [place] [address], [phone], [place] - [facility] 12/21/2022 13:40:13 OBGyn Episode No OBEpisode recorded.
--- OUTSIDE RECORDS SUMMARY | 2025-08-15 08:52 | XMS_ITS | Encounter Summary ---
Author Organization [facility] Address [address] [place] [address] Care Team Providers Care Airport Baggage Screener Name Role Phone Danae Sanchez MD Primary Care Provider [phone] Encounter Details Date Type Department Care Team ([facility] Contact Info) Description 07/17/2025 Lab Requisition [facility] - Main Lab [address] [facility] [place] [phone] Rogelio Avelar MD [address] [place] [address] Anemia, unspecified Social History Tobacco Use Types Packs/Day Years Used Date Smoking Tobacco: Every Day Cigarettes 1 Last attempted to quit: 07/26/2021 Smokeless Tobacco: Never Alcohol Use Standard Drinks/Week Comments Yes 0 [...] Record ed Within the last 3 months, samanta tran many times did you visit the emergency [...] do you feel lonely or isolated from ose around you? Rarely 08/14/2024 Food Risk [...] for your loved ones. For example, child day care center worker or elderly care for an older adult? [...] Orientation Straight 08/19/2024 12 :54 PM EST documented as of this encounter Plan of Treatment Upcoming Encounters Date Type Department Care Team (Late st Contact Info) Description 10/20/2025 3:30 PM EST Ancillary Procedure [facility] - [address] [place] [phone] 12/01/2025 3:45 PM EDT Office Visit Pulmonology - [place] [address] [place] [phone] Akilah Bowen MD [address] [place] [phone] documented as of this encounter Procedures Procedure Name Priority Date/Time Associated Diagnosis Comments COMPLETE BLOOD COUNT Routine 07/17/2025 10:02 AM EDT Anemia, unspecified COMPREHENSIVE METABOLIC PANEL Routine 07/17/2025 10:02 AM EDT Anemia, unspecified documented in this encounter Results * (ABNORMAL) Comprehensive metabolic panel (07/17/2025 10:02 AM EDT) Sodium 138 133 - 145 mmol/L LAB CHEMISTRY METHOD 07/17/2025 2:45 PM [facility] Potassium 3.6 3.5 - 5.5 mmol/L LAB CHEMISTRY METHOD 07/17/2025 2:45 PM [facility] Chloride 98 96 - 110 mmol/L LAB CHEMISTRY METHOD 07/17/2025 2:45 PM [facility] CO2 30 21 - 32 mmol/L LAB CHEMISTRY METHOD 07/17/2025 2:45 PM [facility] Anion Gap 10 3 - 11 LAB CHEMISTRY METHOD 07/17/2025 2:45 PM [facility] Glucose 67(L) 70 - 100 mg/dL LAB CHEMISTRY METHOD 07/17/2025 2:45 PM [facility] BUN 27(H) 5 - 25 mg/dL LAB CHEMISTRY METHOD 07/17/2025 2:45 PM [facility] Creatinine 1.33(H) 0.50 - 1.10 mg/dL LAB CHEMISTRY METHOD 07/17/2025 2:45 PM T [facility] eGFR 41(L) >=60 mL/min/1. 73m2 LAB CHEMISTRY METHOD 07/17/2025 2:45 PM T [facility] Comment:Calculation based on the Chronic Kidney Disease Epidemiology Collaboration (CKD-EPI) equation refit without adjustment for race. BUN/Creatinine Ratio 20.3 LAB CHEMISTRY METHOD 07/17/2025 2:45 PM T [facility] Calcium 9.2 8.5 - 10.5 mg/dL LAB CHEMISTRY METHOD 07/17/2025 2:45 PM [facility] AST (SGOT) 23 10 - 42 unit/L LAB CHEMISTRY METHOD 07/17/2025 2:45 PM [facility] ALT (SGPT) 13 10 - 60 unit/L LAB CHEMISTRY METHOD 07/17/2025 2:45 PM [facility] Alkaline Phosphatase 65 42 - 121 unit/L LAB CHEMISTRY METHOD 07/17/2025 2:45 PM [facility] Total Protein 5.5(L) 6.0 - 8.0 g/dL LAB CHEMISTRY METHOD 07/17/2025 2:45 PM [facility] Albumin 2.5(L) 3.2 - 5.0 g/dL LAB CHEMISTRY METHOD 07/17/2025 2:45 PM [facility] Total Bilirubin 0.3 0.0 - 1.4 mg/dL LAB CHEMISTRY METHOD 07/17/2025 2:45 PM [facility] Blood Venous blood specimen / Unknown Venipuncture / Unknown 07/17/2025 10:02 AM EDT 07/17/2025 12:10 PM EDT us Rogelio Avelar MD LAB BLOOD ORDERABLES Final Result [facility] [address] [place] [address], * (ABNORMAL) Complete blood count (07/17/2025 10:02 AM EDT) [facility] WBC 13.0(H) 4.8 - 10.8 K/mcL LAB HEMETOLOGY METHOD 07/17/2025 12:34 PM [facility] RBC 3.90 3.80 - 4.80 M/mcL LAB HEMETOLOGY METHOD 07/17/2025 12:34 PM [facility] Hemoglobin 11.4(L) 11.5 - 16.0 g/dL LAB HEMETOLOGY METHOD 07/17/2025 12:34 PM [facility] Hematocrit 36.9 35.0 - 47.0 % LAB HEMETOLOGY METHOD 07/17/2025 12:34 PM [facility] MCV 95.3 79.0 - 98.0 FL LAB HEMETOLOGY METHOD 07/17/2025 12:34 PM [facility] MCH 29.5 27.0 - 32.0 pcg LAB HEMETOLOGY METHOD 07/17/2025 12:34 PM [facility] MCHC 30.9(L) 32.0 - 37.0 g/dL LAB HEMETOLOGY METHOD 07/17/2025 12:34 PM [facility] RDW 18.9(H) 11.0 - 15.0 % LAB HEMETOLOGY METHOD 07/17/2025 12:34 PM [facility] Platelets 252 130 - 400 K/mcL LAB HEMETOLOGY METHOD 07/17/2025 12:34 PM [facility] MPV 10.6 7.0 - 11.0 FL LAB HEMETOLOGY METHOD 07/17/2025 12:34 PM [facility] NRBC 0.0 <1.0 % LAB HEMETOLOGY METHOD 07/17/2025 12:34 PM EDT [facility] NRBC Absolute 0.00 <0.10 K/mcL LAB HEMETOLOGY METHOD 07/17/2025 12:34 PM EDT [facility] Blood Venous blood specimen / Unknown Venipuncture / Unknown 07/17/2025 10:02 AM EDT 07/17/2025 12:10 PM EDT us Rogelio Avelar MD LAB BLOOD ORDERABLES Final Result [facility] [address] [place] [address], documented in this encounter Visit Diagnoses Diagnosis Anemia, unspecified documented in this encounter Additional Health Concerns Assessment Noted Time PHQ-9 Depression Total Score: 9 01/08/20 25 12:13 PM EDT documented as of this encounter Care Teams Airport Baggage Screener Relationship Specialty Start Date End Date Danae Sanchez MD [address] [phone] PCP - General Internal Medicine 08/06/24 documented as of this encounter
--- OUTSIDE RECORDS SUMMARY | 2025-08-15 08:53 | XMS_ITS | Encounter Summary ---
Author Organization [facility] Address [address] [place] [address] Care Team Providers Care Coconut Candy Maker Name Role Phone Danae Sanchez MD Primary Care Provider [phone] Encounter Details Date Type Department Care Team (Late Contact Info) Description 07/30/2025 Lab Requisition [facility] - Main Lab [address] [facility] [place] [phone] Rogelio Avelar MD [address] [place] [phone] Anemia, unspecified Social History Tobacco Use Types [...] for your loved ones. For example, child care education coordinator or elderly care for an older adult? [...] Description 10/20/2025 3:30 PM EST Ancillary Procedure [facility] - [address] [place] [phone] 12/01/2025 3:45 PM EDT Office Visit Pulmonology - [place] [address] [place] [phone] Akilah Bowen MD [address] [place] [phone] documented as of this encounter Procedures Procedure Name Priority Date/Time Associated Diagnosis Comments COMPLETE BLOOD COUNT Routine 07/31/2025 7:33 AM EST Anemia, unspecified BASIC METABOLIC PANEL Routine 07/31/2025 7:33 AM EST Anemia, unspecified documented in this encounter Results * (ABNORMAL) Basic metabolic panel (07/31/2025 7:33 AM EST) Sodium 140 133 - 145 mmol/L LAB CHEMISTRY METHOD 07/31/2025 12:23 PM [facility] Potassium 3.4(L) 3.5 - 5.5 mmol/L LAB CHEMISTRY METHOD 07/31/2025 12:23 PM [facility] Chloride 101 96 - 110 mmol/L LAB CHEMISTRY METHOD 07/31/2025 12:23 PM [facility] CO2 32 21 - 32 mmol/L LAB CHEMISTRY METHOD 07/31/2025 12:23 PM [facility] Anion Gap 7 3 - 11 LAB CHEMISTRY METHOD 07/31/2025 12:23 PM [facility] Glucose 53(L) 70 - 100 mg/dL LAB CHEMISTRY METHOD 07/31/2025 12:23 PM [facility] BUN 28(H) 5 - 25 mg/dL LAB CHEMISTRY METHOD 07/31/2025 12:23 PM [facility] Creatinine 1.01 0.50 - 1.10 mg/dL LAB CHEMISTRY METHOD 07/31/2025 12:[address] [facility] eGFR 57(L) >=60 mL/min/1. 73m2 LAB CHEMISTRY METHOD 07/31/2025 12:23 PM [facility] Comment:Calculation based on the Chronic Kidney Disease Epidemiology Collaboration (CKD-EPI) equation refit without adjustment for race. BUN/Creatinine Ratio 27.7 LAB CHEMISTRY METHOD 07/31/2025 12:[address] [facility] Calcium 9.0 8.5 - 10.5 mg/dL LAB CHEMISTRY METHOD 07/31/2025 12:23 PM [facility] Blood Venous blood specimen / Unknown Venipuncture / Unknown 07/31/2025 7:33 AM EST 07/31/2025 10:11 AM EST us Rogelio Avelar MD LAB BLOOD ORDERABLES Final Result [facility] [address] [place] [address], * (ABNORMAL) Complete blood count (07/31/2025 7:33 AM EST) WBC 11.8(H) 4.8 - 10.8 K/mcL LAB HEMETOLOGY METHOD 07/31/2025 11:30 AM [facility] RBC 3.50(L) 3.80 - 4.80 M/mcL LAB HEMETOLOGY METHOD 07/31/2025 11:30 AM [facility] Hemoglobin 10.1(L) 11.5 - 16.0 g/dL LAB HEMETOLOGY METHOD 07/31/2025 11:30 AM [facility] Hematocrit 32.5(L) 35.0 - 47.0 % LAB HEMETOLOGY METHOD 07/31/2025 11:30 AM [facility] MCV 93.9 79.0 - 98.0 FL LAB HEMETOLOGY METHOD 07/31/2025 11:[address] [facility] MCH 29.2 27.0 - 32.0 pcg LAB HEMETOLOGY METHOD 07/31/2025 11:30 AM [facility] MCHC 31.1(L) 32.0 - 37.0 g/dL LAB HEMETOLOGY METHOD 07/31/2025 11:30 AM [facility] RDW 17.4(H) 11.0 - 15.0 % LAB HEMETOLOGY METHOD 07/31/2025 11:30 AM [facility] Platelets 332 130 - 400 K/mcL LAB HEMETOLOGY METHOD 07/31/2025 11:30 AM [facility] MPV 10.5 7.0 - 11.0 FL LAB HEMETOLOGY METHOD 07/31/2025 11:30 AM [facility] NRBC 0.0 <1.0 % LAB HEMETOLOGY METHOD 07/31/2025 11:30 AM [facility] NRBC Absolute 0.00 <0.10 K/mcL LAB HEMETOLOGY METHOD 07/31/2025 11:30 AM [facility] Blood Venous blood specimen / Unknown Venipuncture / Unknown 07/31/2025 7:33 AM EST 07/31/2025 10:11 AM EST Rogelio Avelar MD LAB BLOOD ORDERABLES Final Result [facility] [address] [place] [address], documented in this encounter Visit Diagnoses Diagnosis Anemia, unspecified documented in this encounter Additional Health Concerns Assessment Noted Time PHQ-9 Depression Total Score: 9 01/08/20 25 12:13 PM EDT documented as of this encounter Care Teams Coconut Candy Maker Relationship Specialty Start Date End Date Danae Sanchez MD [address] [phone] PCP - General Internal Medicine 08/06/24 documented as of this encounter
--- OUTSIDE RECORDS SUMMARY | 2025-08-15 08:53 | XMS_ITS | Encounter Summary ---
Author Organization [facility] Address [address] [place] [address] Care Team Providers Care Geriatric Nurse Practitioner Name Role Phone Danae Sanchez MD Primary Care Provider [phone] Encounter Details Date Type Department Care Team (Late Contact Info) Description 07/20/2025 Lab Requisition [facility] - Main Lab [address] [facility] [place] [phone] Rogelio Avelar MD [address] [place] [address] Urinary tract infection, site not specified; Dysuria Social History Tobacco Use Types Packs/Day Years [...] ed Within the last 3 months, samanta w many times did you visit the [...] for your loved ones. For example, child life therapist or elderly care for an older adult? [...] Description 10/20/2025 3:30 PM EST Ancillary Procedure [facility] - [address] [place] [phone] 12/01/2025 3:45 PM EDT Office Visit Pulmonology - [place] [address] [facility] [place] [phone] Akilah Bowen MD [address] [place] [phone] documented as of this encounter Procedures Procedure Name Priority Date/Time Associated Diagnosis Comments URINALYSIS WITH REFLEX MICROSCOPIC Routine 07/19/2025 9:00 PM EDT Urinary tract infection, site not specified Dysuria URINALYSIS WITH REFLEX MICROSCOPIC Routine 07/19/2025 9:00 PM EDT Urinary tract infection, site not specified Dysuria CULTURE URINE Routine 07/19/2025 9:00 PM EDT Urinary tract infection, site not specified Dysuria documented in this encounter Results * (ABNORMAL) Urinalysis with reflex microscopic (07/19/2025 9:00 PM EDT) Specific [place] Urine 1.013 1.003 - 1.030 LAB URINALYSIS - AUTOMATED METHOD 07/20/2025 11:[address] [facility] pH, Urine 6.5 5.0 - 8.0 pH LAB URINALYSIS - AUTOMATED METHOD 07/20/2025 11:[address] [facility] Leukocytes, Urine Large(A) Negative LAB URINALYSIS - AUTOMATED METHOD 07/20/2025 11:[address] [facility] Nitrite, Urine Negative Negative LAB URINALYSIS - AUTOMATED METHOD 07/20/2025 11:[address] [facility] Protein, Urine 30(A) <=Trace mg/dL LAB URINALYSIS - AUTOMATED METHOD 07/20/2025 11:[address] [facility] Glucose, Urine 250(A) Negative mg/dL LAB URINALYSIS - AUTOMATED METHOD 07/20/2025 11:[address] [facility] Ketones, Urine Negative Negative mg/dL LAB URINALYSIS - AUTOMATED METHOD 07/20/2025 11:[address] [facility] Urobilinogen , Urine 0.2 0.2 - 1.0 mg/dL LAB URINALYSIS - AUTOMATED METHOD 07/20/2025 11:[address] [facility] Bilirubin, Urine Negative Negative LAB URINALYSIS - AUTOMATED METHOD 07/20/2025 11:[address] [facility] Blood, Urine Small(A) Negative LAB URINALYSIS - AUTOMATED METHOD 07/20/2025 11:[address] [facility] RBC, Urine 1.0 0 - 4 /HPF LAB URINALYSIS - AUTOMATED METHOD 07/20/2025 11:[address] [facility] WBC, Urine 811.7(H) 0 - 4 /HPF LAB URINALYSIS - AUTOMATED METHOD 07/20/2025 11:[address] [facility] Squamous Epithelial, Urine 19 0 - 60 /LPF LAB URINALYSIS - AUTOMATED METHOD 07/20/2025 11:[address] [facility] Crystals, Urine LT CALCIUM OXALATE /LPF LAB URINALYSIS - AUTOMATED METHOD 07/20/2025 11:[address] [facility] Bacteria, Urine Moderate(A) Negative /HPF LAB URINALYSIS - AUTOMATED METHOD 07/20/2025 11:[address] [facility] Hyaline Casts, Urine 2.1 0 - 3 /LPF LAB URINALYSIS - AUTOMATED METHOD 07/20/2025 11:[address] [facility] Yeast, Urine Present(A) None /HPF LAB URINALYSIS - AUTOMATED METHOD 07/20/2025 11:[address] [facility] Urine Urinary bladder structure / Unknown 07/19/2025 9:00 PM EDT 07/20/2025 9:41 AM EDT us Rogelio Avelar MD LAB URINE ORDERABLES Final Result Performing Organization Address [facility] de Phone Number [facility] [address] [place] [address], [place] [phone] * (ABNORMAL) Culture urine (07/19/2025 9:00 PM EDT) Culture, Urine 50,000-100, 000 CFU/mL Laura glabrata(A) THONG 07/24/2025 10:05 AM EDT [facility] Comment: The organism value for this result has been updated. These results have been appended to the previously preliminary verified report. Edited result: Previously reported as Yeast on 07/23/2025 at 0932 EDT. Urine Urinary bladder structure / Unknown 07/19/2025 9:00 PM EDT 07/20/2025 9:41 AM EDT us Rogelio Avelar MD LAB MICROBIOLOGY - GENERAL ORDERABLES Final Result Performing Organization Address [facility] de Phone Number [facility] [address] [place] [address], [place] [phone] documented in this encounter Visit Diagnoses Diagnosis Urinary tract infection, site not specified Dysuria documented in this encounter Additional Health Concerns Assessment Noted Time PHQ-9 Depression Total Score: 9 01/08/20 25 12:13 PM EDT documented as of this encounter Care Teams Geriatric Nurse Practitioner Relationship Specialty Start Date End Date Danae Sanchez MD [address] [phone] PCP - General Internal Medicine 08/06/24 documented as of this encounter
--- OUTSIDE RECORDS SUMMARY | 2025-08-15 08:53 | XMS_ITS | Encounter Summary ---
Author Organization [facility] Address [address] [place] [address] Care Team Providers Care Gemologist Name Role Phone Danae Sanchez MD Primary Care Provider Encounter Details Date Type Department Care Team (Late Contact Info) Description 08/06/2025 Lab Requisition [facility] - Main Lab [address] [facility] [place] [phone] Rogelio Avlear MD [address] [place] [phone] Anemia, unspecified Social History Tobacco Use Types [...] for your loved ones. For example, child welfare assistant or elderly care for an older adult? [...] Description 10/20/2025 3:30 PM EST Ancillary Procedure [facility] - [place] [address] [place] [phone] 12/01/2025 3:45 PM EDT Office Visit Pulmonology - [place] [address] [facility] [address] [facility] [address] [place] [phone] Akilah Bowen MD [address] [place] [phone] documented as of this encounter Procedures Procedure Name Priority Date/Time Associated Diagnosis Comments COMPLETE BLOOD COUNT Routine 08/07/2025 8:19 AM EST Anemia, unspecified BASIC METABOLIC PANEL Routine 08/07/2025 8:19 AM EST Anemia, unspecified documented in this encounter Results * (ABNORMAL) Basic metabolic panel (08/07/2025 8:19 AM EST) Sodium 140 133 - 145 mmol/L LAB CHEMISTRY METHOD 08/07/2025 12:14 PM [facility] Potassium 3.6 3.5 - 5.5 mmol/L LAB CHEMISTRY METHOD 08/07/2025 12:14 PM [facility] Chloride 102 96 - 110 mmol/L LAB CHEMISTRY METHOD 08/07/2025 12:14 PM [facility] CO2 32 21 - 32 mmol/L LAB CHEMISTRY METHOD 08/07/2025 12:14 PM [facility] Anion Gap 6 3 - 11 LAB CHEMISTRY METHOD 08/07/2025 12:14 PM [facility] Glucose 53(L) 70 - 100 mg/dL LAB CHEMISTRY METHOD 08/07/2025 12:14 PM [facility] BUN 26(H) 5 - 25 mg/dL LAB CHEMISTRY METHOD 08/07/2025 12:14 PM [facility] Creatinine 1.05 0.50 - 1.10 mg/dL LAB CHEMISTRY METHOD 08/07/2025 12:14 PM EST [facility] eGFR 54(L) >=60 mL/min/1. 73m2 LAB CHEMISTRY METHOD 08/07/2025 12:14 PM EST [facility] Comment:Calculation based on the Chronic Kidney Disease Epidemiology Collaboration (CKD-EPI) equation refit without adjustment for race. BUN/Creatinine Ratio 24.8 LAB CHEMISTRY METHOD 08/07/2025 12:14 PM EST [facility] Calcium 8.2(L) 8.5 - 10.5 mg/dL LAB CHEMISTRY METHOD 08/07/2025 12:14 PM [facility] Blood Venous blood specimen / Unknown Venipuncture / Unknown 08/07/2025 8:19 AM EST 08/07/2025 11:21 AM EST us Rogelio Avelar MD LAB BLOOD ORDERABLES Final Result [facility] [address] [place] [address], * (ABNORMAL) Complete blood count (08/07/2025 8:19 AM EST) WBC 11.7(H) 4.8 - 10.8 K/mcL LAB HEMETOLOGY METHOD 08/07/2025 11:34 AM [facility] RBC 3.30(L) 3.80 - 4.80 [facility] LAB HEMETOLOGY METHOD 08/07/2025 11:34 AM [facility] Hemoglobin 9.7(L) 11.5 - 16.0 g/dL LAB HEMETOLOGY METHOD 08/07/2025 11:34 AM [facility] Hematocrit 30.4(L) 35.0 - 47.0 % LAB HEMETOLOGY METHOD 08/07/2025 11:34 AM [facility] MCV 93.3 79.0 - 98.0 FL LAB HEMETOLOGY METHOD 08/07/2025 11:34 AM EST [facility] MCH 29.8 27.0 - 32.0 pcg LAB HEMETOLOGY METHOD 08/07/2025 11:34 AM [facility] MCHC 31.9(L) 32.0 - 37.0 g/dL LAB HEMETOLOGY METHOD 08/07/2025 11:34 AM [facility] RDW 17.7(H) 11.0 - 15.0 % LAB HEMETOLOGY METHOD 08/07/2025 11:34 AM [facility] Platelets 339 130 - 400 K/mcL LAB HEMETOLOGY METHOD 08/07/2025 11:34 AM [facility] MPV 10.4 7.0 - 11.0 FL LAB HEMETOLOGY METHOD 08/07/2025 11:34 AM [facility] NRBC 0.0 <1.0 % LAB HEMETOLOGY METHOD 08/07/2025 11:34 AM [facility] NRBC Absolute 0.00 <0.10 K/mcL LAB HEMETOLOGY METHOD 08/07/2025 11:34 AM [facility] Blood Venous blood specimen / Unknown Venipuncture / Unknown 08/07/2025 8:19 AM EST 08/07/2025 11:18 AM EST Rogelio Avelar MD LAB BLOOD ORDERABLES Final Result [facility] [address] [place] [address], documented in this encounter Visit Diagnoses Diagnosis Anemia, unspecified documented in this encounter Additional Health Concerns Assessment Noted Time PHQ-9 Depression Total Score: 9 01/08/20 25 12:13 PM EDT documented as of this encounter Care Teams Gemologist Relationship Specialty Start Date End Date Danae Sanchez MD [address] [phone] PCP - General Internal Medicine 08/06/24 documented as of this encounter
--- OUTSIDE RECORDS SUMMARY | 2025-08-15 08:53 | XMS_ITS | Encounter Summary ---
Author Organization [facility] Address [address] [place] [address] Care Team Providers Care Hand Brim Ironer Name Role Phone Danae Sanchez MD Primary Care Provider [phone] Encounter Details Date Type Department Care Team ([facility] Contact Info) Description 07/23/2025 Lab Requisition [facility] - Main Lab [address] [facility] [place] [phone] Rogelio Avelar MD [address] [place] [phone] Anemia, unspecified Social History Tobacco Use Types [...] your loved ones. For example, child life assistant or elderly care for an older [...] Description 10/20/2025 3:30 PM EST Ancillary Procedure [facility] - [address] [place] [phone] 12/01/2025 3:45 PM EDT Office Visit Pulmonology - [place] [address] [facility] [address] [place] [phone] Akilah Bowen MD [address] [place] [phone] documented as of this encounter Procedures Procedure Name Priority Date/Time Associated Diagnosis Comments COMPLETE BLOOD COUNT Routine 07/24/2025 7:40 AM EDT Anemia, unspecified BASIC METABOLIC PANEL Routine 07/24/2025 7:40 AM EDT Anemia, unspecified documented in this encounter Results * (ABNORMAL) Basic metabolic panel (07/24/2025 7:40 AM EDT) Sodium 138 133 - 145 mmol/L LAB CHEMISTRY METHOD 07/24/2025 12:16 PM [facility] Potassium 3.4(L) 3.5 - 5.5 mmol/L LAB CHEMISTRY METHOD 07/24/2025 12:16 PM [facility] Chloride 101 96 - 110 mmol/L LAB CHEMISTRY METHOD 07/24/2025 12:16 PM [facility] CO2 30 21 - 32 mmol/L LAB CHEMISTRY METHOD 07/24/2025 12:16 PM [facility] Anion Gap 7 3 - 11 LAB CHEMISTRY METHOD 07/24/2025 12:16 PM [facility] Glucose 55(L) 70 - 100 mg/dL LAB CHEMISTRY METHOD 07/24/2025 12:16 PM [facility] BUN 30(H) 5 - 25 mg/dL LAB CHEMISTRY METHOD 07/24/2025 12:16 PM [facility] Creatinine 0.94 0.50 - 1.10 mg/dL LAB CHEMISTRY METHOD 07/24/2025 12:16 PM EDT [facility] eGFR 62 >=60 mL/min/1. 73m2 LAB CHEMISTRY METHOD 07/24/2025 12:16 PM T [facility] Comment:Calculation based on the Chronic Kidney Disease Epidemiology Collaboration (CKD-EPI) equation refit without adjustment for race. BUN/Creatinine Ratio 31.9 LAB CHEMISTRY METHOD 07/24/2025 12:16 PM T [facility] Calcium 8.8 8.5 - 10.5 mg/dL LAB CHEMISTRY METHOD 07/24/2025 12:16 PM [facility] Blood Venous blood specimen / Unknown Venipuncture / Unknown 07/24/2025 7:40 AM EDT 07/24/2025 10:10 AM EDT Rogelio Avelar MD LAB BLOOD ORDERABLES Final Result [facility] [address] [place] [address], * (ABNORMAL) Complete blood count (07/24/2025 7:40 AM EDT) WBC 11.3(H) 4.8 - 10.8 K/mcL LAB HEMETOLOGY METHOD 07/24/2025 11:11 AM [facility] RBC 3.50(L) 3.80 - 4.80 M/mcL LAB HEMETOLOGY METHOD 07/24/2025 11:11 AM [facility] Hemoglobin 10.2(L) 11.5 - 16.0 g/dL LAB HEMETOLOGY METHOD 07/24/2025 11:11 AM [facility] Hematocrit 32.2(L) 35.0 - 47.0 % LAB HEMETOLOGY METHOD 07/24/2025 11:11 AM T [facility] MCV 92.5 79.0 - 98.0 FL LAB HEMETOLOGY METHOD 07/24/2025 11:11 AM EDT [facility] MCH 29.3 27.0 - 32.0 pcg LAB HEMETOLOGY METHOD 07/24/2025 11:11 AM EDT [facility] MCHC 31.7(L) 32.0 - 37.0 g/dL LAB HEMETOLOGY METHOD 07/24/2025 11:11 AM EDT [facility] RDW 18.1(H) 11.0 - 15.0 % LAB HEMETOLOGY METHOD 07/24/2025 11:11 AM EDT [facility] Platelets 275 130 - 400 K/mcL LAB HEMETOLOGY METHOD [facility]/24[facility] MPV 10.9 7.0 - 11.0 FL LAB HEMETOLOGY METHOD 07/24/2025 11:11 AM EDT [facility] NRBC 0.0 <1.0 % LAB HEMETOLOGY METHOD 07/24/2025 11:11 AM EDT [facility] NRBC Absolute 0.00 <0.10 K/mcL LAB HEMETOLOGY METHOD 07/24/2025 11:11 AM [facility] Blood Venous blood specimen / Unknown Venipuncture / Unknown 07/24/2025 7:40 AM EDT 07/24/2025 10:11 AM EDT us Rogelio Avelar MD LAB BLOOD ORDERABLES Final Result [facility] [address] [place] [address], documented in this encounter Visit Diagnoses Diagnosis Anemia, unspecified documented in this encounter Additional Health Concerns Assessment Noted Time PHQ-9 Depression Total Score: 9 01/08/20 25 12:13 PM EDT documented as of this encounter Care Teams Hand Brim Ironer Relationship Specialty Start Date End Date Danae Sanchez MD [address] [place] [phone] PCP - General Internal Medicine 08/06/24 documented as of this encounter
== END 2025-08-15 08:49 | disposition home or self-care (01) ==
LOC: CF 08:48
DX: Z13.89 Encounter for screening for other disorder (principal)

== ENCOUNTER 2025-09-10 12:35 | Outpatient (REF) | payer MEDICARE, OTHER, SELFPAY ==
--- OUTSIDE RECORDS SUMMARY | 2025-09-10 11:40 | XMS_ITS | Encounter Summary ---
Author Organization [facility] [place] [address] Care Team Providers Care Nylon Hot Wire Cutter Name Role Phone Danae Sanchez MD Primary Care Provider [phone] Encounter Details Date Type Department Care Team (Latest Contact Info) Description 09/10/2025 11:40 AM EST - 09/10/2025 11:59 PM [facility] Hospital Encounter [facility] Xray [address] [place] [phone] Subacute cough Discharge Disposition: Home or Self Care Social History Tobacco Use Types Packs/Day Years [...] care for your loved ones. For example, children's minister or elderly care for an older adult? [...] PM EST documented as of this encounter Medications at Time of Discharge acetaminophen (TYLENOL) 500 mg tablet Take 500 mg by mouth every 6 hours as needed. Advair HFA 230-21 mcg/actuation inhalerIndication s:ILD (interstitial lung disease) ([facility] V24, [facility] V28),Chronic obstructive pulmonary disease, unspecified COPD type ([facility] V24, [facility] V28) INHALE 2 PUFFS BY MOUTH 2 TIMES A DAY. RINSE MOUTH WITH WATER AFTER USE TO REDUCE AFTERTASTE AND INCIDENCE OF CANDIDIASIS. DO NOT SWALLOW. 36 each 3 03/10/2025 albuterol HFA (PROAIR HFA ; PROVENTIL HFA ; VENTOLIN HFA) 90 mcg/actuation inhalerIndication s:ILD (interstitial lung disease) ([facility] V24, [facility] V28),Chronic obstructive pulmonary disease, unspecified COPD type ([facility] V24, [facility] V28) Inhale 2 puffs by mouth every 6 (six) hours if needed for wheezing. 3 each 3 09/25/2024 6 aspirin 81 mg EC tablet Take 81 mg by mouth daily. budesonide-formot Roscoe (Breyna) 160-4.5 mcg/actuation inhaler Inhale 2 puffs by mouth 2 (two) times a day. Rinse mouth with water after use to reduce aftertaste and incidence of candidiasis. Do not swallow. 3 each 3 03/10/2025 6 buPROPion XL (WELLBUTRIN XL) 150 mg 24 hr tablet Take 1 tablet (150 mg total) by mouth 1 (one) time each day in the morning. Do not crush, chew, or split. 90 each 2 08/26/2025 carvediloL (COREG) 3.125 mg tablet Take 1 tablet (3.125 mg total) by mouth 2 (two) times a day with meals. 180 tablet 3 08/26/2025 cyclobenzaprine (FLEXERIL) 5 mg tablet TAKE 1 TABLET BY MOUTH AT BEDTIME NEEDED FOR MUSCLE SPASM(S) 05/16/2024 empagliflozin (Jardiance) 10 mg tablet Take 1 tablet (10 mg total) by mouth 1 (one) time each day in the morning. 90 tablet 2 08/26/2025 FLUoxetine (PROzac) 40 mg capsule Take 1 capsule (40 mg total) by mouth 1 (one) time each day. 90 capsule 3 08/26/2025 fluticasone furoate-vilantero L (Breo Ellipta) 200-25 mcg/dose inhaler Inhale 1 puff by mouth 1 (one) time each day. 1 each 11 04/23/2025 fluticasone propionate (FLONASE) 50 mcg/actuation nasal spray Administer 2 sprays into each nostril 1 (one) time each day. 48 g 1 01/10/2025 fluticasone-umecl idinium-vilantero l (Trelegy Ellipta) 100-62.5-25 mcg inhaler Inhale 1 puff (100 mcg total) by mouth 1 (one) time each day. Rinse mouth with water after use to reduce aftertaste and incidence of candidiasis. Do not swallow. 3 each 3 07/31/2025 furosemide (LASIX) 20 mg tablet Take 1 tablet (20 mg total) by mouth 1 (one) time each day. 90 each 2 08/26/2025 gabapentin (NEURONTIN) 300 mg capsule Take 1 capsule (300 mg total) by mouth 2 (two) times a day. 180 each 3 08/26/2025 levothyroxine (SYNTHROID, LEVOTHROID) 75 mcg tablet Take 1 tablet (75 mcg total) by mouth 1 (one) time each day. 90 each 2 08/26/2025 losartan (COZAAR) 25 mg tablet Take 1 tablet (25 mg total) by mouth 1 (one) time each day. 90 tablet 3 08/26/2025 oxyBUTYnin (DITROPAN) 5 mg tablet Take 1 tablet (5 mg total) by mouth 2 (two) times a day. 180 tablet 3 2024 pravastatin (PRAVACHOL) 20 mg tablet Take 1 tablet (20 mg total) by mouth 1 (one) time each day. 90 tablet 3 03/20/2025 senna-docusate (PERICOLACE) 8.6-50 mg per tablet Take 1 tablet by mouth 1 (one) time each day. 90 each 3 01/10/2025 timoloL maleate 0.5 % drops, once daily apply 1 Drop to the eye daily. tiotropium (Spiriva Respimat) 2.5 mcg/actuation inhalation sprayIndications: ILD (interstitial lung disease) (CMS/HCC V24, [facility] V28),Chronic obstructive pulmonary disease, unspecified COPD type ([facility] V24, [facility] V28) Inhale 2 puffs by mouth 1 (one) time each day. 3 each 3 03/10/2025 6 tiotropium (SPIRIVA RESPIMAT) 2.5 mcg/actuation inhalation sprayIndications: Pulmonary emphysema, unspecified emphysema type Inhale 2 puffs by mouth 1 (one) time each day. 1 each 11 04/02/2025 6 traZODone (DESYREL) 100 mg tablet Take 1 tablet (100 mg total) by mouth at bedtime. at bedtime. 90 tablet 3 08/26/2025 documented as of this encounter Discharge Disposition Disposition Code Departure Means Destination Home or Self Care documented in this encounter Plan of Treatment Upcoming Encounters Date Type Department Care Team (Late st Contact Info) Description 09/15/2025 3:15 PM EST [facility]ointment [facility] [address] [place] [phone] 10/20/2025 3:30 PM EST Ancillary Procedure [facility] - [facility] [address] [facility] [address] [place] [address] 11/26/2025 2:45 PM EST Office Visit Internal Medicine - [place] [address] [facility] [address] [place] [phone] Danae Sanchez MD [address] [place] [phone] 12/01/2025 3:45 PM EDT Office Visit Pulmonology - [place] [address] [facility] [address] [place] [phone] Akilah Bowen MD [address] [place] [phone] documented as of this encounter Procedures Procedure Name Priority Date/Time Associated Diagnosis Comments XR CHEST 2 VIEWS Routine 09/10/2025 12:1 7 PM EST Subacute cough documented in this encounter Results * XR Chest 2 Views (09/10/2025 12:17 PM EST) Anatomical Region Laterality Modality Body Radiographic Genet ging 09/11/2025 7:51 AM EST Impressions 09/11/2025 7:55 AM EST No acute pulmonary disease and no change since 11/02/2021. Postoperative changes are again present in the right hemithorax with volume loss. Diffuse interstitial prominence consistent with interstitial fibrosis is stable. The patient is seen to have undergone total reverse left shoulder replacement surgery since the prior examination. Code 53405 -------- FINAL REPORT -------- Dictated By: Krishna Jain Dictated Date: 09/11/2025 07:51 ET Assigned Physician: Krishna Jain Reviewed and Electronically Signed By: Krishna Jain Signed Date: 09/11/2025 07:55 ET Workstation ID: [id number] Transcribed By: Self Edit Transcribed Date: 09/11/2025 07:51 ET Narrative 09/11/2025 7:55 AM EST HISTORY: The patient is a 79-year-old female with cough. Information provided with prior studies indicates that the patient underwent right upper, middle, and lower lobe wedge resection on 10/20/2021. FINDINGS: PA and lateral radiographs of the chest again demonstrate single surgical anchor in the right humeral head is also seen on the most recent prior chest radiograph performed 11/02/2021. The patient is seen to have undergone total reverse left shoulder replacement surgery since the prior examination. The cardiac silhouette is within normal limits. The thoracic aorta is calcified. Surgical sutures are again present in the right midlung. Diffuse interstitial prominence consistent with fibrosis is unchanged. Density in the lateral aspect of the right midlung adjacent to the sutures consistent with postoperative scarring is stable. Again seen is elevation of the right hemidiaphragm consequent likely to surgery. There is no consolidation, mass, pulmonary vascular congestion, or pleural effusion. Procedure Note Krishna Jain MD - 09/11/2025 HISTORY: The patient is a 79-year-old female with cough. Informationprovided with prior studies indicates that the patient underwent rightupper, middle, and lower lobe wedge resection on 10/20/2021. FINDINGS: PA and lateral radiographs of the chest again demonstrate singlesurgical anchor in the right humeral head is also seen on the most recentprior chest radiograph performed 11/02/2021. The patient is seen to haveundergone total reverse left shoulder replacement surgery since the priorexamination. The cardiac silhouette is within normal limits. The thoracicaorta is calcified. Surgical sutures are again present in the rightmidlung. Diffuse interstitial prominence consistent with fibrosis isunchanged. Density in the lateral aspect of the right midlung adjacent tothe sutures consistent with postoperative scarring is stable. Again seenis elevation of the right hemidiaphragm consequent likely to surgery.There is no consolidation, mass, pulmonary vascular congestion, or pleuraleffusion. IMPRESSION: No acute pulmonary disease and no change since 11/02/2021. Postoperativechanges are again present in the right hemithorax with volume loss.Diffuse interstitial prominence consistent with interstitial fibrosis isstable. The patient is seen to have undergone total reverse left shoulderreplacement surgery since the prior examination. Code 33345 -------- FINAL REPORT -------- Dictated By: Krishna Jain Dictated Date: 09/11/2025 07:51 ET Assigned Physician: Krishna Jain Reviewed and Electronically Signed By: Krishna Jain Signed Date: 09/11/2025 07:55 ET Workstation ID: [id number] Transcribed By: Self Edit Transcribed Date: 09/11/2025 07:51 ET Danae Sanchez MD IMG XR PROCEDURES Final Result documented in this encounter Visit Diagnoses Diagnosis Subacute cough documented in this encounter Additional Health Concerns Assessment Noted Time PHQ-9 Depression Total Score: 9 01/08/20 25 12:13 PM EDT documented as of this encounter Care Teams Nylon Hot Wire Cutter Relationship Specialty Start Date End Date Danae Sanchez MD [address] [place] [phone] PCP - General Internal Medicine 08/06/24 documented as of this encounter
--- OUTSIDE RECORDS SUMMARY | 2025-09-11 16:24 | XMS_ITS | Encounter Summary ---
Author Organization [facility] Address [address] [place] [address] Care Team Providers Care Grinder Machine Knife Setter Name Role Phone Danae Sanchez MD Primary Care Provider [phone] Reason for Visit * Reason Onset Date Comments Request For Order(s) 09/09/2025 Ebony COLEMAN Cert 08/22/25-10/20/25 Plan Of Care Encounter Details Date Type Department Care Team ([facility] Contact Info) Description 09/09/2025 Telephone Internal Medicine - [place] [address] [facility] [address] [place] [address] Giovanna Graham MA Social History Tobacco Use Types Packs/Day Years [...] care for your loved ones. For example, childcare worker or elderly care for an older [...] PM EST documented as of this encounter Progress Notes * Giovanna Graham MA - 09/11/2025 7:44 AM EST Scanned into chart and faxed to Ebony [phone] * Giovanna Graham MA - 09/09/2025 6:47 AM EST [facility]ony [facility] Cert 08/22/25-10/20/25 Plan Of Care Please sign & documented in this encounter Plan of Treatment Upcoming Encounters Date Type Department Care Team (Late st Contact Info) Description 09/15/2025 3:15 PM EST Appointment [facility] [address] [place] [phone] 10/20/2025 3:30 PM EST Ancillary Procedure [facility] - [facility] [address] [facility] [address] [place] [address] 11/26/2025 2:45 PM EST Office Visit Internal Medicine - [place] 175 [facility] 200 [place] [phone] Danae Sanchez MD [address] [place] [phone] 12/01/2025 3:45 PM EDT Office Visit Pulmonology - [place] [address] [facility] [address] [place] [phone] Akilah Bowen MD [address] [place] [phone] documented as of this encounter Visit Diagnoses Not on filedocumented in this encounter Additional Health Concerns Assessment Noted Time PHQ-9 Depression Total Score: 9 01/08/20 25 12:13 PM EDT documented as of this encounter Care Teams Grinder Machine Knife Setter Relationship Specialty Start Date End Date Danae Sanchez MD [address] [facility] [address] [place] [phone] PCP - General Internal Medicine 08/06/24 documented as of this encounter
--- OUTSIDE RECORDS SUMMARY | 2025-09-11 16:24 | XMS_ITS | Clinical Summary ---
Author Organization [facility] Address [address] [place] [address] Care Team Providers Care Spray Drier Operator Helper Name Role Phone Danae Sanchez MD Primary Care Provider [phone] Allergies No known active allergies Medications albuterol [...] Monday and . 05/12/20 Active nystatin (MYCOSTATIN) [id number] UNIT/ML suspensionIndicat ions:S/P reverse total shoulder arthroplasty, [...] Assessment & Plan (05/11/2025 1:21 PM EDT): INSPECTOR RAG SORTING evaluated the patient and fees test was done on 05/09/2000 and and recommended dysphagia diet level 6 Assessment & Plan (05/10/2025 12:58 PM EDT): INSPECTOR RAG SORTING evaluated the patient and fees test was done yesterday and recommended dysphagia diet level 6 Assessment & Plan (05/09/2025 3:08 PM EDT): INSPECTOR RAG SORTING evaluated the patient and fees test was done yesterday and recommended dysphagia diet level 6 Assessment & Plan (05/08/2025 4:42 PM EDT): INSPECTOR RAG SORTING reevaluated patient and advise keep NPO and FEES test Addendum : Fees test was done and recommended dysphagia diet level 6 Assessment & Plan (05/07/2025 1:32 PM EDT): INSPECTOR RAG SORTING evaluated the patient .during evaluation, patient showed signs and symptoms of aspiration and desaturated to the high 80s with p.o..INSPECTOR RAG SORTING recommended FEES or MBS . However patient desaturated so we are holding fees and MBS for now. Keep n.p.o. INSPECTOR RAG SORTING reevaluation tomorrow Anxiety and depression 05/07/2025 Assessment [...] surgical treatment follow-up with Ortho discharge planning long term facility when able Acute respiratory failure with [...] (05/11/2025 1:21 PM EDT): On dysphagia diet, INSPECTOR RAG SORTING is following Assessment & Plan (05/10/2025 12:58 PM EDT): On dysphagia diet, INSPECTOR RAG SORTING is following Assessment & Plan (05/09/2025 3:08 PM EDT): On dysphagia diet, INSPECTOR RAG SORTING is following Assessment & Plan (05/08/2025 1:48 PM EDT): NPO status, INSPECTOR RAG SORTING is following Assessment & Plan (05/07/2025 1:32 PM EDT): NPO status, INSPECTOR RAG SORTING is following Assessment & Plan (05/06/2025 12:22 [...] when medically stable to go to a long term facility with outpatient follow-up with orthopedic surgery [...] 7mm. Last chest CT 12/10/24. [place] [facility] [place], Dr. Maribell Fischer. Pulmonary hypertension [...] Patient to follow up with PCP or rack puller for continued management of hypothyroidism as previously [...] with no obvious increased WOB. Follows with Dorr Operator. Depression 07/27/2022 Assessment & Plan (05/05/2025 11:18 AM EDT): Home meds Assessment & Plan (05/04/2025 11:06 AM EDT): Stable Assessment & Plan (05/03/2025 12:38 PM EDT): Continue home meds Fibrosis of lung 07/27/2022 Assessment & Plan (04/24/2025 8:01 AM EDT): Follows with analytical lab analyst. Has chronic HAWLEY. No use of supplemental oxygen. SpO2 97% on room air. In process of obtaining last echo. Cardiomyopathy 03/16/2022 Overview (04/24/2025): Last Assessment & Plan: Probably from left bundle branch block. Left ventricular systolic function was mildly reduced. I will discontinue hydrochlorothiazide and amlodipine. We will start low-dose losartan. Would like to arrange stress test. Assessment & Plan (04/24/2025 8:08 AM EDT): Follows with energy project manager regularly. Her last echocardiogram 07/26/2021, EF of [...] drink = 0.6 oz pur e alcohol) [facility] Utilities Answer Date Recorded In the past 12 months has th e [employer], gas, oil, or water [employer] threatened to shut off services in your [...] any time in the past 12 m [facility], were you homeless or living in a nursing home (including now)? No 05/12/2025 Comments No Sex [...] this topic Medical Devices Implanted Type Area Machine Stemmer Device Identifier Shelf Expiration Date Model / Serial / Lot 6192-1-001 Cement Bone Smpx P Speedset Radopq Sterl - [id number] Implanted:Qty : 1 on 05/01/2025 by Glenys Hernandez MD at [facility] Cement Left: Shoulder [employer] JACLYN [id number] 07/25/2026 6192-1-0 01 / / [id number] 6192-1-001 Cement Bone Smpx P Speedset Radopq Sterl - [id number] Implanted:Qty : 1 on 05/01/2025 by Glenys Hernandez MD at [facility] Cement Left: Shoulder [employer] JACLYN [id number] 07/25/2026 6192--0 01 / / [id number] Insert Humeral 33mm Univers Revers +6mm Shldr Linr Cnstrn - [id number] Implanted:Qty : 1 on 05/01/2025 by Glenys Hernandez MD at [facility] Joint Prosthesis Left: Shoulder [employer] [id number] 05/25/2029 AR-9503X S-06C / / [id number] Lat Component Glenoid 33mm 24mm +4 Lateralize Glenosphere Taper - [id number] Implanted:Qty : 1 on 05/01/2025 by Glenys Hernandez MD at [facility] Joint Prosthesis Left: Shoulder [employer] [id number] 12/23/2029 AR-9564- 2433-LAT / / [id number] Ar-9561-25s Screw Baseplate 25mm Central Mdlr Sterl - [id number] Implanted:Qty : 1 on 05/01/2025 by Glenys Hernandez MD at [facility] Joint Prosthesis Left: Shoulder [employer] [id number] 10/25/2029 AR-9561- 25S / / [id number] Baseplate Glenoid 24mm Arthx +2mm Shldr Mdlr Lateralize - [id number] Implanted:Qty : 1 on 05/01/2025 by Glenys Hernandez MD at [facility] Joint Prosthesis Left: Shoulder [employer] [id number] 07/25/2029 AR-9560- 24-2 / / [id number] c Cup Humeral 33mm Univers Revers Neutral Suture - [id number] Implanted:Qty : 1 on 05/01/2025 by Glenys Hernandez MD at [facility] Joint Prosthesis Left: Shoulder [employer] [id number] 09/24/2028 AR-9502F -33CPC / / [id number] Ar-9501-06p Stem Humeral Arthx Univers Revers 6 Shldr Sterl - [id number] Implanted:Qty : 1 on 05/01/2025 by Glenys Hernandez MD at [facility] Joint Prosthesis Left: Shoulder [employer] [id number] 04/24/2028 AR-9501- 06P / / [id number] Ar-9563-20 Screw Bone Glenoid Perph Univers Revers 20mm 5.5mm Lock - [id number] Implanted:Qty : 1 on 05/01/2025 by Glenys Hernandez MD at [facility] Screw Left: Shoulder [employer] [id number] 08/24/2029 AR-9563- 20 / / [id number] Ar-9563-16 Screw Bone Glenoid Perph Univers Revers 16mm 5.5mm Lock - [id number] Implanted:Qty : 1 on 05/01/2025 by Glenys Hernandez MD at [facility] Screw Left: Shoulder [employer] [id number] 10/25/2029 AR-9563- 16 / / [id number] Ar-9563-36 Screw Bone Univers Revers L36 Mm Od5.5 Mm Glenoid Peripheral - [id number] Implanted:Qty : 1 on 05/01/2025 by Glenys Hernandez MD at [facility] Screw Left: Shoulder [employer] [id number] 01/22/2029 AR-9563- 36 / / [id number] Ar-9563-32 Screw Bone Glenoid Perph Univers Revers 32mm 5.5mm Lock - [id number] Implanted:Qty : 1 on 05/01/2025 by Glenys Hernandez MD at [facility] Screw Left: Shoulder [employer] [id number] 08/24/2029 NV-9563- 32 / / [id number] Insurance [employer] [facility] Advance Directives * Full Code (Latest Code Status on File) Date Activated Date Inactivated Comments 05/01/2025 6:51 PM Care Teams Spray Drier Operator Helper Relationship Specialty Start Date End Date Danae Sanchez MD [address] [facility] [address] [place] [address] PCP - General 04/01/25
--- OUTSIDE RECORDS SUMMARY | 2025-09-11 16:24 | XMS_ITS | Encounter Summary ---
Author Organization [facility] Address [address] [place] [address] Care Team Providers Care Big Data Software Engineer Name Role Phone Danae Sanchez MD Primary Care Provider [phone] Encounter Details Date Type Department Care Team ([facility] Contact Info) Description 07/17/2025 Lab Requisition [facility] - Main Lab [address] [facility] [place] [phone] Rogelio Avelar MD [address] [place] [phone] Anemia, unspecified Social History Tobacco Use Types [...] your loved ones. For example, child welfare worker or elderly care for an older [...] PM EST Appointment [facility] [address] [place] [phone] 10/20/2025 3:30 PM EST Ancillary Procedure [facility] - [address] [place] [phone] 11/26/2025 2:45 PM EST Office Visit Internal Medicine - [place] 175 [facility] [address] [place] [phone] Danae Sanchez MD [address] [place] [phone] 12/01/2025 3:45 PM EDT Office Visit Pulmonology - [place] 175 [facility] [address] [place] [phone] Akilah Bowen MD [address] [place] [phone] documented as of this encounter Procedures Procedure Name Priority Date/Time Associated Diagnosis Comments COMPLETE BLOOD COUNT Routine 07/17/2025 10:02 AM EDT Anemia, unspecified COMPREHENSIVE METABOLIC PANEL Routine 07/17/2025 10:02 AM EDT Anemia, unspecified documented in this encounter Results * (ABNORMAL) Comprehensive metabolic panel (07/17/2025 10:02 AM EDT) Sodium 138 133 - 145 mmol/L LAB CHEMISTRY METHOD 07/17/2025 2:45 PM EDT [facility] Potassium 3.6 3.5 - 5.5 mmol/L LAB CHEMISTRY METHOD 07/17/2025 2:45 PM EDT [facility] Chloride 98 96 - 110 mmol/L LAB CHEMISTRY METHOD 07/17/2025 2:45 PM EDT [facility] CO2 30 21 - 32 mmol/L LAB CHEMISTRY METHOD 07/17/2025 2:45 PM EDT [facility] Anion Gap 10 3 - 11 LAB CHEMISTRY METHOD 07/17/2025 2:45 PM [facility] Glucose 67(L) 70 - 100 mg/dL LAB CHEMISTRY METHOD 07/17/2025 2:45 PM [facility] BUN 27(H) 5 - 25 mg/dL LAB CHEMISTRY METHOD 07/17/2025 2:45 PM [facility] Creatinine 1.33(H) 0.50 - 1.10 mg/dL LAB CHEMISTRY METHOD 07/17/2025 2:45 PM [facility] eGFR 41(L) >=60 mL/min/1. 73m2 LAB CHEMISTRY METHOD 07/17/2025 2:45 PM [facility] Comment:Calculation based on the Chronic Kidney Disease Epidemiology Collaboration (CKD-EPI) equation refit without adjustment for race. BUN/Creatinine Ratio 20.3 LAB CHEMISTRY METHOD 07/17/2025 2:45 PM [facility] Calcium 9.2 8.5 - 10.5 mg/dL LAB CHEMISTRY METHOD 07/17/2025 2:45 PM [facility] AST (SGOT) 23 10 - 42 unit/L LAB CHEMISTRY METHOD 07/17/2025 2:45 PM [facility] ALT (SGPT) 13 10 - 60 unit/L LAB CHEMISTRY METHOD 07/17/2025 2:45 PM [facility] Alkaline Phosphatase 65 42 - 121 unit/L LAB CHEMISTRY METHOD 07/17/2025 2:45 PM [facility] Total Protein 5.5(L) 6.0 - 8.0 g/dL LAB CHEMISTRY METHOD 07/17/2025 2:45 PM [facility] Albumin 2.5(L) 3.2 - 5.0 g/dL LAB CHEMISTRY METHOD 07/17/2025 2:45 PM [facility] Total Bilirubin 0.3 0.0 - 1.4 mg/dL LAB CHEMISTRY METHOD 07/17/2025 2:45 PM EDT [facility] Blood Venous blood specimen / Unknown Venipuncture / Unknown 07/17/2025 10:02 AM EDT 07/17/2025 12:10 PM EDT us Rogelio Avelar MD LAB BLOOD ORDERABLES Final Result [facility] [address] [place] [address], * (ABNORMAL) Complete blood count (07/17/2025 10:02 AM EDT) WBC 13.0(H) 4.8 - 10.8 K/mcL LAB HEMETOLOGY METHOD 07/17/2025 12:34 PM EDT [facility] RBC 3.90 3.80 - 4.80 M/mcL LAB HEMETOLOGY METHOD 07/17/2025 12:34 PM EDT [facility] Hemoglobin 11.4(L) 11.5 - 16.0 g/dL LAB HEMETOLOGY METHOD 07/17/2025 12:34 PM EDT [facility] Hematocrit 36.9 35.0 - 47.0 % LAB HEMETOLOGY METHOD 07/17/2025 12:34 PM EDT [facility] MCV 95.3 79.0 - 98.0 FL LAB HEMETOLOGY METHOD 07/17/2025 12:34 PM EDT [facility] MCH 29.5 27.0 - 32.0 pcg LAB HEMETOLOGY METHOD 07/17/2025 12:34 PM EDT [facility] MCHC 30.9(L) 32.0 - 37.0 g/dL LAB HEMETOLOGY METHOD [facility]17[facility] RDW 18.9(H) 11.0 - 15.0 % LAB HEMETOLOGY METHOD 07/17/2025 12:34 PM EDT [facility] Platelets 252 130 - 400 K/mcL LAB HEMETOLOGY METHOD 07/17/2025 12:34 PM EDT [facility] MPV 10.6 7.0 - 11.0 FL LAB HEMETOLOGY METHOD 07/17/2025 12:34 PM EDT [facility] NRBC 0.0 <1.0 % LAB HEMETOLOGY METHOD 07/17/2025 12:34 PM EDT [facility] NRBC Absolute 0.00 <0.10 K/mcL LAB HEMETOLOGY METHOD 07/17/2025 12:34 PM EDT [facility] Blood Venous blood specimen / Unknown Venipuncture / Unknown 07/17/2025 10:02 AM EDT 07/17/2025 12:10 PM EDT us Rogelio Avelar MD LAB BLOOD ORDERABLES Final Result [facility] [address] [place] [address], documented in this encounter Visit Diagnoses Diagnosis Anemia, unspecified documented in this encounter Additional Health Concerns Assessment Noted Time PHQ-9 Depression Total Score: 9 01/08/20 25 12:13 PM EDT documented as of this encounter Care Teams Big Data Software Engineer Relationship Specialty Start Date End Date Danae Sanchez MD [address] [phone] PCP - General Internal Medicine 08/06/24 documented as of this encounter
--- OUTSIDE RECORDS SUMMARY | 2025-09-11 16:24 | XMS_ITS | Encounter Summary ---
Author Organization [facility] Address [address] [place] [address] Care Team Providers Care Engineer Rf Deployment Name Role Phone Danae Sanchez MD Primary Care Provider Reason for Visit * Reason Onset Date Comments concerns 09/11/2025 Encounter Details Date Type Department Care Team ([facility] Contact Info) Description 09/11/2025 Telephone Internal Medicine - [place] [address] [facility] [address] [place] [address] Danae Sanchez MD [address] [place] [phone] Social History Tobacco Use Types Packs/Day Years [...] care for your loved ones. For example, director child development center or elderly care for an older adult? [...] as of this encounter Progress Notes * Cynthia Correa RN - 09/11/2025 3:28 PM EST Call to [place] Beck # [phone], left message for her to call us back * Danae Sancehz MD - 09/11/2025 3:26 PM EST Monitor her and take her to the emergency room if the think it is necessary Not let it go too long * Cynthia Correa RN - 09/11/2025 2:02 PM EST *Dr. Sanchez, pt having sudden loss of appetite and motivation - has not eaten since Monday - not even drinking ensure - I spoke w/ pt and offered her appt, she declines, says she is fine - not sureif you had any other recommendation? Call to [place] Beck # [phone], spoke w/ her. Pt symptoms started Monday +no appetite - has not eaten since Monday - the pt is taking small sips of ensure, but sometimes not even that +not doing her exercise - and having no motivation or care to do so (previously she was doing her exercises without issue) and the pt herself has no explanation for her lack of interest +weight loss - was 106 today, last week was 113 The [facility] spoke w/ the pt and her about this. The pt denies having an issue, but her is concerned. The [facility] says the pt does not seem to care at all about her symptoms. Her vitals were normal and stable. She is drinking well and staying hydrated. This all started very suddenly since Monday. Had one episode of low glucose, but otherwise her sugar is stable Call to pt's # [phone], left message for him to call us back Call to pt # [phone], spoke w/ her. I offered her an appt for tomorrow, but she declines, does not want to be seen. Says I am fine. * Savannah Leblanc - 09/11/2025 1:56 PM EST Patients visiting nurse radha called stating that patients said patient has been fighting him , and had no appetite since last Monday , she is losing weight rapidly , also not doing her exercises she's supposed to be doing. Please advise Visiting nurse number [phone] documented in this encounter Plan of Treatment Upcoming Encounters Date Type Department Care Team (Late st Contact Info) Description 09/15/2025 3:15 PM EST Appointment [facility] at [facility] [address] [place] [phone] 10/20/2025 3:30 PM EST Ancillary Procedure [facility] - [facility] [address] [facility] [address] [place] [phone] 11/26/2025 2:45 PM EST Office Visit Internal Medicine - [place] [address] [phone] Danae Sanchez MD [address] [place] [phone] 12/01/2025 3:45 PM EDT Office Visit Pulmonology - [place] 175 [facility] [address] [place] [phone] Akilah Bowen MD [address] [place] [phone] documented as of this encounter Visit Diagnoses Not on filedocumented in this encounter Additional Health Concerns Assessment Noted Time PHQ-9 Depression Total Score: 9 01/08/20 25 12:13 PM EDT documented as of this encounter Care Teams Engineer Rf Deployment Relationship Specialty Start Date End Date Danae Sanchez MD [address] [phone] PCP - General Internal Medicine 08/06/24 documented as of this encounter
--- OUTSIDE RECORDS SUMMARY | 2025-09-11 16:24 | XMS_ITS | Data Portability ---
Author Organization [place] [facility] [place] Address [address] [place] [address] Care Team Providers Care Urology Physician Name Role Phone EDDA HAIR Referring Provider [phone] EDDA HAIR Primary Care Provider Assessment Encounter Date Assessment Date Assessment LastModified [...] degrees. The knees are stable within those [id number]. The alignment of the left knee is [...] more view 2023 024 [email or web address] [facility], [address], [place], [address], 4 14:30:49 XR, knee, 4 or more view 2023 024 [email or web address] [facility] [place] [facility], [address], [place], [address], 4 14:30:49 XR, knee, 3 view 2022 023 [email or web address] [facility] [place] [facility], [address], [place], [address], 3 07:56:41 Medication Orders Marcaine (PF) 0.5 % (5 mg/mL) injection solution 2023 024 [email or web address] [id number], [address] [place] [address], [address], 4 14:30:49 lidocaine (PF) 100 mg/5 mL (2 %) injection syringe 2023 024 [email or web address] [id number], [address] [place], [address], 4 14:30:49 triamcinolo ne acetonide 40 mg/mL suspension for injection 2023 024 [email or web address] [id number], [address] [place], [address], 4 14:30:49 Kenalog 40 mg/mL suspension for injection 2022 023 [email or web address] [id number], [address] [place], [address], 3 13:37:09 lidocaine (PF) 100 mg/5 mL (2 %) injection syringe 2022 023 [email or web address] [id number], [address] [place] [address], [address], 3 13:37:09 Patient TargetsNo targets recorded. Patient Instructions Encounter Date Encounter Id Patient Instructions Last Modified By Organization Details Last Modified Time 12/21/2022 [id number] Left knee x-rays taken at today's visit [...] office immediately. 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 Procedures Surgical History Date Name Laterality Status Provider Name and Address Organization Details Recorded Time 4 MJG Knee Injection w/o US completed Jeremie Hyaden MD [address] [facility] [address], [place], [address], [facility] [place] 05/31/2024 14:04:57 3 Knee Joint/Bursa Asp & Inj completed ELLY SANDERS PA-C [address] [facility] [address], [place], [address], [facility] [place] 12/21/2022 13:27:31 Imaging Results None recorded. Procedure Notes None recorded. Medical Equipment None Reported. Allergies Allergen ID Allergen Name Allergen Category Reaction Reaction Severity Criticality Documentation Date Start Date Code Code System Note Provider Name and Address Organization Details Recorded Time 1108 lisinopri l medicatio n Not available Not available Not available 12/21/2022 02990 RxNorm Sinai rowan, [facility] [place] 3 12:53:27 Medications Name Sig Start [...] Not Available Not Available Not Available coenzyme [id number]-[id number] E 100 mg-5 unit capsule Take 2 [...] Updated DateTime 05/31/2024 162.56 cm 28.2 kg/m2 65612.15 g Ivelisse Botello [place] - [facility] [place] 05/31/2024 13:41:48 Social History Question Answer Notes LastModified by Organizat ion Details LastModified Time Tobacco Smoking Status Current Every Day Smoker Ivelisse Botello null, [place] [facility] [place] 05/31/2024 13:45:21 How Much Tobacco Do You Smoke? 1 PPD [email or web address] Information not available 05/31/2024 Sex: Unknown Functional Status Question Answer Note LastModified by Organizat ion Details LastModified Time How many times per week do you consume alcohol? 3-4 times per week [email or web address] Information not available 05/31/2024 Do you use any illicit or recreational drugs? No [email or web address] Information not available 05/31/2024 What is your level of alcohol consumption? Occasional [email or web address] Information not available 05/31/2024 Mental Status None recorded. Family History Nothing Reported. Medical History Condition Response Hypertension Y Gynecological HistoryNo gynecological history recorded. Obstetrics History GPAL:G 0 P 0 0 0 0 Past Encounters Encounter ID Performer Location Encounter Start Date Encounter Closed Date Diagnosis/Indication Diagnosis SNOMED-CT Code Diagnosis ICD10 Code Diagnosis IMO Codes [id number] [address] [facility] [address] [place] [address] 12/21/2022 12:46:36 12/21/2022 13:26:27 Pain of left knee joint 4705360878 33259 M25.562 Chronic pa in following right total knee arthroplasty 3355237004 0772021 T84.84XD Arthritis of knee 539019 002 M13.862 [id number] MD HUE Guevara [facility] [address] [facility] [address] [place] [address] 05/31/2024 13:30:40 05/31/2024 14:01:12 History of right total knee replacement 0568262075 269867 Z96.651 97614692 Pain of le ft knee region 0337940667 07198 M25.562 17869610 Osteoarthr itis of left knee joint 9325213275 33889 M17.12 0353042 Health Concerns Section Related Observation LastModified by Organization Detai ls LastModified Time None Recorded Concern Status LastModified by Organization Details LastModified Time None Recorded Advance Directives Directive None Recorded Payers Insurance Date Sequence Insurance Name Policy Number Policy Aldana Covered Member ID Aldana Member ID Guarantor Name 06/03/2024 1 [facility] - MEDICARE PREFERRED (MEDICARE REPLACEMENT HMO) [employer] Mendy Jack [id number] Mendy Jack 06/03/2024 2 () Mendy Jack [id number] Mendy Jack Notes Date Note Type Note Provider Name and Address Organization Details Recorded Time 12/21/2022 text/html Assessment and Plan: Date of visit [id number] female history of right total knee arthroplasty [...] office. In the meantime she can take oevb-ycr-dxrriqi pain medication and topical analgesics for symptomatic [...] changes or saddle anesthesia. ELLY SANDERS PA-C [address] [place] [address], [phone], [place] [facility] [place] 12/21/2022 13:40:13 OBGyn Episode No OBEpisode recorded.
--- OUTSIDE RECORDS SUMMARY | 2025-09-11 16:25 | XMS_ITS | Encounter Summary ---
Author Organization [facility] Address [address] [place] [address] Care Team Providers Care Chargeback Analyst Name Role Phone Danae Sanchez MD Primary Care Provider Encounter Details Date Type Department Care Team (Late Contact Info) Description 07/20/2025 Lab Requisition [facility] [address] [facility] [place] [phone] Rogelio Avelar MD [address] [place] [address] Urinary tract infection, site not specified; Dysuria [...] for your loved ones. For example, childcare administrator or elderly care for an older adult? [...] PM EST Appointment [facility] [address] [place] [phone] 10/20/2025 3:30 PM EST Ancillary Procedure [facility] [address] [place] [phone] 11/26/2025 2:45 PM EST Office Visit Internal Medicine - [place] [address] [facility] [address] [place] [phone] Danae Sanchez MD [address] [place] [phone] 12/01/2025 3:45 PM EDT Office Visit Pulmonology - [place] [address] [facility] [address] [place] [phone] Akilah Bowen MD [address] [place] [phone] documented as of this encounter Procedures Procedure [...] reflex microscopic (07/19/2025 9:00 PM EDT) Specific Leon Urine 1.013 1.003 - 1.030 LAB URINALYSIS - AUTOMATED METHOD 07/20/2025 11:08 AM EDT [facility] pH, Urine 6.5 5.0 - 8.0 pH LAB URINALYSIS - AUTOMATED METHOD 07/20/2025 11:08 AM [facility] Leukocytes, Urine Large(A) Negative LAB URINALYSIS - AUTOMATED METHOD 07/20/2025 11:08 AM [facility] Nitrite, Urine Negative Negative LAB URINALYSIS - AUTOMATED METHOD 07/20/2025 11:08 AM [facility] Protein, Urine 30(A) <=Trace mg/dL LAB URINALYSIS - AUTOMATED METHOD 07/20/2025 11:08 AM [facility] Glucose, Urine 250(A) Negative mg/dL LAB URINALYSIS - AUTOMATED METHOD 07/20/2025 11:08 AM [facility] Ketones, Urine Negative Negative mg/dL LAB URINALYSIS - AUTOMATED METHOD 07/20/2025 11:08 AM [facility] Urobilinogen , Urine 0.2 0.2 - 1.0 mg/dL LAB URINALYSIS - AUTOMATED METHOD 07/20/2025 11:08 AM [facility] Bilirubin, Urine Negative Negative LAB URINALYSIS - AUTOMATED METHOD 07/20/2025 11:08 AM [facility] Blood, Urine Small(A) Negative LAB URINALYSIS - AUTOMATED METHOD 07/20/2025 11:08 AM [facility] RBC, Urine 1.0 0 - 4 /HPF LAB URINALYSIS - AUTOMATED METHOD 07/20/2025 11:08 AM [facility] WBC, Urine 811.7(H) 0 - 4 /HPF LAB URINALYSIS - AUTOMATED METHOD 07/20/2025 11:08 AM [facility] Squamous Epithelial, Urine 19 0 - 60 /LPF LAB URINALYSIS - AUTOMATED METHOD 07/20/2025 11:08 AM [facility] Crystals, Urine LT CALCIUM OXALATE /LPF LAB URINALYSIS - AUTOMATED METHOD 07/20/2025 11:08 AM [facility] Bacteria, Urine Moderate(A) Negative /HPF LAB URINALYSIS - AUTOMATED METHOD 07/20/2025 11:08 AM EDT [facility] Hyaline Casts, Urine 2.1 0 - 3 /LPF LAB URINALYSIS - AUTOMATED METHOD 07/20/2025 11:08 AM EDT [facility] Yeast, Urine Present(A) None /HPF LAB URINALYSIS - AUTOMATED METHOD 07/20/2025 11:08 AM EDT [facility] Urine Urinary bladder structure / Unknown 07/19/2025 9:00 PM EDT 07/20/2025 9:41 AM EDT us Rogelio Avelar MD LAB URINE ORDERABLES Final Result Performing Organization Address [facility] Co de Phone Number [facility] [address] [place] [address], [place] [phone] * (ABNORMAL) Culture urine (07/19/2025 9:00 PM EDT) [facility] Signature Culture, Urine 50,000-100, 000 CFU/mL Laura glabrata(A) THONG 07/24/2025 10:05 AM EDT [facility] Comment: The organism value for this result has been updated. These results have been appended to the previously preliminary verified report. Edited result: Previously reported as Yeast on 07/23/2025 at 0932 EDT. Urine Urinary bladder structure / Unknown 07/19/2025 9:00 PM EDT 07/20/2025 9:41 AM EDT us Rogelio Avelar MD LAB MICROBIOLOGY - GENERAL ORDERABLES Final Result Performing Organization Address [facility]/ZIP Co de Phone Number [facility] [address] [place] [address], [place] [phone] documented in this encounter Visit Diagnoses Diagnosis Urinary tract infection, site not specified Dysuria documented in this encounter Additional Health Concerns Assessment Noted Time PHQ-9 Depression Total Score: 9 01/08/20 25 12:13 PM EDT documented as of this encounter Care Teams Chargeback Analyst Relationship Specialty Start Date End Date Danae Sanchez MD [address] [address] PCP - General Internal Medicine 08/06/24 documented as of this encounter
--- OUTSIDE RECORDS SUMMARY | 2025-09-11 16:25 | XMS_ITS | Clinical Summary ---
Author Organization 175 [facility] Address [address] [place] [address] Phone Care Team Providers Care Head Host/Hostess Name Role Phone Danae Sanchez MD Primary Care Provider [phone] Allergies No known active allergies Medications cyclobenzaprine (FLEXERIL) 5 mg tablet TAKE 1 TABLET BY MOUTH AT BEDTIME NEEDED FOR MUSCLE SPASM(S) 4 Active acetaminophen (TYLENOL) 500 mg tablet [...] inhalerIndicati ons:ILD (interstitial lung disease) (CMS/HCC V24, CMS/[facility] V28),Chronic obstructive pulmonary disease, unspecified COPD type (CMS/[facility] V24, CMS/[facility] V28) Inhale 2 puffs by mouth every 6 (six) hours if needed for wheezing. 3 each 3 5 09/25/19 26 Active oxyBUTYnin (DITROPAN) 5 mg tablet Take [...] each day. 48 g 1 5 Active tiotropium (Spiriva Respimat) 2.5 mcg/actuation inhalation sprayIndication s:ILD (interstitial lung disease) (CMS/HCC V24, CMS/HCC V28),Chronic obstructive pulmonary disease, unspecified COPD type (CMS/HCC V24, CMS/HCC V28) Inhale 2 puffs by mouth 1 (one) time each day. 3 each 5 03/10/20 26 Active Advair HFA 230-21 mcg/actuation inhalerIndicati ons:ILD (interstitial lung disease) (CMS/HCC V24, CMS/HCC V28),Chronic obstructive pulmonary disease, unspecified COPD type (CMS/[facility] V24, CMS/[facility] V28) INHALE 2 PUFFS BY MOUTH 2 TIMES A DAY. RINSE MOUTH WITH WATER AFTER USE TO REDUCE AFTERTASTE AND INCIDENCE OF CANDIDIASIS. DO NOT SWALLOW. 36 each 5 Active budesonide-form oteroL (Breyna) 160-4.5 mcg/actuation inhaler Inhale 2 puffs by mouth 2 (two) times a day. Rinse mouth with water after use to reduce aftertaste and incidence of candidiasis. Do not swallow. 3 each 5 03/10/20 26 Active pravastatin (PRAVACHOL) 20 mg tablet Take 1 tablet (20 mg total) by mouth 1 (one) time each day. 90 tablet 3 5 Active tiotropium (SPIRIVA RESPIMAT) 2.5 mcg/actuation inhalation sprayIndication s:Pulmonary emphysema, unspecified emphysema type Inhale 2 puffs by mouth 1 (one) time each day. 1 each 5 04/02/20 26 Active fluticasone furoate-vilante roL (Breo Ellipta) 200-25 mcg/dose inhaler Inhale 1 puff by mouth 1 (one) time each day. 1 each 5 04/23/20 26 Active fluticasone-ume clidinium-vilan terol (Trelegy Ellipta) 100-62.5-25 mcg inhaler Inhale 1 puff (100 mcg total) by mouth 1 (one) time each day. Rinse mouth with water after use to reduce aftertaste and incidence of candidiasis. Do not swallow. 3 each 3 5 07/31/20 26 Active traZODone (DESYREL) 100 mg tablet Take 1 tablet (100 mg total) by mouth at bedtime. at bedtime. 90 tablet 3 5 Active gabapentin (NEURONTIN) 300 mg capsule Take 1 capsule (300 mg total) by mouth 2 (two) times a day. 180 each 3 5 Active FLUoxetine (PROzac) 40 mg capsule Take 1 capsule (40 mg total) by mouth 1 (one) time each day. 90 capsule 3 5 Active empagliflozin (Jardiance) 10 mg tablet Take 1 tablet (10 mg total) by mouth 1 (one) time each day in the morning. 90 tablet 2 5 Active buPROPion XL (WELLBUTRIN XL) 150 mg 24 hr tablet Take 1 tablet (150 mg total) by mouth 1 (one) time each day in the morning. Do not crush, chew, or split. 90 each 2 5 Active levothyroxine (SYNTHROID, LEVOTHROID) 75 mcg tablet Take 1 tablet (75 mcg total) by mouth 1 (one) time each day. 90 each 2 5 Active furosemide (LASIX) 20 mg tablet Take 1 tablet (20 mg total) by mouth 1 (one) time each day. 90 each 2 5 Active losartan (COZAAR) 25 mg tablet Take 1 tablet (25 mg total) by mouth 1 (one) time each day. 90 tablet 3 5 Active carvediloL (COREG) 3.125 mg tablet Take 1 tablet (3.125 mg total) by mouth 2 (two) times a day with meals. 180 tablet 3 5 Active oxyBUTYnin XL (DITROPAN-XL) 5 mg 24 hr tablet 4 08/26/20 25 Discontin ued(Dupli tanya order) FLUoxetine (PROzac) 40 mg capsule Take 1 capsule (40 mg total) by mouth 1 (one) time each day. 90 capsule 3 4 08/26/20 25 Discontin ued(Reord er) buPROPion XL (WELLBUTRIN XL) 150 mg 24 hr tablet Take 1 tablet (150 mg total) by mouth 1 (one) time each day in the morning. 90 tablet 3 5 08/26/20 25 Discontin ued(Dupli tanya order) traZODone (DESYREL) 100 mg tablet TAKE 1 TABLET BY MOUTH AT BEDTIME 90 tablet 3 5 08/26/20 25 Discontin ued(Reord er) levothyroxine (SYNTHROID, LEVOTHROID) 50 mcg tablet Take 1 tablet (50 mcg total) by mouth 1 (one) time each day. 90 tablet 3 5 08/26/20 25 Discontin ued(Expir ed) meloxicam (MOBIC) 7.5 mg tablet Take 1 tablet (7.5 mg total) by mouth 1 (one) time each day. 90 tablet 3 5 08/26/20 25 Discontin ued(Enter ed in Error) losartan (COZAAR) 25 mg tablet TAKE 1 TABLET BY MOUTH DAILY 90 tablet 3 5 08/26/20 25 Discontin ued(Reord er) Active Problems Problem Noted Date Diagnosed Date Chronic kidney disease, stage 3a 08/26/2025 Current smoker 08/07/2024 Depression 08/07/2024 Benign hypertension 08/07/2024 Assessment & Plan (10/31/2024 4:06 PM EST): Blood pressure is normal. I will discontinue hydrochlorothiazide. 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 Interstitial lung disease 10/18/2021 Overview (07/09/2024): Last Assessment & Plan: [...] Encounters Date Type Department Care Team Description 09/11/2025 Telephone Internal Medicine - [place] [facility] [address] [place] [address] Danae Sanchez MD 09/10/2025 11:40 AM EST - 09/10/2025 11:59 PM EST Hospital Encounter [facility] Xray [address] [place] [phone] Subacute cough Discharge Disposition: Home or Self Care 09/09/2025 Telephone Internal Medicine [address] [address] [place] 09/08/2025 Telephone Internal Medicine [facility] [address] [address] Danae Sanchez MD 09/05/2025 Telephone Internal Medicine [address] [address] Danae Sanchez MD 09/05/2025 [facility] [address] [phone] Danae Sanchez MD 08/28/2025 [facility] [address] [address] [place] 08/28/2025 Telephone Internal [address] [address] [place] 08/27/2025 Results Follow-Up Internal [address] [address] Danae Sanchez MD 08/26/2025 3:05 PM EST Lab Draw Station - [address] [phone] Primary hypertension; Mixed hyperlipidemia; Cardiomyopathy, unspecified type (CMS/HCC V24, CMS/HCC V28); Hypothyroidism due to acquired atrophy of thyroid; Chronic obstructive pulmonary disease with emphysema, unspecified emphysema type (CMS/HCC V24, CMS/HCC V28) 08/26/2025 2:15 PM EST Office Visit Internal Medicine [address] [address] Danae Sanchez MD Primary hypertension (Primary Dx); Mixed hyperlipidemia; Cardiomyopathy, unspecified type (CMS/HCC V24, [facility] V28); Hypothyroidism due to acquired atrophy of thyroid; Chronic obstructive pulmonary disease with emphysema, unspecified emphysema type ([facility] V24, [facility] V28); Chronic kidney disease, stage 3a ([facility] V24, [facility] V28) 08/25/2025 Telephone Pulmonology [address] [address] Akilah Bowen MD 08/22/2025 Telephone Internal Medicine [address] [address] Danae Sanchez MD 08/22/2025 [facility] [address] [address] Danae Sanchez MD 08/20/2025 [facility] [address] [address] Danae Sanchez MD 08/20/2025 [facility] [address] [address] Cynthia Correa RN 08/18/2025 [facility] [address] [address] Danae Sanchez MD 08/06/2025 Lab Requisition [facility] [address] [facility] [place] [phone] Rogelio Avelar MD Anemia, unspecified 07/31/2025 3:00 PM EST Procedure visit Pulmonology [address] [address] Dyspnea, unspecified type 07/31/2025 2:45 PM EST Office Visit Pulmonology [address] [address] Akilah Bowen MD Dyspnea, unspecified type (Primary Dx); Pulmonary fibrosis ([facility] V24, [facility] V28); Chronic obstructive pulmonary disease, unspecified COPD type ([facility] V24, [facility] V28); Lung nodules; Recurrent pneumonia; Hypoxemia; Hospital discharge follow-up; Ex-smoker 07/30/2025 Lab Requisition [facility] [address] [place] [phone] Rogelio vAelar MD Anemia, unspecified 07/23/2025 Lab Requisition [facility] [address] [place] [phone] Rogelio Avelar MD Anemia, unspecified 07/20/2025 Lab Requisition [facility] [address] [place] [phone] Rogelio Avelar MD Urinary tract infection, site not specified; Dysuria 07/17/2025 Lab Requisition [facility] [address] [place] [phone] Rogelio Avelar MD Anemia, unspecified from Last [...] HISTORICAL CATARACT REMOVAL TOTAL KNEE ARTHROPLASTY PROCEDURE: SD ARTHRP KNE CONDYLE&PLATU MEDIAL&LAT COMPARTMENTS Medical History [...] for your loved ones. For example, child nutrition director or elderly care for an older adult? [...] Sign Reading Time Taken Comments Blood Pressure 114/78 08/26/2025 2:16 PM EST Pulse 73 08/26/2025 2:16 PM EST Temperature 36.4 C (97.6 F) 08/26/2025 2:16 PM EST Respiratory Rate 18 08/26/2025 2:16 PM EST Oxygen Saturation 91% 08/26/2025 2:16 PM EST Inhaled Oxygen Concentration - - Weight 59 kg (130 lb) 08/26/2025 2:16 PM EST Height 162.6 cm (5' 4 ) 08/26/2025 2:16 PM EST Body Mass Index 22.31 08/26/2025 2:16 PM EST Plan of Treatment Upcoming Encounters Date Type Department Care Team (Late st Contact Info) Description 09/15/2025 3:15 PM EST Appointment [facility] [address] [place] [phone] 10/20/2025 3:30 PM EST Ancillary Procedure [facility] [address] [place] [phone] 11/26/2025 2:45 PM EST Office Visit Internal Medicine - [place] [address] [facility] [address] [place] [phone] Danae Sanchez MD [address] [place] [phone] 12/01/2025 3:45 PM EDT Office Visit Pulmonology - [place] 175 [facility] [address] [place] [address] Akilah Bowen MD [address] [place] [phone] Health Maintenance Due Date Last Done Comments [...] 12/24/2024, 024 Hypertension/CHF/CAD Annual BMP Blood Test 08/26/2026 08/26/2025, 08/07/2025, 07/31/2025, Additional history exists Cholesterol Screening (Lipid Panel) [...] 09/10/2025 12:1 7 PM EST Subacute cough CBC WITH AUTO DIFFERENTIAL Routine 08/26/2025 3:06 PM EST Primary hypertension Mixed hyperlipidemia Cardiomyopathy, unspecified type (CMS/HCC V24, CMS/HCC V28) 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, unspecified emphysema type (CMS/HCC V24, CMS/HCC V28) FERRITIN Routine 08/26/2025 3:06 PM EST Primary hypertension Mixed hyperlipidemia Cardiomyopathy, unspecified type (CMS/HCC V24, CMS/HCC V28) 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, unspecified emphysema type (CMS/HCC V24, CMS/HCC V28) IRON AND TIBC Routine 08/26/2025 3:06 PM EST Primary hypertension Mixed hyperlipidemia Cardiomyopathy, unspecified type (CMS/HCC V24, CMS/HCC V28) 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, unspecified emphysema type (CMS/HCC V24, CMS/HCC V28) MAGNESIUM Routine 08/26/2025 3:06 PM EST Primary hypertension Mixed hyperlipidemia Cardiomyopathy, unspecified type (CMS/HCC V24, CMS/HCC V28) 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, unspecified emphysema type (CMS/HCC V24, CMS/HCC V28) THYROID STIMULATING HORMONE Routine 08/26/2025 3:06 PM EST Primary hypertension Mixed hyperlipidemia Cardiomyopathy, unspecified type (CMS/HCC V24, CMS/HCC V28) 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, unspecified emphysema type (CMS/HCC V24, CMS/HCC V28) CBC AND DIFFERENTIAL Routine 08/26/2025 3:06 PM EST Primary hypertension Mixed hyperlipidemia Cardiomyopathy, unspecified type (CMS/HCC V24, CMS/HCC V28) 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 Code 59247 -------- FINAL REPORT -------- Dictated By: Krishna Jain Dictated Date: 09/11/2025 07:51 ET Assigned Physician: Krishna Jain Reviewed and Electronically Signed By: Krishna Jain Signed Date: 09/11/2025 07:55 ET Workstation ID: [id number] Transcribed By: Self Edit Transcribed Date: 09/11/2025 [...] shoulderreplacement surgery since the prior examination. Code 02174 -------- FINAL REPORT -------- Dictated By: Krishna Jain Dictated Date: 09/11/2025 07:51 ET Assigned Physician: Krishna Jain Reviewed and Electronically Signed By: Krishna Jain Signed Date: 09/11/2025 07:55 ET Workstation ID: [id number] Transcribed By: Self Edit Transcribed Date: 09/11/2025 07:51 ET Danae Sanchez MD IMG XR PROCEDURES Final Result * (ABNORMAL) CBC auto differential (08/26/2025 3:06 PM EST) WBC 17.8(H) 4.8 - 10.8 K/mcL LAB HEMETOLOGY METHOD 08/26/2025 6:[address] [facility] RBC 4.20 3.80 - 4.80 M/mcL LAB HEMETOLOGY METHOD 08/26/2025 6:[address] [facility] Hemoglobin 12.1 11.5 - 16.0 g/dL LAB HEMETOLOGY METHOD 08/26/2025 6:[address] [facility] Hematocrit 40.2 35.0 - 47.0 % LAB HEMETOLOGY METHOD 08/26/2025 6:[address] [facility] MCV 95.0 79.0 - 98.0 FL LAB HEMETOLOGY METHOD 08/26/2025 6:[address] [facility] MCH 28.6 27.0 - 32.0 pcg LAB HEMETOLOGY METHOD 08/26/2025 6:[address] [facility] MCHC 30.1(L) 32.0 - 37.0 g/dL LAB HEMETOLOGY METHOD 08/26/2025 6:[address] [facility] RDW 16.2(H) 11.0 - 15.0 % LAB HEMETOLOGY METHOD 08/26/2025 6:[address] [facility] Platelets 449(H) 130 - 400 K/mcL LAB HEMETOLOGY METHOD 08/26/2025 6:[address] [facility] MPV 10.7 7.0 - 11.0 FL LAB HEMETOLOGY METHOD 08/26/2025 6:[address] [facility] NRBC 0.0 <1.0 % LAB HEMETOLOGY METHOD 08/26/2025 6:[address] [facility] NRBC Absolute 0.00 <0.10 K/mcL LAB HEMETOLOGY METHOD 08/26/2025 6:[address] [facility] Neutrophils Relative 90.0 % LAB HEMETOLOGY METHOD 08/26/2025 6:[address] [facility] Lymphocytes Relative 4.7 % LAB HEMETOLOGY METHOD 08/26/2025 6:[address] [facility] Monocytes Relative 3.4 % LAB HEMETOLOGY METHOD 08/26/2025 6:[address] [facility] Eosinophils Relative 0.6 % LAB HEMETOLOGY METHOD 08/26/2025 6:[address] [facility] Basophils Relative 0.2 % LAB HEMETOLOGY METHOD 08/26/2025 6:[address] [facility] Immature Granulocytes Relative 1.1 % LAB HEMETOLOGY METHOD 08/26/2025 6:[address] [facility] Neutrophils Absolute 16.04(H) 1.50 - 7.00 K/mcL LAB HEMETOLOGY METHOD 08/26/2025 6:[address] [facility] Lymphocytes Absolute 0.84(L) 1.00 - 5.00 K/mcL LAB HEMETOLOGY METHOD 08/26/2025 6:[address] [facility] Monocytes Absolute 0.60 0.20 - 1.00 K/mcL LAB HEMETOLOGY METHOD 08/26/2025 6:[address] [facility] Eosinophils Absolute 0.10 0.00 - 0.50 K/mcL LAB HEMETOLOGY METHOD 08/26/2025 6:[address] [facility] Basophils Absolute 0.04 0.00 - 0.20 K/mcL LAB HEMETOLOGY METHOD 08/26/2025 6:[address] [facility] Immature Granulocytes Absolute 0.19(H) 0.00 - 0.03 K/mcL LAB HEMETOLOGY METHOD 08/26/2025 6:[address] [facility] Blood Venous blood specimen / Unknown Venipuncture / Unknown 08/26/2025 3:06 PM EST 08/26/2025 3:06 PM EST us Danae Sanchez MD LAB BLOOD ORDERABLES Final Res ult [facility] [address] [place] [address], * (ABNORMAL) Iron and TIBC (08/26/2025 3:06 PM EST) Iron 22(L) 40 - 150 mcg/dL 08/26/2025 6:29 PM EST [facility] TIBC 216(L) 250 - 450 mcg/dL 08/26/2025 6:29 PM EST [facility] Iron Saturation 10(L) 15 - 50 % 6:29 PM EST [facility] Blood Venous blood specimen / Unknown Venipuncture / Unknown 08/26/2025 3:06 PM EST 08/26/2025 3:06 PM EST Danae Sanchez MD LAB BLOOD ORDERABLES Final Res ult [facility] [address] [place] [address], [place] [phone] * Thyroid stimulating hormone (08/26/2025 3:06 PM EST) TSH 3.53 0.40 - 4.00 mcIU/mL 08/26/2025 6:30 PM EST [facility] Blood Venous blood specimen / Unknown Venipuncture / Unknown 08/26/2025 3:06 PM EST 08/26/2025 3:06 PM EST us Danae Sanchez MD LAB BLOOD ORDERABLES Final Res ult [facility] [address] [place] [address], [place] [phone] * Magnesium (08/26/2025 3:06 PM EST) Magnesium 2.1 1.9 - 2.6 mg/dL 08/26/2025 6:29 PM EST [facility] Blood Venous blood specimen / Unknown Venipuncture / Unknown 08/26/2025 3:06 PM EST 08/26/2025 3:06 PM EST Danae Sanchez MD LAB BLOOD ORDERABLES Final Res ult Performing Organization Address [facility]/ZIP Co de Phone Number [facility] [address] [place] [address], [place] [phone] * (ABNORMAL) Ferritin (08/26/2025 3:06 PM EST) Pathologist [facility] Ferritin 397(H) 7 - 271 ng/mL 08/26/2025 6:[address] [facility] Blood Venous blood specimen / Unknown Venipuncture / Unknown 08/26/2025 3:06 PM EST 08/26/2025 3:06 PM EST Danae Sanchez MD LAB BLOOD ORDERABLES Final Res ult Performing Organization Address [facility]/ZIP Co de Phone Number [facility] [address] [place] [address], [place] [phone] * (ABNORMAL) Comprehensive metabolic panel (08/26/2025 3:06 PM EST) Only the most recent of2 resultswithin the time period is included. [facility] Sodium 137 133 - 145 mmol/L 08/26/2025 6:[address] [facility] Potassium 5.3 3.5 - 5.5 mmol/L 08/26/2025 6:[address] [facility] Chloride 98 96 - 110 mmol/L 08/26/2025 6:[address] [facility] CO2 32 21 - 32 mmol/L 08/26/2025 6:[address] [facility] Anion Gap 7 3 - 11 08/26/2025 6:[address] [facility] Glucose 121(H) 70 - 100 mg/dL 08/26/2025 6:[address] [facility] BUN 27(H) 5 - 25 mg/dL 08/26/2025 6:[address] [facility] Creatinine 1.12(H) 0.50 - 1.10 mg/dL 08/26/2025 6:[address] [facility] eGFR 50(L) >=60 mL/min/1. 73m2 08/26/2025 6:[address] [facility] Comment:Calculation based on the Chronic Kidney Disease Epidemiology Collaboration (CKD-EPI) equation refit without adjustment for race. BUN/Creatinine Ratio 24.1 08/26/2025 6:[address] [facility] Calcium 10.1 8.5 - 10.5 mg/dL 08/26/2025 6:[address] [facility] AST (SGOT) 23 10 - 42 unit/L 08/26/2025 6:[address] [facility] ALT (SGPT) 15 10 - 60 unit/L 08/26/2025 6:[address] [facility] Alkaline Phosphatase 105 42 - 121 unit/L 08/26/2025 6:[address] [facility] Total Protein 6.3 6.0 - 8.0 g/dL 08/26/2025 6:[address] [facility] Albumin 3.2 3.2 - 5.0 g/dL 08/26/2025 6:[address] [facility] Total Bilirubin 0.2 0.0 - 1.4 mg/dL 08/26/2025 6:[address] [facility] Blood Venous blood specimen / Unknown Venipuncture / Unknown 08/26/2025 3:06 PM EST 08/26/2025 3:06 PM EST us Danae Sanchez MD LAB BLOOD ORDERABLES Final Res ult [facility] [address] [place] [address], * (ABNORMAL) Complete blood count (08/07/2025 8:19 AM EST) Only the most recent of4 resultswithin the time period is included. [facility] Signature WBC 11.7(H) 4.8 - 10.8 K/mcL LAB HEMETOLOGY METHOD 08/07/2025 11:[address] [facility] RBC 3.30(L) 3.80 - 4.80 M/mcL LAB HEMETOLOGY METHOD 08/07/2025 11:[address] [facility] Hemoglobin 9.7(L) 11.5 - 16.0 g/dL LAB HEMETOLOGY METHOD 08/07/2025 11:[address] [facility] Hematocrit 30.4(L) 35.0 - 47.0 % LAB HEMETOLOGY METHOD 08/07/2025 11:[address] [facility] MCV 93.3 79.0 - 98.0 FL LAB HEMETOLOGY METHOD 08/07/2025 11:[address] [facility] MCH 29.8 27.0 - 32.0 pcg LAB HEMETOLOGY METHOD 08/07/2025 11:[address] [facility] MCHC 31.9(L) 32.0 - 37.0 g/dL LAB HEMETOLOGY METHOD 08/07/2025 11:[address] [facility] RDW 17.7(H) 11.0 - 15.0 % LAB HEMETOLOGY METHOD 08/07/2025 11:[address] [facility] Platelets 339 130 - 400 K/mcL LAB HEMETOLOGY METHOD 08/07/2025 11:[address] [facility] MPV 10.4 7.0 - 11.0 FL LAB HEMETOLOGY METHOD 08/07/2025 11:[address] [facility] NRBC 0.0 <1.0 % LAB HEMETOLOGY METHOD 08/07/2025 11:[address] [facility] NRBC Absolute 0.00 <0.10 K/mcL LAB HEMETOLOGY METHOD 08/07/2025 11:[address] [facility] Blood Venous blood specimen / Unknown Venipuncture / Unknown 08/07/2025 8:19 AM EST 08/07/2025 11:18 AM EST us Rogelio Avelar MD LAB BLOOD ORDERABLES Final Result [facility] [address] [place] [address], * (ABNORMAL) Basic metabolic panel (08/07/2025 8:19 AM EST) Only the most recent of3 resultswithin the time period is included. Sodium 140 133 - 145 mmol/L LAB CHEMISTRY METHOD 08/07/2025 12:[address] [facility] Potassium 3.6 3.5 - 5.5 mmol/L LAB CHEMISTRY METHOD 08/07/2025 12:[address] [facility] Chloride 102 96 - 110 mmol/L LAB CHEMISTRY METHOD 08/07/2025 12:[address] [facility] CO2 32 21 - 32 mmol/L LAB CHEMISTRY METHOD 08/07/2025 12:[address] [facility] Anion Gap 6 3 - 11 LAB CHEMISTRY METHOD 08/07/2025 12:[address] [facility] Glucose 53(L) 70 - 100 mg/dL LAB CHEMISTRY METHOD 08/07/2025 12:[address] [facility] BUN 26(H) 5 - 25 mg/dL LAB CHEMISTRY METHOD 08/07/2025 12:[address] [facility] Creatinine 1.05 0.50 - 1.10 mg/dL LAB CHEMISTRY METHOD 08/07/2025 12:[address] [facility] eGFR 54(L) >=60 mL/min/1. 73m2 LAB CHEMISTRY METHOD 08/07/2025 12:14 PM EST [facility] Comment:Calculation based on the Chronic Kidney Disease Epidemiology Collaboration (CKD-EPI) equation refit without adjustment for race. BUN/Creatinine Ratio 24.8 LAB CHEMISTRY METHOD 08/07/2025 12:14 PM EST [facility] Calcium 8.2(L) 8.5 - 10.5 mg/dL LAB CHEMISTRY METHOD 08/07/2025 12:14 PM EST [facility] Blood Venous blood specimen / Unknown Venipuncture / Unknown 08/07/2025 8:19 AM EST 08/07/2025 11:21 AM EST us Rogelio Avelar MD LAB BLOOD ORDERABLES Final Result [facility] [address] [place] [address], [place] [phone] * 6 minute walk test (07/31/2025 4:23 [...] reflex microscopic (07/19/2025 9:00 PM EDT) Specific [place] Urine 1.013 1.003 - 1.030 LAB URINALYSIS - AUTOMATED METHOD 07/20/2025 11:08 AM EDT [facility] pH, Urine 6.5 5.0 - 8.0 pH LAB URINALYSIS - AUTOMATED METHOD 07/20/2025 11:08 AM EDT [facility] Leukocytes, Urine Large(A) Negative LAB URINALYSIS - AUTOMATED METHOD 07/20/2025 11:08 AM [facility] Nitrite, Urine Negative Negative LAB URINALYSIS - AUTOMATED METHOD 07/20/2025 11:08 AM [facility] Protein, Urine 30(A) <=Trace mg/dL LAB URINALYSIS - AUTOMATED METHOD 07/20/2025 11:08 AM [facility] Glucose, Urine 250(A) Negative mg/dL LAB URINALYSIS - AUTOMATED METHOD 07/20/2025 11:08 AM [facility] Ketones, Urine Negative Negative mg/dL LAB URINALYSIS - AUTOMATED METHOD 07/20/2025 11:08 AM [facility] Urobilinogen , Urine 0.2 0.2 - 1.0 mg/dL LAB URINALYSIS - AUTOMATED METHOD 07/20/2025 11:08 AM [facility] Bilirubin, Urine Negative Negative LAB URINALYSIS - AUTOMATED METHOD 07/20/2025 11:08 AM [facility] Blood, Urine Small(A) Negative LAB URINALYSIS - AUTOMATED METHOD 07/20/2025 11:08 AM [facility] RBC, Urine 1.0 0 - 4 /HPF LAB URINALYSIS - AUTOMATED METHOD 07/20/2025 11:08 AM [facility] WBC, Urine 811.7(H) 0 - 4 /HPF LAB URINALYSIS - AUTOMATED METHOD 07/20/2025 11:08 AM [facility] Squamous Epithelial, Urine 19 0 - 60 /LPF LAB URINALYSIS - AUTOMATED METHOD 07/20/2025 11:08 AM [facility] Crystals, Urine LT CALCIUM OXALATE /LPF LAB URINALYSIS - AUTOMATED METHOD 07/20/2025 11:08 AM [facility] Bacteria, Urine Moderate(A) Negative /HPF LAB URINALYSIS - AUTOMATED METHOD 07/20/2025 11:08 AM [facility] Hyaline Casts, Urine 2.1 0 - 3 /LPF LAB URINALYSIS - AUTOMATED METHOD 07/20/2025 11:08 AM EDT [facility] Yeast, Urine Present(A) None /HPF LAB URINALYSIS - AUTOMATED METHOD 07/20/2025 11:08 AM EDT [facility] Urine Urinary bladder structure / Unknown 07/19/2025 9:00 PM EDT 07/20/2025 9:41 AM EDT us Rogelio Avelar MD LAB URINE ORDERABLES Final Result Performing Organization Address [facility]/ZIP Co de Phone Number [facility] [address] [place] [address], [place] [phone] * (ABNORMAL) Culture urine (07/19/2025 9:00 PM EDT) [facility] Signature Culture, Urine 50,000-100, 000 CFU/mL Laura glabrata(A) THONG 07/24/2025 10:05 AM EDT [facility] Comment: The organism value for this result has been updated. These results have been appended to the previously preliminary verified report. Edited result: Previously reported as Yeast on 07/23/2025 at 0932 EDT. Urine Urinary bladder structure / Unknown 07/19/2025 9:00 PM EDT 07/20/2025 9:41 AM EDT us Rogelio Avelar MD LAB MICROBIOLOGY - GENERAL ORDERABLES Final Result [facility] [address] [place] [address], [place] [phone] * COLONOSCOPY Anesthesia - [facility] (12/24/2024 12:04 PM EDT) Anatomical Region Laterality Modality Endoscopy 12/24/2024 11:4 5 AM EDT Impressions 12/24/2024 12:05 PM EDT - One 8 mm polyp in the ascending colon, removed with a cold snare. Resected and retrieved. - A single (solitary) ulcer in the transverse colon. Clip (MR conditional) was placed. Clip pulverizing and sifting operator: Baidu. - Diverticulosis in the sigmoid colon and in the descending colon. - Internal hemorrhoids. Recommendation: - Await pathology results. - No repeat colonoscopy due to age. Narrative 12/24/2024 12:05 PM EDT [facility] Patient Name: Mendy Jiang Procedure Date: [...] verified by the physician, the nurse, the furnace clerk and the dermatology technician in the pre-procedure area in the [...] clip was successfully placed (MR conditional). Clip pulverizing and sifting operator: Baidu. There was no bleeding at the end of the procedure. Estimated blood loss was minimal. Many small and large-mouthed diverticula were found in the sigmoid colon and descending colon. Internal hemorrhoids were found during retroflexion. The hemorrhoids were Grade II (internal hemorrhoids that prolapse but reduce spontaneously). 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 All rights reserved. The codes documented in this report are preliminary and upon shell trim tool setter review may be revised to meet current compliance requirements. Janeth Mendoza MD 12/24/2024 12:05:27 PM This report has been signed electronically.Janeth Mendoza MD Number of Addenda: 0 Note Initiated On: 12/24/2024 11:45 AM Scope Withdrawal Time: 0 hours 7 minutes 53 seconds Scope In: 11:51:22 AM Scope Out: 12:03:03 PM Endoscopy Department at [facility] - [address] [place] [phone] Procedure Note Janeth Mendoza MD - 12/24/2024 [facility] Patient Name: Mendy Jiang Procedure Date: [...] the physician, the nurse, theanesthetist and the dermatology technician in the pre-procedure area in the [...] clip was successfully placed (MR conditional). Clip pulverizing and sifting operator: Baidu. There was nobleeding at the end of the procedure. Estimated blood losswas minimal. Many small and large-mouthed diverticula were foundin the sigmoid colon and descending colon. Internal hemorrhoids were found duringretroflexion. The hemorrhoids were Grade II (internal hemorrhoids that prolapse but reduce spontaneously). 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 All rights reserved. The codes documented in this report are preliminary and upon shell trim tool setter reviewmay be revised to meet current compliance requirements. Janeth Mendoza MD 12/24/2024 12:05:27 PM This report has been signed electronically.Janeth Mendoza MD Number of Addenda: 0 Note Initiated On: 12/24/2024 11:45 AM Scope Withdrawal Time: 0 hours 7 minutes 53 seconds Scope In: 11:51:22 AM Scope Out: 12:03:03 PM Endoscopy Department at [facility] - [address] [place] [phone] IMPRESSION: - One 8 mm polyp in the ascending colon, removed with a cold snare. Resected and retrieved. - A single (solitary) ulcer in the transversecolon. Clip (MR conditional) was placed. Clipmanufacturer: Baidu. - Diverticulosis in the sigmoid colon and in the descending colon. - Internal hemorrhoids. Recommendation: - Await pathology results. - No repeat colonoscopy due to age. us Janeth Mendoza MD GI~PROCEDURE ORDERABLES Fin al Result * Lipid panel with reflex to direct LDL (09/02/2024 10:17 AM EST) Cholesterol 182 0 - 200 mg/dL LAB CHEMISTRY METHOD 09/02/2024 3:[address] [facility] Triglycerides 113 0 - 150 mg/dL LAB CHEMISTRY METHOD 09/02/2024 3:[address] [facility] HDL 64 >=40 mg/dL LAB CHEMISTRY METHOD 09/02/2024 3:[address] [facility] LDL Calculated 95 0 - 100 mg/dL LAB CHEMISTRY METHOD 09/02/2024 3:[address] [facility] VLDL Cholesterol Nicko 22.6 mg/dL LAB CHEMISTRY METHOD 09/02/2024 3:[address] [facility] Non HDL Chol. (LDL+VLDL) 118 <145 mg/dL LAB CHEMISTRY METHOD 09/02/2024 3:[address] [facility] Chol/HDL Ratio 2.8 0.0 - 4.4 LAB CHEMISTRY METHOD 09/02/2024 3:[address] [facility] Blood Venous blood specimen / Unknown Venipuncture / Unknown 09/02/2024 10:17 AM EST 09/02/2024 10:17 AM EST us Danae Sanchez MD LAB BLOOD ORDERABLES Final Res ult [facility] [address] [place] [address], [place] [phone] * CT LUNG SCREENING LOW DOSE (10/19/2020 4:14 PM EST) Anatomical Region Laterality Modality Computed Tomogra phy 10/19/2020 2:39 PM EST Narrative 10/19/2020 4:[address] [facility] Diagnostic Imaging Department [address] [facility] [address] Patient: MENDY JIANG Frantz /Age/Sex: 1945 - 74 - F Unit#: [id number] Location/Status: SPDICATLS/REG CLI Mnemonic/Ordering Site: [facility] Ordering Physician: DAVE LARKIN MD CT Lung Screening Low Dose - 10/19/20 - 1449 History: 54 pack-year current smoker screening for lung malignancy. Comparison: 09/23/2019 Findings: Noncontrast low dose chest CT (LDCT) was performed per lung cancer CT screening protocol on a CommonBond multidetector scanner. The CT scanner utilized low- [...] Date/Time: 10/19/20 1609 Sign date/Time: 10/19/20 1614 Procedure Note Kenroy Beebe MD - 09/13/2022 [facility] Diagnostic Imaging Department [address] [place] [id number] Patient: GUEROMENDY Frantz Salcido./Age/Sex: 1945 - 74 - F Unit#: [id number] Location/Status: SPDICATLS/[facility] CLI Mnemonic/Ordering Site: [facility] Ordering Physician: DAVE LARKIN MD CT Lung Screening Low Dose - 10/19/20 - 1449 History: 54 pack-year current smoker screening for lung malignancy. Comparison: 09/23/2019 Findings: Noncontrast low dose chest CT (LDCT) was performed per lungcancer CT screening protocol on a CommonBond multidetector scanner. The CT scanner utilizedlow- dose [...] Most Recently Relevant to Health Maintenance Insurance [facility] MEDICARE Advance Directives Documents on File Type Date Recorded Patient Special Distribution Clerk Expl anation Health Care Decision (hx) 08/05/2021 ABIODUN FLANAGAN DIRECTIVE Care Teams Head Host/Hostess Relationship Specialty Start Date End Date Danae Sanchez MD [address] [facility] [address] [place] [address] PCP - General Internal Medicine 08/06/24
--- OUTSIDE RECORDS SUMMARY | 2025-09-11 16:25 | XMS_ITS | Encounter Summary ---
Author Organization [facility] Address [address] [place] [address] Care Team Providers Care Coning Machine Operator Name Role Phone Danae Sacnhez MD Primary Care Provider [phone] Encounter Details Date Type Department Care Team ([facility] Contact Info) Description 08/18/2025 Telephone Internal Medicine - [place] 175 [facility] [address] [place] [address] Danae Sanchez MD [address] [place] [address] Social History Tobacco Use Types Packs/Day [...] for your loved ones. For example, children's tutor or elderly care for an older adult? [...] as of this encounter Progress Notes * Carola Roldan RN - 08/18/2025 3:34 PM EST Will call on day of discharge to schedule the TCM * Nadia Chacho Jurado - 08/18/2025 10:34 AM EST Post hospital follow - [facility] : LEFT HUMEROUS Fra DISCHARGE 08-20-2025 Rehab request is to contact patient directly to schedule follow up documented in this encounter Plan of Treatment Upcoming Encounters Date Type Department Care Team (Late st Contact Info) Description 09/15/2025 3:15 PM EST Appointment [facility] [address] [place] [phone] 10/20/2025 3:30 PM EST Ancillary Procedure [facility] - [facility] [address] [facility] [address] [place] [address] 11/26/2025 2:45 PM EST Office Visit Internal Medicine - [place] 175 [facility] [address] [place] [phone] Danae Sanchez MD [address] [place] [phone] 12/01/2025 3:45 PM EDT Office Visit Pulmonology - [place] 175 [facility] [address] [place] [phone] Akilah Bowen MD [address] [place] [phone] documented as of this encounter Visit Diagnoses Not on filedocumented in this encounter Additional Health Concerns Assessment Noted Time PHQ-9 Depression Total Score: 9 01/08/20 25 12:13 PM EDT documented as of this encounter Care Teams Coning Machine Operator Relationship Specialty Start Date End Date Danae Sanchez MD 175 [facility] [address] [place] [phone] PCP - General Internal Medicine 08/06/24 documented as of this encounter
--- OUTSIDE RECORDS SUMMARY | 2025-09-11 16:25 | XMS_ITS | Encounter Summary ---
Author Organization [facility] Address [address] [place] [address] Care Team Providers Care Motor Inspection Mechanic Name Role Phone Danae Sanchez MD Primary Care Provider [phone] Reason for Visit * Reason Onset Date Comments Oxygen order needed 08/25/2025 Encounter Details Date Type Department Care Team ([facility] Contact Info) Description 08/25/2025 Telephone Pulmonology - [place] 175 [facility] [address] [place] [address] Akilah Bowen MD [address] [place] [phone] Social History Tobacco Use Types Packs/Day [...] for your loved ones. For example, child and adolescent therapist or elderly care for an older [...] as of this encounter Progress Notes * Amanda Metcalf MA - 08/25/2025 10:32 AM EST Patient was advised to contact [facility] for oxygen replacement if they need more information they will contact our office * Michelle Pastrana - 08/25/2025 10:21 AM EST Patients visiting nurse called, stated that she was just discharged from a rehab facility and is onoxygen orders as needed. The nurse states that her oxygen is broken and she is in need of a new oxygen order. She has asked that if there are any questions to please call the at [phone] documented in this encounter Plan of Treatment Upcoming Encounters Date Type Department Care Team ([facility] st Contact Info) Description 09/15/2025 3:15 PM EST Appointment [facility] at [facility] [address] [place] [phone] 10/20/2025 3:30 PM EST Ancillary Procedure [facility] - [facility] [address] [place] [address] 11/26/2025 2:45 PM EST Office Visit Internal Medicine - [place] 175 [facility] [address] [place] [phone] Danae Sanchez MD [address] [place] [address] 12/01/2025 3:45 PM EDT Office Visit Pulmonology - [place] 175 [facility] [address] [place] [phone] Akilah Bowen MD [address] [place] [address] documented as of this encounter Visit Diagnoses Not on filedocumented in this encounter Additional Health Concerns Assessment Noted Time PHQ-9 Depression Total Score: 9 01/08/20 25 12:13 PM EDT documented as of this encounter Care Teams Motor Inspection Mechanic Relationship Specialty Start Date End Date Danae Sanchez MD [address] [address] PCP - General Internal Medicine 08/06/24 documented as of this encounter
--- OUTSIDE RECORDS SUMMARY | 2025-09-11 16:25 | XMS_ITS | Encounter Summary ---
Author Organization [facility] Address [address] [place] [address] Care Team Providers Care Pump Attendant Name Role Phone Danae Sanchez MD Primary Care Provider [phone] Encounter Details Date Type Department Care Team (Late Contact Info) Description 08/06/2025 Lab Requisition [facility] - Main Lab [address] [facility] [place] [phone] Rogelio Avelar MD [address] [place] [address] Anemia, unspecified Social History Tobacco Use Types [...] for your loved ones. For example, children's attendant or elderly care for an older adult? [...] For Mammography at [facility] [address] [place] [phone] 10/20/2025 3:30 PM EST Ancillary Procedure [facility] - [address] [place] [phone] 11/26/2025 2:45 PM EST Office Visit Internal Medicine - [place] 175 [facility] [address] [place] [phone] Danae Sanchez MD [address] [place] [phone] 12/01/2025 3:45 PM EDT Office Visit Pulmonology - [place] 175 [facility] [address] [place] [phone] Akilah Bowen MD [address] [place] [phone] documented as of this encounter Procedures Procedure Name Priority Date/Time Associated Diagnosis Comments COMPLETE BLOOD COUNT Routine 08/07/2025 8:19 AM EST Anemia, unspecified BASIC METABOLIC PANEL Routine 08/07/2025 8:19 AM EST Anemia, unspecified documented in this encounter Results * (ABNORMAL) Basic metabolic panel (08/07/2025 8:19 AM EST) Sodium 140 133 - 145 mmol/L LAB CHEMISTRY METHOD 08/07/2025 12:14 PM EST [facility] Potassium 3.6 3.5 - 5.5 mmol/L LAB CHEMISTRY METHOD 08/07/2025 12:14 PM EST [facility] Chloride 102 96 - 110 mmol/L LAB CHEMISTRY METHOD 08/07/2025 12:14 PM EST [facility] CO2 32 21 - 32 mmol/L LAB CHEMISTRY METHOD 08/07/2025 12:14 PM EST [facility] Anion Gap 6 3 - 11 LAB CHEMISTRY METHOD 08/07/2025 12:14 PM [facility] Glucose 53(L) 70 - 100 mg/dL LAB CHEMISTRY METHOD 08/07/2025 12:14 PM [facility] BUN 26(H) 5 - 25 mg/dL LAB CHEMISTRY METHOD 08/07/2025 12:14 PM [facility] Creatinine 1.05 0.50 - 1.10 mg/dL LAB CHEMISTRY METHOD 08/07/2025 12:14 PM [facility] eGFR 54(L) >=60 mL/min/1. 73m2 LAB CHEMISTRY METHOD 08/07/2025 12:14 PM [facility] Comment:Calculation based on the Chronic Kidney Disease Epidemiology Collaboration (CKD-EPI) equation refit without adjustment for race. BUN/Creatinine Ratio 24.8 LAB CHEMISTRY METHOD 08/07/2025 12:14 PM [facility] Calcium 8.2(L) 8.5 - 10.5 mg/dL LAB CHEMISTRY METHOD 08/07/2025 12:14 PM [facility] Blood Venous blood specimen / Unknown Venipuncture / Unknown 08/07/2025 8:19 AM EST 08/07/2025 11:21 AM EST Rogelio Avelar MD LAB BLOOD ORDERABLES Final Result [facility] [address] [place] [address], * (ABNORMAL) Complete blood count (08/07/2025 8:19 AM EST) WBC 11.7(H) 4.8 - 10.8 K/[facility] LAB HEMETOLOGY METHOD 08/07/2025 11:34 AM EST [facility] RBC 3.30(L) 3.80 - 4.80 M/[facility] LAB HEMETOLOGY METHOD 08/07/2025 11:34 AM [facility] Hemoglobin 9.7(L) 11.5 - 16.0 g/dL LAB HEMETOLOGY METHOD 08/07/2025 11:34 AM [facility] Hematocrit 30.4(L) 35.0 - 47.0 % LAB HEMETOLOGY METHOD 08/07/2025 11:34 AM [facility] MCV 93.3 79.0 - 98.0 FL LAB HEMETOLOGY METHOD 08/07/2025 11:34 AM [facility] MCH 29.8 27.0 - 32.0 pcg LAB HEMETOLOGY METHOD 08/07/2025 11:34 AM [facility] MCHC 31.9(L) 32.0 - 37.0 g/dL LAB HEMETOLOGY METHOD 08/07/2025 11:34 AM [facility] RDW 17.7(H) 11.0 - 15.0 % LAB HEMETOLOGY METHOD 08/07/2025 11:34 AM [facility] Platelets 339 130 - 400 K/mcL LAB HEMETOLOGY METHOD 08/07/2025 11:34 AM [facility] MPV 10.4 7.0 - 11.0 FL LAB HEMETOLOGY METHOD 08/07/2025 11:34 AM [facility] NRBC 0.0 <1.0 % LAB HEMETOLOGY METHOD 08/07/2025 11:34 AM [facility] NRBC Absolute 0.00 <0.10 K/mcL LAB HEMETOLOGY METHOD 08/07/2025 11:34 AM [facility] Blood Venous blood specimen / Unknown Venipuncture / Unknown 08/07/2025 8:19 AM EST 08/07/2025 11:18 AM EST Rogelio Avelar MD LAB BLOOD ORDERABLES Final Result [facility] [address] [place] [address], documented in this encounter Visit Diagnoses Diagnosis Anemia, unspecified documented in this encounter Additional Health Concerns Assessment Noted Time PHQ-9 Depression Total Score: 9 01/08/20 25 12:13 PM EDT documented as of this encounter Care Teams Pump Attendant Relationship Specialty Start Date End Date Danae Sanchez MD 175 [facility] 200 [place] [phone] PCP - General Internal Medicine 08/06/24 documented as of this encounter
--- OUTSIDE RECORDS SUMMARY | 2025-09-11 16:25 | XMS_ITS | Encounter Summary ---
Author Organization [facility] Address [address] [place] [address] Care Team Providers Care Stamps Or Coins Salesperson Name Role Phone Danae Sanchez MD Primary Care Provider [phone] Reason for Visit * Reason Onset Date Comments Request For Order(s) 08/28/2025 Ebony COLEMAN Order # [id number] Encounter Details Date Type Department Care Team ([facility] Contact Info) Description 08/28/2025 Telephone Internal Medicine - [place] 175 [facility] [address] [place] [address] Giovanna Graham MA Social History [...] care for your loved ones. For example, childrens club attendant or elderly care for an older [...] Progress Notes * Giovanna Graham MA - 08/29/2025 6:50 AM EST Scanned into chart and faxed to Ebony [phone] * Giovanna Graham MA - 08/28/2025 10:30 AM EST Ebony A Order # [id number] Please sign & documented in this encounter Plan of Treatment Upcoming Encounters Date Type Department Care Team (Late st Contact Info) Description 09/15/2025 3:15 PM EST Appointment [facility] at [facility] [address] [place] [phone] 10/20/2025 3:30 PM EST Ancillary Procedure [facility] - [facility] [address] [facility] [address] [place] [address] 11/26/2025 2:45 PM EST Office Visit Internal Medicine - [place] [address] [phone] Danae Sanchez MD [address] [place] [phone] 12/01/2025 3:45 PM EDT Office Visit Pulmonology - [place] [address] [phone] Akilah Bowen MD [address] [place] [phone] documented as of this encounter Visit Diagnoses Not on filedocumented in this encounter Additional Health Concerns Assessment Noted Time PHQ-9 Depression Total Score: 9 01/08/20 25 12:13 PM EDT documented as of this encounter Care Teams Stamps Or Coins Salesperson Relationship Specialty Start Date End Date Danae Sanchez MD 175 [facility] [address] [place] [phone] PCP - General Internal Medicine 08/06/24 documented as of this encounter
--- OUTSIDE RECORDS SUMMARY | 2025-09-11 16:25 | XMS_ITS | Encounter Summary ---
Author Organization [facility] Address [address] [place] [address] Care Team Providers Care Knife Blade Polisher Name Role Phone Danae Sanchez MD Primary Care Provider [phone] Encounter Details Date Type Department Care Team ([facility] Info) Description 07/23/2025 Lab Requisition [facility] - Main Lab 299 [facility] [place] [phone] Rogelio Avelar MD [address] [place] [address] Anemia, unspecified Social History Tobacco Use Types [...] for your loved ones. For example, director of early childhood education or elderly care for an older adult? [...] PM EST Appointment [facility] at [facility] [address] [place] [phone] 10/20/2025 3:30 PM EST Ancillary Procedure [facility] - [address] [place] [phone] 11/26/2025 2:45 PM EST Office Visit Internal Medicine - [place] 175 [facility] 200 [place] [phone] Danae Sanchez MD 230 [place] [phone] 12/01/2025 3:45 PM EDT Office Visit Pulmonology - [place] 175 [facility] 200 [place] [phone] Akilah Bowen MD 230 [place] [phone] documented as of this encounter Procedures Procedure Name Priority Date/Time Associated Diagnosis Comments COMPLETE BLOOD COUNT Routine 07/24/2025 7:40 AM EDT Anemia, unspecified BASIC METABOLIC PANEL Routine 07/24/2025 7:40 AM EDT Anemia, unspecified documented in this encounter Results * (ABNORMAL) Basic metabolic panel (07/24/2025 7:40 AM EDT) Sodium 138 133 - 145 mmol/L LAB CHEMISTRY METHOD 07/24/2025 12:16 PM EDT [facility] Potassium 3.4(L) 3.5 - 5.5 mmol/L LAB CHEMISTRY METHOD 07/24/2025 12:16 PM EDT [facility] Chloride 101 96 - 110 mmol/L LAB CHEMISTRY METHOD 07/24/2025 12:16 PM EDT [facility] CO2 30 21 - 32 mmol/L LAB CHEMISTRY METHOD 07/24/2025 12:16 PM EDT [facility] Anion Gap 7 3 - 11 LAB CHEMISTRY METHOD 07/24/2025 12:16 PM EDT [facility] Glucose 55(L) 70 - 100 mg/dL LAB CHEMISTRY METHOD 07/24/2025 12:16 PM T [facility] BUN 30(H) 5 - 25 mg/dL LAB CHEMISTRY METHOD 07/24/2025 12:16 PM EDT [facility] Creatinine 0.94 0.50 - 1.10 mg/dL LAB CHEMISTRY METHOD 07/24/2025 12:16 PM EDT [facility] eGFR 62 >=60 mL/min/1. 73m2 LAB CHEMISTRY METHOD 07/24/2025 12:16 PM T [facility] Comment:Calculation based on the Chronic Kidney Disease Epidemiology Collaboration (CKD-EPI) equation refit without adjustment for race. BUN/Creatinine Ratio 31.9 LAB CHEMISTRY METHOD 07/24/2025 12:16 PM T [facility] Calcium 8.8 8.5 - 10.5 mg/dL LAB CHEMISTRY METHOD 07/24/2025 12:16 PM [facility] Blood Venous blood specimen / Unknown Venipuncture / Unknown 07/24/2025 7:40 AM EDT 07/24/2025 10:10 AM EDT Rogelio Avelar MD LAB BLOOD ORDERABLES Final Result [facility] [address] [place] [address], * (ABNORMAL) Complete blood count (07/24/2025 7:40 AM EDT) WBC 11.3(H) 4.8 - 10.8 K/mcL LAB HEMETOLOGY METHOD 07/24/2025 11:11 AM EDT [facility] RBC 3.50(L) 3.80 - 4.80 M/mcL LAB HEMETOLOGY METHOD 07/24/2025 11:11 AM [facility] Hemoglobin 10.2(L) 11.5 - 16.0 g/dL LAB HEMETOLOGY METHOD 07/24/2025 11:11 AM [facility] Hematocrit 32.2(L) 35.0 - 47.0 % LAB HEMETOLOGY METHOD 07/24/2025 11:11 AM [facility] MCV 92.5 79.0 - 98.0 FL LAB HEMETOLOGY METHOD 07/24/2025 11:11 AM [facility] MCH 29.3 27.0 - 32.0 pcg LAB HEMETOLOGY METHOD 07/24/2025 11:11 AM [facility] MCHC 31.7(L) 32.0 - 37.0 g/dL LAB HEMETOLOGY METHOD 07/24/2025 11:11 AM [facility] RDW 18.1(H) 11.0 - 15.0 % LAB HEMETOLOGY METHOD 07/24/2025 11:11 AM [facility] Platelets 275 130 - 400 K/mcL LAB HEMETOLOGY METHOD 07/24/2025 11:11 AM [facility] MPV 10.9 7.0 - 11.0 FL LAB HEMETOLOGY METHOD 07/24/2025 11:11 AM [facility] NRBC 0.0 <1.0 % LAB HEMETOLOGY METHOD 07/24/2025 11:11 AM [facility] NRBC Absolute 0.00 <0.10 K/mcL LAB HEMETOLOGY METHOD 07/24/2025 11:11 AM [facility] Blood Venous blood specimen / Unknown Venipuncture / Unknown 07/24/2025 7:40 AM EDT 07/24/2025 10:11 AM EDT us Rogelio Avelar MD LAB BLOOD ORDERABLES Final Result [facility] [address] [place] [address], documented in this encounter Visit Diagnoses Diagnosis Anemia, unspecified documented in this encounter Additional Health Concerns Assessment Noted Time PHQ-9 Depression Total Score: 9 01/08/20 25 12:13 PM EDT documented as of this encounter Care Teams Knife Blade Polisher Relationship Specialty Start Date End Date Danae Sanchez MD 175 [facility] 200 [place] [address] PCP - General Internal Medicine 08/06/24 documented as of this encounter
--- OUTSIDE RECORDS SUMMARY | 2025-09-11 16:25 | XMS_ITS | Encounter Summary ---
Author Organization [facility] Address [address] [place] [address] Care Team Providers Care Supervisor Specialty Plant Name Role Phone Danae Sanchez MD Primary Care Provider [phone] Encounter Details Date Type Department Care Team (Late Contact Info) Description 07/30/[address] [facility] - Main Lab 299 [facility] [place] [phone] Rogelio Avelar MD [address] [place] [address] Anemia, unspecified Social History Tobacco Use Types [...] care for your loved ones. For example, school childcare attendant or elderly care for an older [...] PM EST Appointment [facility] at [facility] [address] [place] [phone] 10/20/2025 3:30 PM EST Ancillary Procedure [facility] - [address] [place] [phone] 11/26/2025 2:45 PM EST Office Visit Internal Medicine - [place] 175 [facility] 200 [place] [phone] Danae Sanchez MD 230 [place] [phone] 12/01/2025 3:45 PM EDT Office Visit Pulmonology - [place] 175 [facility] 200 [place] [phone] Akilah Bowen MD [address] [place] [phone] documented as of this encounter Procedures Procedure Name Priority Date/Time Associated Diagnosis Comments COMPLETE BLOOD COUNT Routine 07/31/2025 7:33 AM EST Anemia, unspecified BASIC METABOLIC PANEL Routine 07/31/2025 7:33 AM EST Anemia, unspecified documented in this encounter Results * (ABNORMAL) Basic metabolic panel (07/31/2025 7:33 AM EST) Sodium 140 133 - 145 mmol/L LAB CHEMISTRY METHOD 07/31/2025 12:23 PM EST [facility] Potassium 3.4(L) 3.5 - 5.5 mmol/L LAB CHEMISTRY METHOD 07/31/2025 12:23 PM EST [facility] Chloride 101 96 - 110 mmol/L LAB CHEMISTRY METHOD 07/31/2025 12:23 PM EST [facility] CO2 32 21 - 32 mmol/L LAB CHEMISTRY METHOD 07/31/2025 12:23 PM EST [facility] Anion Gap 7 3 - 11 LAB CHEMISTRY METHOD 07/31/2025 12:23 PM [facility] Glucose 53(L) 70 - 100 mg/dL LAB CHEMISTRY METHOD 07/31/2025 12:23 PM [facility] BUN 28(H) 5 - 25 mg/dL LAB CHEMISTRY METHOD 07/31/2025 12:23 PM [facility] Creatinine 1.01 0.50 - 1.10 mg/dL LAB CHEMISTRY METHOD 07/31/2025 12:23 PM [facility] eGFR 57(L) >=60 mL/min/1. 73m2 LAB CHEMISTRY METHOD 07/31/2025 12:23 PM [facility] Comment:Calculation based on the Chronic Kidney Disease Epidemiology Collaboration (CKD-EPI) equation refit without adjustment for race. BUN/Creatinine Ratio 27.7 LAB CHEMISTRY METHOD 07/31/2025 12:23 PM [facility] Calcium 9.0 8.5 - 10.5 mg/dL LAB CHEMISTRY METHOD 07/31/2025 12:23 PM [facility] Blood Venous blood specimen / Unknown Venipuncture / Unknown 07/31/2025 7:33 AM EST 07/31/2025 10:11 AM EST Rogelio Avelar MD LAB BLOOD ORDERABLES Final Result [facility] [address] [place] [address], * (ABNORMAL) Complete blood count (07/31/2025 7:33 AM EST) WBC 11.8(H) 4.8 - 10.8 K/[facility] LAB HEMETOLOGY METHOD 07/31/2025 11:30 AM EST [facility] RBC 3.50(L) 3.80 - 4.80 M/[facility] LAB HEMETOLOGY METHOD 07/31/2025 11:30 AM [facility] Hemoglobin 10.1(L) 11.5 - 16.0 g/dL LAB HEMETOLOGY METHOD 07/31/2025 11:30 AM [facility] Hematocrit 32.5(L) 35.0 - 47.0 % LAB HEMETOLOGY METHOD 07/31/2025 11:30 AM [facility] MCV 93.9 79.0 - 98.0 FL LAB HEMETOLOGY METHOD 07/31/2025 11:30 AM [facility] MCH 29.2 27.0 - 32.0 pcg LAB HEMETOLOGY METHOD 07/31/2025 11:30 AM [facility] MCHC 31.1(L) 32.0 - 37.0 g/dL LAB HEMETOLOGY METHOD 07/31/2025 11:30 AM [facility] RDW 17.4(H) 11.0 - 15.0 % LAB HEMETOLOGY METHOD 07/31/2025 11:30 AM [facility] Platelets 332 130 - 400 K/mcL LAB HEMETOLOGY METHOD 07/31/2025 11:30 AM [facility] MPV 10.5 7.0 - 11.0 FL LAB HEMETOLOGY METHOD 07/31/2025 11:30 AM [facility] NRBC 0.0 <1.0 % LAB HEMETOLOGY METHOD 07/31/2025 11:30 AM [facility] NRBC Absolute 0.00 <0.10 K/mcL LAB HEMETOLOGY METHOD 07/31/2025 11:30 AM [facility] Blood Venous blood specimen / Unknown Venipuncture / Unknown 07/31/2025 7:33 AM EST 07/31/2025 10:11 AM EST Rogelio Avelar MD LAB BLOOD ORDERABLES Final Result [facility] [address] [place] [address], documented in this encounter Visit Diagnoses Diagnosis Anemia, unspecified documented in this encounter Additional Health Concerns Assessment Noted Time PHQ-9 Depression Total Score: 9 01/08/20 25 12:13 PM EDT documented as of this encounter Care Teams Supervisor Specialty Plant Relationship Specialty Start Date End Date Danae Sanchez MD 175 [facility] 200 [place] [address] PCP - General Internal Medicine 08/06/24 documented as of this encounter
--- OUTSIDE RECORDS SUMMARY | 2025-09-11 16:25 | XMS_ITS | Encounter Summary ---
Author Organization [facility] Address [address] [place] [address] Care Team Providers Care Gear Repair Supervisor Name Role Phone Danae Sanchez MD Primary Care Provider [phone] Encounter Details Date Type Department Care Team ([facility] Contact Info) Description 09/08/2025 Telephone Internal Medicine - [place] 175 [facility] [address] [place] [address] Danae Sanchez MD [address] [place] [address] Social History Tobacco Use Types [...] for your loved ones. For example, child protection specialist or elderly care for an older adult? [...] as of this encounter Progress Notes * Mariola Weinberg - 09/09/2025 11:41 AM EST Called to Carol to let her know that Patient should have a chest Xray. LVM and let her know she can CMB with any questions. * Danae Sanchez MD - 09/09/2025 9:55 AM EST CXR ordered * Nadia Jurado - 09/08/2025 2:50 PM EST Vna noted breath sounds - crackles bilat lungs Fatigue No fever Dry cough Any concerns contact patient per Carol RN Phone number recorded can leave voicemail [phone] documented in this encounter Plan of Treatment Upcoming Encounters Date Type Department Care Team (Late st Contact Info) Description 09/15/2025 3:15 PM EST Appointment [facility] at [facility] [address] [place] [phone] 10/20/2025 3:30 PM EST Ancillary Procedure [facility] - [facility] [address] 300 [facility] 101 [place] [address] 11/26/2025 2:45 PM EST Office Visit Internal Medicine - [place] 175 [facility] 200 [place] [address] Danae Sanchez MD [address] [place] [phone] 12/01/2025 3:45 PM EDT Office Visit Pulmonology - [place] 175 [facility] 200 [place] [phone] Akilah Bowen MD [address] [place] [phone] documented as of this encounter Results * XR Chest 2 [...] replacement surgery since the prior examination. Code 36892 -------- FINAL REPORT -------- Dictated By: Krishna Jain Dictated Date: 09/11/2025 07:51 ET Assigned Physician: Krishna Jain Reviewed and Electronically Signed By: Krishna Jain Signed Date: 09/11/2025 07:55 ET Workstation ID: [id number] Transcribed By: Self Edit Transcribed Date: 09/11/2025 [...] shoulderreplacement surgery since the prior examination. Code 37537 -------- FINAL REPORT -------- Dictated By: Krishna Jain Dictated Date: 09/11/2025 07:51 ET Assigned Physician: Krishna Jain Reviewed and Electronically Signed By: Krishna Jain Signed Date: 09/11/2025 07:55 ET Workstation ID: [id number] Transcribed By: Self Edit Transcribed Date: 09/11/2025 07:51 ET Danae Sanchez MD IMG XR PROCEDURES Final Result documented in this encounter Visit Diagnoses Diagnosis Subacute cough- Primary Subacute cough documented in this encounter Additional Health Concerns Assessment Noted Time PHQ-9 Depression Total Score: 9 01/08/20 25 12:13 PM EDT documented as of this encounter Care Teams Gear Repair Supervisor Relationship Specialty Start Date End Date Danae Sanchez MD [address] [place] [phone] PCP - General Internal Medicine 08/06/24 documented as of this encounter
--- OUTSIDE RECORDS SUMMARY | 2025-09-11 16:25 | XMS_ITS | Encounter Summary ---
Author Organization [facility] Address [address] [place] [address] Care Team Providers Care Knife Cutter Name Role Phone Danae Sanchez MD Primary Care Provider [phone] Encounter Details Date Type Department Care Team ([facility] Contact Info) Description 08/27/2025 Results Follow-Up Internal Medicine - [place] 175 [facility] [address] [place] [phone] Danae Sanchez MD [address] [place] [address] Social History Tobacco Use Types [...] your loved ones. For example, child care centre director or elderly care for an older [...] EST Appointment [facility] at [facility] [address] [place] [phone] 10/20/2025 3:30 PM EST Ancillary Procedure [facility] - [facility] [address] [facility] [address] [place] [phone] 11/26/2025 2:45 PM EST Office Visit Internal Medicine - [place] 175 [facility] 200 [place] [phone] Danae Sanchez MD [address] [place] [phone] 12/01/2025 3:45 PM EDT Office Visit Pulmonology - [place] [address] [phone] Akilah Bowen MD [address] [place] [phone] documented as of this encounter Visit Diagnoses Not on filedocumented in this encounter Additional Health Concerns Assessment Noted Time PHQ-9 Depression Total Score: 9 01/08/20 25 12:13 PM EDT documented as of this encounter Care Teams Knife Cutter Relationship Specialty Start Date End Date Danae Sanchez MD [address] [phone] PCP - General Internal Medicine 08/06/24 documented as of this encounter
--- OUTSIDE RECORDS SUMMARY | 2025-09-11 16:25 | XMS_ITS | Clinical Summary ---
Author Organization [facility] Prior to 02/22/25 Address [address] [place] [address] Care Team Providers Care Hospital Coordinator Name Role Phone Danae Sanchez MD Primary Care Provider [phone] Allergies Active Allergy Reactions Criticality Noted Date [...] 1 tablet by mouth. 0 07/11/2014 Active Lub[place]-3 Fatty Acids (FISH OIL) 1000 MG CAPS [...] age to complete this topic Care Teams Hospital Coordinator Relationship Specialty Start Date End Date Danae Sanchez MD 175 [facility] 200 [place] [address] PCP - General Internal Medicine 04/05/19
--- OUTSIDE RECORDS SUMMARY | 2025-09-11 16:25 | XMS_ITS | Encounter Summary ---
Author Organization [facility] Address [address] [place] [address] Care Team Providers Care Stable Hand Name Role Phone Danae Sanchez MD Primary Care Provider [phone] Reason for Visit * Reason Onset Date Comments Forms([employer]) 08/22/2025 Encounter Details Date Type Department Care Team ([facility] Contact Info) Description 08/22/2025 Telephone Internal Medicine - [place] 175 [facility] [address] [place] [address] Danae Sanchez MD [address] [place] [address] Social History Tobacco Use Types Packs/Day [...] your loved ones. For example, child care provider or elderly care for an older adult? [...] as of this encounter Progress Notes * Nisha Bishop MA - 08/28/2025 4:11 PM EST LVM, patient needs to bring in a new form that is left blank and not pre-filled out so it's done correctly. * Chao Maciel - 08/22/2025 1:50 PM EST Patient dropped of Certification of need for special reasonable accomodation or special unit to be completed by pcp. Patient would like to picking machine operator forms when completed. Please advise [phone] documented in this encounter Plan of Treatment Upcoming Encounters Date Type Department Care Team (Late st Contact Info) Description 09/15/2025 3:15 PM EST Appointment [facility] at [facility] [address] [place] [phone] 10/20/2025 3:30 PM EST Ancillary Procedure [facility] - [facility] [address] [place] [address] 11/26/2025 2:45 PM EST Office Visit Internal Medicine - [place] 175 [facility] 200 [place] [phone] Danae Sanchez MD 230 [place] [address] 12/01/2025 3:45 PM EDT Office Visit Pulmonology - [place] 175 [facility] 200 [place] [phone] Akilah Bowen MD [address] [place] [phone] documented as of this encounter Visit Diagnoses Not on filedocumented in this encounter Additional Health Concerns Assessment Noted Time PHQ-9 Depression Total Score: 9 01/08/20 25 12:13 PM EDT documented as of this encounter Care Teams Stable Hand Relationship Specialty Start Date End Date Danae Sanchez MD [address] [address] PCP - General Internal Medicine 08/06/24 documented as of this encounter
--- OUTSIDE RECORDS SUMMARY | 2025-09-11 16:25 | XMS_ITS | Encounter Summary ---
Author Organization [facility] Address [address] [place] [address] Care Team Providers Care Mechanical Equipment Test Engineer Name Role Phone Danae Sanchez MD Primary Care Provider [phone] Reason for Visit * Reason Onset Date Comments Request For Order(s) 08/28/2025 Ebony COLEMAN Order # [id number] Encounter Details Date Type Department Care Team ([facility] Contact Info) Description 08/28/2025 Telephone Internal Medicine - [place] 175 [facility] [address] [place] [address] Giovanna Graham MA Social History [...] for your loved ones. For example, children's choir director or elderly care for an older [...] Notes * Giovanna Graham MA - 08/29/2025 6:51 AM EST Scanned into chart and faxed to Ebony [phone] * Giovanna Graham MA - 08/28/2025 10:32 AM EST [facility]ony A Order # [id number] Please sign & documented in this encounter Plan of Treatment Upcoming Encounters Date Type Department Care Team (Late st Contact Info) Description 09/15/2025 3:15 PM EST Appointment [facility] at [facility] [address] [place] [phone] 10/20/2025 3:30 PM EST Ancillary Procedure [facility] - [facility] 101 [address] [facility] 101 [place] [address] 11/26/2025 2:45 PM EST Office Visit Internal Medicine - [place] 175 [facility] 200 [place] [phone] Danae Sanchez MD 230 [place] [phone] 12/01/2025 3:45 PM EDT Office Visit Pulmonology - [place] 175 [facility] 200 [place] [phone] Akilah Bowen MD [address] [place] [phone] documented as of this encounter Visit Diagnoses Not on filedocumented in this encounter Additional Health Concerns Assessment Noted Time PHQ-9 Depression Total Score: 9 01/08/20 25 12:13 PM EDT documented as of this encounter Care Teams Mechanical Equipment Test Engineer Relationship Specialty Start Date End Date Danae Sanchez MD 175 [facility] 200 [place] [phone] PCP - General Internal Medicine 08/06/24 documented as of this encounter
== END 2025-09-10 12:36 | disposition home or self-care (01) ==
LOC: HO.HOSX 12:35
PROVIDERS: Visit Provider Orthopaedic Surgery
DX: M25.512 Pain in left shoulder (principal); Z96.612 Presence of left artificial shoulder joint
CPT/HCPCS: 99212

== ENCOUNTER 2025-09-10 13:45 | Outpatient (AMB) | payer MEDICARE, OTHER, SELFPAY ==
--- NOTE | ~2025-09-10 | XR_ITS ---
EXAMINATION: XR SHOULDER, LEFT CLINICAL INFORMATION: M25.512 - Pain in left shoulder COMPARISON: X-ray 06/27/2025 TECHNIQUE: Two views of the left shoulder. FINDINGS: Patient is status post left shoulder total arthroplasty. No acute fracture. No suspicious perihardware lucencies. There is some periosteal changes along the medial aspect of the proximal humerus. Corticated ossification superior to the acetabular component of prosthesis, and medial to the arthroplasty, similar to previous. XR/XR shoulder LT min 2V IMPRESSION: Status post left total shoulder arthroplasty. No evidence of acute fracture. Periosteal changes along the medial aspect of the proximal humerus, nonspecific, clinically correlate Electronically signed by: Az Alves MD 09/11/2025 07:28 AM [facility]
--- NOTE | 2025-09-10 13:45 | A.OFFVIS_ITS ---
Intake Visit Reasons: New Patient - Left Shoulder Pain Intake Note: Mendy is a 79 year old female who presents with complaints of left shoulder pain and weakness. The patient states that she was vacationing in [place] in April when she fell and suffered a left proximal humerus fracture. She underwent surgery by Dr. Hernandez in [place]. Following her surgery she went to rehab because of pneumonia. The patient states that she has lost over 40 lb of weight since that time. She continues with her gentle stretching exercises. She denies any trauma to her shoulder following her surgery. Allergies No Known Allergies Allergy (Verified 09/10/25 14:09) Medication List - Last Reconciled 09/10/25 by Wilfrido Williamson MD albuterol sulfate 90 mcg/actuation (Ventolin HFA) 2 puffs inhalation Q6H PRN bupropion HCl XL 150 mg PO DAILY cyclobenzaprine 5 mg PO TID PRN fluoxetine 40 mg PO DAILY fluticasone furoate 27.5 mcg/actuation 1 spray intranasal DAILY djtemqisxcq-arcfxkffv-adnuudov 100-62.5-25 mcg (Trelegy Ellipta) 1 ea inhalation DAILY hydrochlorothiazide 25 mg PO DAILY losartan 25 mg PO DAILY meloxicam 7.5 mg PO DAILY pravastatin 20 mg PO DAILY timolol maleate 0.5% 1 drp ophthalmic (eye) DAILY tiotropium bromide 1.25 mcg/actuation (Spiriva Respimat) 2 puffs inhalation DAILY trazodone 100 mg PO BEDTIME Physical Exam Extrem Other: Left shoulder examination shows that the surgical incision is well healed, no erythema, mild discomfort with passive range of motion, limited active range of motion Results Reviewed Results Reviewed: X-rays of the patient's left shoulder show a reverse total shoulder arthroplasty in good position with no gross signs of loosening or hardware failure Assessment & Plan Assessment & Plan (1) Left shoulder pain: Code(s): M25.512 - Pain in left shoulder Category: Medical Plan Ms. Jack presents with left shoulder discomfort and weakness after undergoing reverse total shoulder replacement surgery by Dr. Hernandez in [place] on 05/02/2025 of unclear etiology. The patient may just be weak from her recent bouts with pneumonia and muscle mass loss. The patient did not receive much therapy while in rehab for her pneumonia. She is encouraged to continue with her physical therapy exercises. The patient could also have injury to her axillary nerve causing weakness in her deltoid muscle. We will hold off on fu rther diagnostic testing for now to allow her further healing and strengthening exercises. I will see her back in 2-3 months' time for repeat clinical examination. She will contact me prior to that time should her symptoms worsen in any way. Feel free to call me at any time should questions regarding her orthopedic management arise. I spent 22 minutes in reviewing the patient's records and imaging studies, seeing the patient and documenting in the medical record. Orders: Orders XR shoulder LT min 2V Today M25.512 - Pain in left shoulder Coding Level of Care Code Est Pt Level 3 (50950) Add On Problem Visit Only Diagnoses Left shoulder pain M25.512
== END 2025-09-10 14:33 | disposition home or self-care (01) ==
LOC: HO.HOS 13:45
PROVIDERS: PCP Internal Medicine; Visit Provider Orthopaedic Surgery
DX: M25.512 Pain in left shoulder (principal)
CPT/HCPCS: 73030; 99213; G2211

== ENCOUNTER → 2025-09-10 13:52 | Outpatient (BNV) | payer MEDICARE, OTHER, SELFPAY | PROVIDERS: Visit Provider Radiology Diagnostic Ultrasound | DX: M25.512 Pain in left shoulder (principal) | CPT/HCPCS: 73030 ==